=== PATIENT | female | born 1960 | race Caucasian/White ===

== ENCOUNTER → 2020-06-07 | Outpatient (CLI) | payer MEDICAID, OTHER ==
[~2020-06-07] MED LIST: CYCL-707 PO; HYDR-3716 FT
--- NOTE | 2020-06-16 10:55 | REP ---
RIGHT BREAST AND AXILLARY ULTRASOUND COMPARISON: Mammogram and ultrasound performed 05/12/2020 [facility]. Prior mammogram at [facility] 05/12/2020, showed a suspicious density with microcalcifications in the lateral right breast. FINDINGS: Todays ultrasound is performed in the right 10 o'clock region approximately 7 cm from the nipple. At that location, there is a hypoechoic nodule with an echogenic hilum having the appearance of a lymph node measuring 8 x 4 x 5 mm, not significantly enlarged. Right axillary ultrasound is also performed showing multiple lymph nodes. The largest two are measured. Both demonstrate an echogenic fatty hilum and appear relatively unremarkable morphologically. These two larger lymph nodes measure 3.6 x 0.8 x 1.0 cm and 1.3 x 0.5 x 1.7 cm, demonstrating normal short axis dimension. IMPRESSION: ACR 2 benign ultrasound as discussed above at the 10 o'clock position of the right breast 7 cm from the nipple and in the right axillary region. Relatively unremarkable appearing lymph nodes identified as discussed above with echogenic fatty nilton and normal short axis dimensions. Decision to biopsy should be based on clinical grounds. MTDD
== END ==
LOC: M WHC 09:45
PROVIDERS: ATTEND Surgery
DX: R92.2 Inconclusive mammogram (principal)

== ENCOUNTER → 2020-06-16 | Outpatient (CLI) | payer OTHER ==
--- NOTE | 2020-06-16 14:00 | ROOPDOC ---
[facility] Report Of Operation Report of Operation DATE OF PROCEDURE: June 16 2020 DIAGNOSIS: Right breast palpable mass with suspicious mammographic and sonographic findings PROCEDURE: Ultrasound-guided biopsy of right breast palpable mass with clip placement, radiography of the specimen and post biopsy right breast mammogram SURGEON: Beryl Crespo BLOOD LOSS: minimal COMPLICATIONS: none Lidocaine 1% LOT [id number] Expiration 04/2023 Sodium Bicarbonate 8.4% LOT [id number] Expiration 05/2021 Hydromark clip LOT [id number] Expiration 01/2023 SHAPED 3 Bx device: BARD [id number] x10 cm LOT [id number] Expiration 01/2023 Informed consent was obtained. The most common risk and possible complications including bleeding, hematoma, bruising, infection, injury to surrounding structures were explained to the patient and the patient expressed understanding. Patient was placed on the bed in the supine position. Appropriate time out was done stating patients name, date of , and the procedure to be performed. The right breast was prepped and draped in the usual fashion. The ultrasound was used to confirm the location of the lesion in the right breast at 8:00. Plain Lidocaine 1% and 8.4% sodium bicarbonate 10:1 mix was used to anesthetize the skin, the biopsy site and tissues along the anticipated biopsy tract. Small skin incision was made with blade number 11. BARD Marquee 14G cannula with introducer ([id number]) was inserted through the incision and advanced under the ultrasound guidance to position immediately adjacent to the lesion. Next, the introducer was removed and BARD Marquee 14G biopsy device was places in the cannula. Pre-biopsy imaging, and post-biopsy imaging were captured. Five good core biopsies were taken at various levels of the lesion. Core samples were placed in the tray and radiography of the samples was taken showing calcifications present in the samples. Specimen was then placed in formaldehyde, labeled with appropriate biopsy site and patients name, and sent to pathology for evaluation. Next, the biopsy device was withdrawn and a clip introducer was inserted into the biopsy site via the cannula. The SHAPE 3 Hydromark clip was deployed under sonographic guidance. Post-clip placement image was captured. Manual pressure over the biopsy cavity and tract was held after the clip introducer was withdrawn. No bleeding was noted upon removal of the pressure. Post-biopsy mammogram of the right breast was obtained and showed clip in expected position. Postprocedural dressing was placed. Patient tolerated procedure well. Discharge instructions were discussed with the patient and the patient expressed understanding. BERYL CRESPO DO Jun 16, 2020 14:00
[2020-06-16 14:34] VITALS: BP 118/62
--- NOTE | 2020-06-23 15:19 | REP ---
SPECIMEN RADIOGRAPHY RIGHT BREAST HISTORY: Right breast lesion. Ultrasound-guided needle biopsy. Question microcalcifications. FINDINGS: Specimen radiography demonstrates multiple microcalcifications within the removed specimen. MTDD
--- NOTE | 2020-06-23 15:19 | REP ---
POST BIOPSY MAMMOGRAM RIGHT BREAST HISTORY: Ultrasound-guided biopsy right breast. FINDINGS: Following ultrasound-guided biopsy of an area laterally in the right breast, MLO, ML, and CC views of the right breast are performed. There is a metallic clip laterally and posteriorly in the right breast. Heterogeneous fibroglandular tissue was noted throughout the right breast. MTDD
== END ==
LOC: M WHCPRO 10:03
PROVIDERS: ATTEND Surgery
DX: D05.11 Intraductal carcinoma in situ of right breast (principal)

== ENCOUNTER → 2020-06-23 | Outpatient (REF) | payer OTHER ==
[2020-06-23 17:56] LABS: BLOOD UREA NITROGEN 17 MG/DL (7-18); CALCIUM LEVEL 8.9 MG/DL (8.5-10.1); CARBON DIOXIDE LEVEL 26 MEQ/L (21-32); CHLORIDE LEVEL 106 MEQ/L (98-107); CREATININE FOR GFR 0.92 MG/DL (0.55-1.30); GLOMERULAR FILTRATION RATE > 60.0 (>51); GLUCOSE, FASTING 92 MG/DL (70-100); SODIUM LEVEL 138 MEQ/L (136-145)
== END ==
LOC: M PLALAB 14:58
PROVIDERS: ATTEND Surgery
DX: C50.911 Malignant neoplasm of unspecified site of right female breast (principal)

== ENCOUNTER → 2020-07-09 | Outpatient (CLI) | payer OTHER ==
[~2020-07-09] MED LIST changes: +PROHANCE 279.3MG/ML 5ML VIAL As Ordered ONE
--- NOTE | 2020-07-09 16:33 | REP ---
INDICATION: DUCTAL CA RT BREAST. COMPARISON: Mammogram and ultrasound loose skin in [facility] 05/12/2028, right axillary ultrasound 06/07/2020, post biopsy mammogram 06/16/2020. TECHNIQUE: Three Deena MRI imaging was performed with a dedicated breast coil. Axial, coronal, and sagittal T1 and T2 weighted scans were obtained with and without fat saturation in the usual fashion. The study includes dynamically acquired post gadolinium-enhanced imaging with image subtraction. Maximum intensity projection and multi planar reformation imaging is included as well. This study is interpreted with the aid of KelkooD, an FDA approved computer aided detection (CAD) software program, on a dedicated breast MRI workstation. The gadolinium enhancement dose is 10 mL of intravenous ProHance. FINDINGS: There is moderate fibroglandular tissue symmetrically bilaterally. With mild background parenchymal enhancement bilaterally. I do not see significant cystic change in either breast. Nonspecific lymph nodes in both axillary regions are noted, not significantly enlarged using size criteria. Biopsy clip is noted quite posterolaterally in the right breast. There is a very small amount of surrounding fluid. There is mild nodular enhancement at that location. Otherwise no suspicious enhancing mass or morphologic abnormality is seen bilaterally. Incidental note is made of mild bilateral hilar adenopathy. IMPRESSION: BI-RADS category 6 known right breast cancer. Signal dropout is seen at the site of a biopsy clip far posterolaterally in the right breast, at the site of the recent biopsy. There is mild focal nodular enhancement at that location. Otherwise no suspicious enhancing mass or morphologic abnormality is seen elsewhere bilaterally. Axillary lymph nodes are seen bilaterally which are not significantly enlarged. However, there is mild bilateral hilar adenopathy in the chest. Consider CT of the chest with IV contrast to further evaluate. <Electronically signed by Jose C Bai > 07/09/20 [id number]
== END ==
LOC: M RAD 14:06
PROVIDERS: ATTEND Surgery
DX: C50.911 Malignant neoplasm of unspecified site of right female breast (principal)
CPT/HCPCS: A9576; C8908

== ENCOUNTER → 2020-07-19 | Outpatient (CLI) | payer OTHER ==
[~2020-07-19] MED LIST changes: -PROHANCE 279.3MG/ML 5ML VIAL As Ordered ONE
[2020-07-19 08:35] VITALS: BP 112/64
--- NOTE | 2020-07-20 21:05 | ROOPDOC ---
[facility] Report Of Operation Report of Operation DATE OF PROCEDURE: 07/19/20 DIAGNOSIS: Right enlarged axillary lymph node PROCEDURE: Ultrasound guided right axillary lymph node biopsy SURGEON: Beryl Crespo BLOOD LOSS: minimal COMPLICATIONS: none Lidocaine 1% LOT [id number] Expiration 02/2023 Sodium Bicarbonate 8.4% LOT [id number] Expiration02/2021 Hydromark clip LOT [id number] Expiration 01/2023 SHAPE 4 Bx device: TEMNO 20 G [id number] Expiration 02/2024 Informed consent was obtained. The most common risk and possible complications including bleeding, hematoma, bruising, infection, injury to surrounding structures were explained to the patient and the patient expressed understanding. Patient was placed on the bed in the supine position. Appropriate time out was done stating patients name, date of , and the procedure to be performed. The right axilla was prepped and draped in the usual fashion. The ultrasound was used to confirm the location of enlarged lymph node with cortex measuring 5 mm. Plain Lidocaine 1% and 8.4% sodium bicarbonate 10:1 mix was used to anesthetize the skin, the biopsy site and tissues along the anticipated biopsy tract. Small skin incision was made with blade number 11. Temno 20 G cannula with introducer was inserted through the incision and advanced under the ultrasound guidance to position immediately adjacent to the enlarged lymph node with 5 mm cortex. Next, the introducer was removed and Temno 20 G biopsy device was places in the cannula. Pre-biopsy imaging, and post-biopsy imaging were captured. Five good core biopsies were taken at various levels of the lesion. Specimen was placed in formaldehyde, labeled with appropriate biopsy site and patients name, and sent to pathology for evaluation. Next, the biopsy device and cannula were withdrawn and a clip introducer was inserted into the position immediately adjacent to the biopsied lymph node. The shape 4 Hydromark clip was deployed under sonographic guidance. Post-clip placement image was captured. Manual pressure over the biopsy cavity and tract was held after the clip introducer was withdrawn. No bleeding was noted upon removal of the pressure. Postprocedural dressing was placed. Patient tolerated procedure well. Discharge instructions were discussed with the patient and the patient expressed understanding. BERYL CRESPO DO Jul 20, 2020 21:05
--- NOTE | 2020-07-21 12:46 | REP ---
INDICATION: R59.9 RT PALPABLE LYMPH NODE,U/S GUIDED BIOPSY. COMPARISON: 06/07/2020. TECHNIQUE: Real-time sonographic guidance was provided for Dr. Coleman. FINDINGS: Under ultrasound guidance Dr. Coleman performed biopsy of a right axillary nodule. IMPRESSION: Ultrasound guidance provided for Dr. Coleman for right axillary nodule biopsy. RECOMMENDATION: Clinical follow-up. <Electronically signed by Jose C Bai > 07/21/20 0377
== END ==
LOC: M WHCPRO 06:27
PROVIDERS: ATTEND Surgery
DX: R59.9 Enlarged lymph nodes, unspecified (principal)

== ENCOUNTER → 2020-07-28 | Outpatient (CLI) | payer OTHER ==
[~2020-07-28] MED LIST changes: +ISOVUE-370 76% 100ML VIAL As Ordered ONE
--- NOTE | 2020-07-29 07:25 | REP ---
INDICATION: MAL ARIE OF RT BREAST, HILAR ADENOPATHY COMPARISON: None TECHNIQUE: Axial contrast enhanced images from the thoracic inlet to the upper abdomen with coronal and sagittal reformations using 75 ml Isovue 370 intravenous contrast material. [address] CT examination was performed using the following dose reduction techniques: Automated exposure control, adjustment of mA and/or kv according to the patient's size, and use of iterative reconstruction technique. FINDINGS: 7 mm right lower lobe pulmonary nodule (image 53), 9 mm left lower lobe pulmonary nodule (image 58) as well as few smaller 2 mm densities and bilateral hilar adenopathy is concerning for metastatic disease given the patient's history of breast cancer. Underlying chronic age-related interstitial changes along with mild emphysematous changes including few scattered subpleural bullae and mild bronchiectasis identified. No pleural effusion. No pneumothorax. Further evaluation of the mediastinum demonstrates normal thoracic aorta, pulmonary vasculature, and heart/pericardium. Incidental calcified right hilar lymph nodes are also noted. The osseous structures appear intact and without obvious focal osseous abnormality. Limited upper abdomen demonstrates normal bilateral adrenal glands. IMPRESSION: 1. Bilateral pulmonary nodules along with bilateral hilar adenopathy suspicious for metastatic disease. PET-CT follow-up as well as tissue sampling may be warranted. 2. Nonacute findings as above. <Electronically signed by Gabe Dee > 07/29/20 0778
== END ==
LOC: M RAD 16:34
PROVIDERS: ATTEND Surgery
DX: R91.8 Other nonspecific abnormal finding of lung field (principal); R59.0 Localized enlarged lymph nodes; C50.911 Malignant neoplasm of unspecified site of right female breast
CPT/HCPCS: 71260; Q9967

== ENCOUNTER → 2020-09-30 | Outpatient (CLI) | payer OTHER ==
[~2020-09-30] MED LIST changes: +ANAS1TAB2 PO; -ISOVUE-370 76% 100ML VIAL As Ordered ONE; +SERT25TA21 PO; +SUMA25TA3 PO; +XANA0.25 PO
== END ==
LOC: M LABSMTC 10:42
PROVIDERS: ATTEND Anesthesiology
DX: Z01.812 Encounter for preprocedural laboratory examination (principal); Z20.822 Contact with and (suspected) exposure to COVID-19

== ENCOUNTER 2020-10-05 06:35 | Day surgery (SDC) | payer OTHER ==
[~2020-10-05] VITALS: Ht 152.4 cm; Wt 56.2 kg
[~2020-10-05 06:35] MED LIST changes: +HEPARIN SOD (PORCINE) 5000UNITS/ML 1ML VIAL/SYRINGE SQ ONE; +LR 1,000 ML IV ONE; +NS 1,000 ML IV SCH; +ceFAZolin SOD 2 GM in IV 1 EA IV ONE
--- OUTSIDE RECORDS SUMMARY | 2020-10-05 06:40 | CCD ---
Author Author [facility] Organization [facility] Address Unknown Phone Unavailable Care Team Providers Care Truck Driver'S Offsider Name Role Phone Tricia Coleman Unavailable PROBLEMS Type Condition ICD9-CM Code [id number] Code Onset Dates Condition S tatus SNOMED Code Notes Problem Smoker F17.200 Active 70344104 Problem Malignant neoplasm of unspecified site of right female breast C50.911 Active 101791803 Problem Malignant neoplasm of right female breast, unspecified estrogen receptor status, unspecified site of breast C50.911 Active 3 75049342 ALLERGIES Allergen (clinical drug ingredient) Drug/Non Drug Allergy do cumented on EMR Reaction Allergy Type Onset Date Status Sulfacet-R Hives Drug Allergy Active ENCOUNTERS from 1962 to 2020-08-31 Encounter Location Date Provider Diagnosis [facility] Breast Care [address] [place] [address] Aug, Tricia Coleman IMMUNIZATIONS No Information SOCIAL HISTORY Sex Assigned At : Social History Observation Description Sex Assigned At Unknown REASON FOR REFERRAL No Information VITAL SIGNS No information MEDICATIONS Medication SIG (Take, Route, Frequency, Duration) Notes Start Da te End Date Status Zoloft 25 MG 1 tablet Orally Once a day Active PROCEDURES No Information RESULTS No Results REASON FOR VISIT Pet Scan Service Goals Section No Information Health Concerns No Information MEDICAL EQUIPMENT No Information MENTAL STATUS No Information FUNCTIONAL STATUS No Information ASSESSMENTS No Information PLAN OF TREATMENT No Information Insurance Providers Payer Name Payer Address Payer Phone Insured Name Patient Relati onship to Insured Coverage Start Date Coverage End Date REPLACED BY [facility] [address] [place] [phone] BRIDGER CHAPARRO self
--- OUTSIDE RECORDS SUMMARY | 2020-10-05 06:40 | CCD ---
Author Author [facility] Organization [facility] Address Unknown Phone Unavailable Care Team Providers Care Brake Operator Sheet Metal Name Role Phone Tricia Coleman Unavailable PROBLEMS Type Condition ICD9-CM Code [id number] Code Onset Dates Condition S tatus SNOMED Code Notes Problem Smoker F17.200 Active 29486337 Problem Malignant neoplasm of unspecified site of right female breast C50.911 Active 026286989 Problem Malignant neoplasm of right female breast, unspecified estrogen receptor status, unspecified site of breast C50.911 Active 3 97510794 ALLERGIES Allergen (clinical drug ingredient) Drug/Non Drug Allergy do cumented on EMR Reaction Allergy Type Onset Date Status Sulfacet-R Hives Drug Allergy Active ENCOUNTERS from 1960 to 2020-09-19 Encounter Location Date Provider Diagnosis [facility] Breast [facility] [address] [place] [address] Aug, Tricia Coleman Malignant neoplasm of unspecified site o f right female breast C50.911 and Estrogen receptor positive status [ER+] Z17.0 IMMUNIZATIONS No Information SOCIAL HISTORY Sex Assigned At : Social History Observation Description Sex Assigned At Unknown REASON FOR REFERRAL No Information VITAL SIGNS No information MEDICATIONS Medication SIG (Take, Route, Frequency, Duration) Notes Start Da te End Date Status Zoloft 25 MG 1 tablet Orally Once a day Active PROCEDURES No Information RESULTS No Results REASON FOR VISIT PET scan reordered Goals Section No Information Health Concerns No Information MEDICAL EQUIPMENT No Information MENTAL STATUS No Information FUNCTIONAL STATUS No Information ASSESSMENTS Encounter Date Diagnosis Assessment Notes Treatment Notes Treatm ent Clinical Notes Aug, Malignant neoplasm of unspec ified site of right female breast (ICD- 10 - C50.911) Aug, Estrogen receptor positive status [ER+] (ICD-10 - Z17.0) PLAN OF TREATMENT Treatment Notes Test Name Order Date [facility] PET CT SCAN: SKULL TO MID-THIGH 2020-09-19 Insurance Providers Payer Name Payer Address Payer Phone Insured Name Patient Relati onship to Insured Coverage Start Date Coverage End Date [facility] [employer] [address] [facility] [phone] BRIDGER CHAPARRO self
--- OUTSIDE RECORDS SUMMARY | 2020-10-05 06:40 | CCD ---
Author Author [facility] Organization [facility] Address Unknown Phone Unavailable Care Team Providers Care Supervisor Stave Cutting Name Role Phone Tricia Coleman Unavailable PROBLEMS Type Condition ICD9-CM Code CUA81-II Code Onset Dates Condition S tatus SNOMED Code Notes Problem Smoker F17.200 Active 61527458 Problem Malignant neoplasm of unspecified site of right female breast C50.911 Active 804094293 Problem Malignant neoplasm of right female breast, unspecified estrogen receptor status, unspecified site of breast C50.911 Active 3 29471721 ALLERGIES Allergen (clinical drug ingredient) Drug/Non Drug Allergy do cumented on EMR Reaction Allergy Type Onset Date Status Sulfacet-R Hives Drug Allergy Active ENCOUNTERS from 1962 to 2020-08-27 Encounter Location Date Provider Diagnosis [facility] Breast Care [address] [place] [address] 11 Jul, 2020 Tricia Coleman IMMUNIZATIONS No Information SOCIAL HISTORY Sex Assigned At : Social History Observation Description Sex Assigned At Unknown REASON FOR REFERRAL No Information VITAL SIGNS No information MEDICATIONS Medication SIG (Take, Route, Frequency, Duration) Notes Start Da te End Date Status Zoloft 25 MG 1 tablet Orally Once a day Active PROCEDURES No Information RESULTS No Results REASON FOR VISIT [facility] Goals Section No Information Health Concerns No Information MEDICAL EQUIPMENT No Information MENTAL STATUS No Information FUNCTIONAL STATUS No Information ASSESSMENTS No Information PLAN OF TREATMENT No Information Insurance Providers Payer Name Payer Address Payer Phone Insured Name Patient Relati onship to Insured Coverage Start Date Coverage End Date [facility] [employer] [facility] [address] [place] [phone] CHAPO CHAPARROIA self
--- OUTSIDE RECORDS SUMMARY | 2020-10-05 06:40 | CCD ---
Author Author [facility] Organization [facility] Address Unknown Phone Unavailable Care Team Providers Care Site Inspector Name Role Phone Tricia Coleman Unavailable PROBLEMS Type Condition ICD9-CM Code [id number] Code Onset Dates Condition S tatus SNOMED Code Notes Problem Smoker F17.200 Active 27527900 Problem Malignant neoplasm of unspecified site of right female breast C50.911 Active 897484093 Problem Malignant neoplasm of right female breast, unspecified estrogen receptor status, unspecified site of breast C50.911 Active 3 [id number] ALLERGIES Allergen (clinical drug ingredient) Drug/Non Drug Allergy do cumented on EMR Reaction Allergy Type Onset Date Status Sulfacet-R Hives Drug Allergy Active ENCOUNTERS from 1962 to 2020-08-10 Encounter Location Date Provider Diagnosis [facility] [address] [place] [address] Jun, Tricia Coleman Malignant neoplasm of right female breas t, unspecified estrogen receptor status, unspecified site of breast C50.911 ; Genetic testing Z13.79 and Smoker F17.200 IMMUNIZATIONS No Information SOCIAL HISTORY Sex Assigned At : Social History Observation Description Sex Assigned At Unknown REASON FOR REFERRAL No Information VITAL SIGNS Weight 112.8 lbs Jun, Weight-kg 51.17 kg Jun, Height 60 in Jun, BMI 22.03 kg/m2 Jun, Heart Rate 64 /min Jun, Respiratory Rate 18 /min Jun, Temperature 97.1 degrees Fahrenheit Jun, Oximetry 97 Jun, Blood pressure systolic 132 mm Hg Jun, Blood pressure diastolic 68 mm Hg Jun, MEDICATIONS Medication SIG (Take, Route, Frequency, Duration) Notes Start Da te End Date Status Zoloft 25 MG 1 tablet Orally Once a day Active PROCEDURES No Information RESULTS Component Value Reference Range Basic Metabolic Profile (BMP) Reviewed date:07/09/2020 18:52:32 Interpretation: Performing Lab:[facility], [facility] [address] [facility] [address] , ,[place] [id number] GLUCOSE, FASTING 92 70-100 BLOOD UREA NITROGEN 17 7-18 CREATININE FOR GFR 0.92 0.55-1.30 GLOMERULAR FILTRATION RATE > 60.0 >51 SODIUM LEVEL 138 136-145 POTASSIUM SERUM 4.0 3.5-5.1 CHLORIDE LEVEL 106 98-107 CARBON DIOXIDE LEVEL 26 21-32 CALCIUM LEVEL 8.9 8.5-10.1 REASON FOR VISIT 1 WEEK FOLLOW UP BIOPSY Goals Section No Information Health Concerns No Information MEDICAL EQUIPMENT No Information MENTAL STATUS No Information FUNCTIONAL STATUS No Information ASSESSMENTS Encounter Date Diagnosis Assessment Notes Treatment Notes Treatm ent Clinical Notes Jun, Malignant neoplasm of right female breast, unspecified estrogen receptor status, unspecified site of breast (ICD-10 - C50.911) RIGHT BREAST CANCER (9:00) IDC ER? SC ? HER2 ? GRADE 2 cT 1b-c (6 mm on US, 1.5cm on mammo) cN0-1 (palpable, US negative) cM0 STAGE 1-2 PLAN: 1: awaiting results of ER/SC/HER2, sent to [facility] 2. MRI of breast to delineate extent of disease, BMP t check sCr prior to contrast 3. Will defer surgical decision until post MRI 4. Pt had palpable R axill LN (she is very thin), however US is negative, Will wait for MRI to make decision if the palpable LN needs bx or not 5. Genetic testing, will provide pt with the kit at f/u as the lab is closed today 6. Oncotype DX postop if cancer meets criteria 7. Referral to Medical Oncology post surgery 8. Referral to Radiation Oncology post surgery 9. May need Plastic referral for oncoplasty vs recon I reviewed the pathology results with Ms. Chaparro and I informed her that the preliminary report is positive for breast cancer: invasive ductal carcinoma GRADE2. I informed patient that we are still waiting for the results of ER/SC/HER2 receptors. Those were sent to [facility] and will be back in couple of d ays. I will update patient on those results. We have reviewed the overall breast cancer evaluation and staging. Based on the current information Ms. Chaparro cancer on sonography measures 6mm. I believe that this likely corresponds with the invasive component. On Mammogram, there are calcifications spanning 1.5 cm which may represent in-situ component and will also need to be removed. She is likely at T1 category. We will get MRI of the breast to further delineate the extent of the disease and assure that no additional foci of cancer are present. BMP will be ordered as well to check kidney function prior to contrast Ms. Chaparro was found to have a small palpable node in the right axilla on exam, however she is very thin. The US of the right axilla did not show abnormality. It is possible that this is just small lymph node felt due to body habitus. I will reassess this node after MRI. I have discussed various component of multidisciplinary approach to breast cancer which includes local treatments with surgery and radiation therapy and systemic treatments with antihormonal pill and possible chemotherapy. Regarding surgical component of the treatment, I explained that, surgery carries risks and potential complications, most common of which are risk of bleeding, infection and injury to surrounding structures. I informed patient that her current smoking stattus increases her risks of complictions regardless of which surgical approach is chosen. We have discussed that with breast conserving surgery there is a higher risk of locoregional recurrence of tumor because there is more [place] breast tissue left behind. The percentage of locoregional recurrence is lower with mastectomy than with breast conserving surgery but it is not zero as it is impossible to remove 100% of all breast tissue cells during mastectomy. There is also 10-20% chance of positive margins with breast conserving surgery which will warrant additional surgery to clear those margins. I also explained that with breast conserving surgery she may need to have radiation therapy in order to assure equal survival between the breast conservative treatment and mastectomy. Radiation therapy after mastectomy will be warranted only if the final mastectomy margins are positive or if lymph nodes are positive. We have also discussed that if she chooses mastectomy, she is entitled to reconstruction if she wishes to have it. Reconstruction options will be discussed in details with plastic surgeon. I have explained to the patient that reconstruction is considered part of breast cancer treatment and is covered by insurance. I explained that in cases of invasive cancer, we pursue sentinel lymph node biopsy in fit patients in addition to removal of the tumor from the breast. I explained that this is done to test the very first lymph nodes draining the breast for presence of cancer. This will be done with radionucleotide injection and possibly with blue dye tracer. If the lymph nodes contain cancer, depending on what surgery was performed and how many lymph nodes are positive, additional surgery and/ or radiation therapy to axilla may be warranted as well. I will send a prescription for the EMLA cream to be applied to the affected nipple in order to decrease discomfort of injections prior to scheduling patient for surgery. Regarding evaluation of contralateral breast, she had a screening mammogram done and no abnormality was identified. We are getting MRI of the breast which will also evaluate contralateral breast. Since patient was diagnosed with breast cancer, she qualifies for genetic testing. We will provide her with the genetic testing kit at the follow-up as the lab is closed already today. I explained that it can take a few weeks for the results to come back assuming that her insurance company pays for the test. I discussed with the patient that Oncotype Dx is used to predict the probability of cancer coming back. It is used in hormone positive Her2 negative tumors which were not treated previously with neoadjuvant chemotherapy. I explained that if the test comes back with a high score, chemotherapy may be considered. We will plan on getting Oncotype Dx after surgery if patient has cancer which meets criteria for this test. I will place referral for Medical Oncology. This appointment can be scheduled after surgery. I explained to the patient that she may need to follow up with radiation oncology if she wants to pursue breast conserving surgery or if lymph nodes or mastectomy margins are positive. I will place this referral. She can schedule appointment with [facility] after surgery. Finally, I asked patient to schedule appointment with her primary care doctor as we will need a surgical clearance, latest labs and imaging (CBC, BMP, CXR,EKG). Patient was advised to quit smoking as well. All questions were answered. Patient agrees with the plan. Time spent directly counseling patient: 60 min. Jun, Genetic testing (ICD-10 - Z13.79) Patient is eligible for genetic testing base on her diagnosis of breast cancer. Possible outcomes of genetic testing were discussed with patient with emphasis on the fact that the majority of cancers are not related to germline mutations but are rather due to somatic mutations. I have explained that the genetic testing can come back as positive for specific pathological gene mutation, as negative, or as variant of unknown significance (VUS) which means that there is duration in the gene however we do not have enough information to determine the significance importance of this ulceration. I explained to the patient that we do not asked on VUS and treat them as negative until they are reclassified as pathologically significant mutation or benign alteration. We have discussed that regardless of test outcome patient cannot have her health insurance denied in the future. Patient is interested in proceeding with genetic testing. The lab is closed today already. We will provide her with the blood kit on followup. We will update her about the results of genetic testing when the test is completed. ADDENDUM: I GAVE PATIENT THE GENETIC TESTING KIT ON 06/23/20. Jun, Smoker (ICD-10 - F17.200) Smoking cessation was advised PLAN OF TREATMENT Treatment Notes Assessment Notes Clinical Notes Malignant neoplasm of right female breas t, unspecified estrogen receptor status, unspecified site of breast RIGHT BREAST CANCER (9:00)IDC ER? SC ? H ER2 ? GRADE 2cT 1b-c (6 mm on US, 1.5cm on mammo) cN0-1 (palpable, US negative) cM0 STAGE 1- 2PLAN:1: awaiting results of ER/SC/HER2, sent to [facility]. MRI of breast to delineate extent of disease, BMP t check sCr prior to contrast3. Will defer surgical decision until post MRI4. Pt had palpable R axill LN (she is very thin), however US is negative, Will wait for MRI to make decision if the palpable LN needs bx or not5. Genetic testing, will provide pt with the kit at f/u as the lab is closed today6. Oncotype DX postop if cancer meets criteria7. Referral to Medical Oncology post surgery8. Referral to Radiation Oncology post surgery9. May need Plastic referral for oncoplasty vs reconI reviewed the pathology results with Ms. Chaparro and I informed her that the preliminary report is positive for breast cancer: invasive ductal carcinoma GRADE2. I informed patient that we are still waiting for the results of ER/SC/HER2 receptors. Those were sent to [facility] and will be back in couple of days. I will update patient on those results.We have reviewed the overall breast cancer evaluation and staging. Based on the current information Ms. Chaparro cancer on sonography measures 6mm. I believe that this likely corresponds with the invasive component. On Mammogram, there are calcifications spanning 1.5 cm which may represent in-situ component and will also need to be removed. She is likely at T1 category. We will get MRI of the breast to further delineate the extent of the disease and assure that no additional foci of cancer are present. BMP will be ordered as well to check kidney function prior to contrastMs. Van was found to have a small palpable node in the right axilla on exam, however she is very thin. The US of the right axilla did not show abnormality. It is possible that this is just small lymph node felt due to body habitus. I will reassess this node after MRI.I have discussed various component of multidisciplinary approach to breast cancer which includes local treatments with surgery and radiation therapy and systemic treatments with antihormonal pill and possible chemotherapy.Regarding surgical component of the treatment, I explained that, surgery carries risks and potential complications, most common of which are risk of bleeding, infection and injury to surrounding structures. I informed patient that her current smoking stattus increases her risks of complictions regardless of which surgical approach is chosen.We have discussed that with breast conserving surgery there is a higher risk of locoregional recurrence of tumor because there is more [place] breast tissue left behind. The percentage of locoregional recurrence is lower with mastectomy than with breast conserving surgery but it is not zero as it is impossible to remove 100% of all breast t issue cells during mastectomy. There is also 10-20% chance of positive margins with breast conserving surgery which will warrant additional surgery to clear those margins. I also explained that with breast conserving surgery she may need to have radiation therapy in order to assure equal survival between the breast conservative treatment and mastectomy. Radiation therapy after mastectomy will be warranted only if the final mastectomy margins are positive or if lymph nodes are positive.We have also discussed that if she chooses mastectomy, she is entitled to reconstruction if she wishes to have it. Reconstruction options will be discussed in details with plastic surgeon. I have explained to the patient that reconstruction is considered part of breast cancer treatment and is covered by insurance.I explained that in cases of invasive cancer, we pursue sentinel lymph node biopsy in fit patients in addition to removal of the tumor from the breast. I explained that this is done to test the very first lymph nodes draining the breast for presence of cancer. This will be done with radionucleotide injection and possibly with blue dye tracer. If the lymph nodes contain cancer, depending on what surgery was performed and how many lymph nodes are positive, additional surgery and/ or radiation therapy to axilla may be warranted as well. I will send a prescription for the EMLA cream to be applied to the affected nipple in order to decrease discomfort of injections prior to scheduling patient for surgery.Regarding evaluation of contralateral breast, she had a screening mammogram done and no abnormality was identified. We are getting MRI of the breast which will also evaluate contralateral breast.Since patient was diagnosed with breast cancer, she qualifies for genetic testing. We will provide her with the genetic testing kit at the follow-up as the lab is closed already today. I explained that it can take a few weeks for the results to come back assuming that her insurance company pays for the test.I discussed with the patient that Oncotype Dx is used to predict the probability of cancer coming back. It is used in hormone positive Her2 negative tumors which were not treated previously with neoadjuvant chemotherapy. I explained that if the test comes back with a high score, chemotherapy may be considered. We will plan on getting Oncotype Dx after surgery if patient has cancer which meets criteria for this test.I will place referral for Medical Oncology. This appointment can be scheduled after surgery.I explained to the patient that she may need to follow up with radiation oncology if she wants to pursue breast conserving surgery or if lymph nodes or mastectomy margins are positive. I will place this referral. She can schedule appointment with [facility] after surgery.Finally, I asked patient to schedule appointment with her primary care doctor as we will need a surgical clearance, latest labs and imaging (CBC, BMP, CXR,EKG). Patient was advised to quit smoking as well.All questions were answered. Patient agrees with the plan.Time spent directly counseling patient: 60 min. Genetic testing Patient is eligible for gene tic testing base on her diagnosis of breast cancer.Possible outcomes of genetic testing were discussed with patient with emphasis on the fact that the majority of cancers are not related to germline mutations but are rather due to somatic mutations.I have explained that the genetic testing can come back as positive for specific pathological gene mutation, as negative, or as variant of unknown significance (VUS) which means that there is duration in the gene however we do not have enough information to determine the significance importance of this ulceration. I explained to the patient that we do not asked on VUS and treat them as negative until they are reclassified as pathologically significant mutation or benign alteration.We have discussed that regardless of test outcome patient cannot have her health insurance denied in the future.Patient is interested in proceeding with genetic testing. The lab is closed today already. We will provide her with the blood kit on followup. We will update her about the results of genetic testing when the test is completed.ADDENDUM: I GAVE PATIENT THE GENETIC TESTING KIT ON 06/23/20. Smoker Smoking cessation was advised Treatment Notes Test Name Order Date MRI Breast Bilat with and w/o Contrast 2020-08-10 Insurance Providers Payer Name Payer Address Payer Phone Insured Name Patient Relati onship to Insured Coverage Start Date Coverage End Date [facility] [employer] [facility] [address] [facility] [id number] BRIDGER CHAPARRO self
--- OUTSIDE RECORDS SUMMARY | 2020-10-05 06:40 | CCD ---
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 Name Role Phone Tricia Coleman Unavailable PROBLEMS Type Condition ICD9-CM Code [id number] Code Onset Dates Condition S tatus SNOMED Code Notes Problem Smoker F17.200 Active 52925225 Problem Malignant neoplasm of unspecified site of right female breast C50.911 Active 018330435 Problem Malignant neoplasm of right female breast, unspecified estrogen receptor status, unspecified site of breast C50.911 Active 3 [id number] ALLERGIES Allergen (clinical drug ingredient) Drug/Non Drug Allergy do cumented on EMR Reaction Allergy Type Onset Date Status Sulfacet-R Hives Drug Allergy Active ENCOUNTERS from 1960 to 2020-09-13 Encounter Location Date Provider Diagnosis [facility] Breast [facility] [address] [place] [address] Aug, Tricia Coleman IMMUNIZATIONS No Information SOCIAL [...] No Results REASON FOR VISIT Pet Scan Goals Section No Information Health Concerns No Information MEDICAL EQUIPMENT No Information MENTAL STATUS No Information FUNCTIONAL STATUS No Information ASSESSMENTS No Information PLAN OF TREATMENT No Information Insurance Providers Payer Name Payer Address Payer Phone Insured Name Patient Relati onship to Insured Coverage Start Date Coverage End Date [facility] [employer] [address] [phone] BRIDGER CHAPARRO self
--- OUTSIDE RECORDS SUMMARY | 2020-10-05 06:40 | CCD | Summary of Care ---
Author Author [facility] Organization [facility] Address Unknown Phone Unavailable Care Team Providers Care Compositor Apprentice Name Role Phone Lynn Syed MD PCP Reason for Referral * Imaging (Emergency) Referred By Contact Referred To Contact Status Reason Specialty Diagnoses / Procedures Sheyla Hernandez MD [address] [place] [address] Fax Pet Scan [address] [place] [address] Authorized Radiology Diagnoses Lung nodule seen on imaging study P rocedures PET/CT skull base to mid thigh Reason for Visit * Imaging (Emergency) Referred By Contact Referred To Contact Status Reason Specialty Diagnoses / Procedures Sheyla Hernandez MD [address] [place] [address] Fax Pet Scan [address] [place] [address] Authorized Radiology Diagnoses Lung nodule seen on imaging study P rocedures PET/CT skull base to mid thigh Encounter Details Care Team Description Date Type Department Sheyla Hernandez MD [address] [place] [address] Lung nodule seen on imaging study 09/15/2020 [facility] RADIOLOGY PET SCAN Encounter FAXTON [address] [place] [address] Allergies Comments Active Allergy Reactions Severity Noted Date Sulfaguanidine 08/11/2020 documented as of this encounter (statuses as of 09/16/2020) Medications End Date Status Medication Sig Dispensed Refills Start Date Active ALPRAZolam (XANAX) 0.25 Take 0.25 mg 0 mg tablet by mouth at night if needed for anxiety. Active acetaminophen-codeine 0 (TYLENOL #2) 300-15 mg 0 per tablet Active sertraline (ZOLOFT) 25 mg Take 25 mg by 0 07/18 tablet mouth 1 (one) 0 time each day. Active SUMAtriptan (IMITREX) 25 TAKE 1 TABLET 0 07/29 mg tablet BY MOUTH AT 0 THE ONSET OF THE HEADACHE IF NO RELIEF MAY REPEAT ONE TAB IN 2 HOURS. MAX DAILY DOSE IS 4 TABS 03/07/2021 Active anastrozole (ARIMIDEX) 1 Swallow whole 30 tablet 5 mg chemo tablet with a drink 0 of water.1 TAB PO DAILY documented as of this encounter (statuses as of 09/16/2020) Active Problems Problem Noted Date Anxiety 08/16/2020 Head injury without skull fracture 08/16/2020 Breast cancer, right 08/11/2020 Osteoarthritis 04/14/2014 Overview: left hip, hand documented as of this encounter (statuses as of 09/16/2020) Immunizations Name Administration Dates Next Due Influenza, 08/18/2020 injectable,quadrivalent, preservative free documented as of this encounter Social History Date Tobacco Use Types Packs/Day Years Used Current Every Day Smoker Cigarettes 1.5 40 Drinks/Week oz/Week Comments Alcohol Use Not Currently Sex Assigned at Date Recorded Not on file Date Recorded COVID-19 Exposure Response 09/15/2020 1:32 PM EST In the last month, have you been in contact with No / Unsure someone who was confirmed or suspected to have Coronavirus / COVID-19? documented as of this encounter Last Filed Vital Signs Not on filedocumented in this encounter Plan of Treatment Health Maintenance Due Date Last Done Comments Mammogram (every 2 years) 1960 MMR Vaccines (1 of - 11/27/1963 Standard series) Varicella Vaccines (1 of 11/27/1963 2 - 2-dose childhood series) DTaP,Tdap,and Td Vaccines 1969 (1 - Tdap) Cervical Cancer Screening 1992 Colorectal Cancer 2013 Screening Lung Cancer Screening 2017 Pneumococcal Vaccine: 65+ 11/27/2027 Years (1 of 1 - PPSV23) Influenza Vaccine Completed 08/18/2020 HIB Vaccines Aged Out No longer eligible based on patient's age to complete this topic Hepatitis A Vaccines Aged Out No longer eligibl e based on patient's age to complete this topic Hepatitis B Vaccines Aged Out No longer eligibl e based on patient's age to complete this topic IPV Vaccines Aged Out No longer eligible based on patient's age to complete this topic documented as of this encounter Procedures Comments Procedure Name Priority Date/Time Associated Diag nosis PET/CT SKULL BASE TO MID STAT 09/15/2020 Lung nodule seen on THIGH 3:11 PM EST imaging study documented in this encounter Results * PET/CT skull base to mid thigh (09/15/2020 3:11 PM EST) Specimen Impressions Performed At NODULES IN THE POSTERIOR LOWER LOBES DO NOT HAVE SIGN IFICANT [facility] INCOMING PS360 METABOLIC UPTAKE. RESULTING AGENCY FOLLOW-UP LOW DOSE CHEST CT IN ONE YEA R WOULD BE REASONABLE. Electronically Signed by Dr Olivier Ibrahim MD 09/15/2020 3:17 PM Narrative Performed At Patient: NATALY ARAUJO [facility] INCOMING PS360 RESULTING AGENCY : 1960 [facility] Procedure: PET/CT SKULL BASE TO MID THI Provider: SHEYLA HERNANDEZ PET/CT HISTORY: Initial treatment strategy. Right lateral breast cancer diagnosed June.1: Solitary pulmonary n odule TECHNIQUE: Axial 3.75 mm images were ob tained from the base of the skull to the bottom of the thighs with low-dose prot ocol CT. Following intravenous administration 11.9 mCi of F-18 FDG PET scan was performed from base of skull to upper thighs. Co-registration was perfo rmed 3-D reconstructed imaging performed. COMPARISON: Chest CT 07/28/2020 FINDINGS: HEAD AND NECK: No hypermetabolism is se en in the neck. 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 This does not have abnormal metabolic uptake. There is additional nodule in the post erior medial left lower lobe measuring approximately 7 mm. This also does not have significant me tabolic uptake. FINDINGS are stable from prior recent chest CT. No suspicious nodules have developed. No hilar or mediastinal adenopathy is seen. No pleural effusion seen. The heart is not enlarged. No hyp ermetabolic activity is seen. ABDOMEN AND PELVIS: The liver is unremarkable. Gallbladder is unremarkable. Spleen is unremarkable. Pancreas is unremarkable. Kidneys are unremarkable. No bowel abnormality seen. No retroperitoneal or pelvic adenopat hy is seen. No abnormal metabolic activity is seen. OSSEOUS STRUCTURES:Bony structures show no hypermetabolic focus to suggest metastatic disease. No body wall lesion is identified. Procedure Note Interface, Radiology Results In - 09/15/2020 3:18 PM EST Patient: NATALY ARAUJO : 1960 PACS System: [facility] [place] Procedure: PET/CT SKULL BASE TO MID THIGH Provider: SHEYLA HERNANDEZ PET/CT HISTORY: Initial treatment strategy. Right lateral breast cancer diagnosed June.1: Solitary pulmonary nodule TECHNIQUE: Axial 3.75 mm images were obtained from the base of the skull to the bottom of the thighs with low-dose protocol CT. Following intravenous administration 11.9 mCi of F-18 FDG PET scan was performed from base of skull to upper thighs. Co-registration was performed 3-D reconstructed imaging performed. COMPARISON: Chest CT 07/28/2020 FINDINGS: HEAD AND NECK: No hypermetabolism is seen in the neck. THORAX: There is a nodule in the posterolateral right lower lobe, measuring 7 mm which is stable from previous exam. This does not have abnormal metabolic uptake. There is additional nodule in the posterior medial left lower lobe measuring approximately 7 mm. This also does not have significant metabolic uptake. FINDINGS are stable from prior recent chest CT. No suspicious nodules have developed. No hilar or mediastinal adenopathy is seen. No pleural effusion seen. The heart is not enlarged. No hypermetabolic activity is seen. ABDOMEN AND PELVIS: The liver is unremarkable. Gallbladder is unremarkable. Spleen is unremarkable. Pancreas is unremarkable. Kidneys are unremarkable. No bowel abnormality seen. No retroperitoneal or pelvic adenopathy is seen. No abnormal metabolic activity is seen. OSSEOUS STRUCTURES:Bony structures show no hypermetabolic focus to suggest metastatic disease. No body wall lesion is identified. IMPRESSION: NODULES IN THE POSTERIOR LOWER LOBES DO NOT HAVE SIGNIFICANT METABOLIC UPTAKE. FOLLOW-UP LOW DOSE CHEST CT IN ONE YEAR WOULD BE REASONABLE. Electronically Signed by Dr Olivier Ibrahim MD 09/15/2020 3:17 PM Performing Organization Address City/State/Zipcode Ph one Number [facility] INCOMING PS360 RESULTING AGENCY documented in this encounter Visit Diagnoses Diagnosis Lung nodule seen on imaging study documented in this encounter Administered Medications Action Date Dose Rate Site Medication Order MAR Action 09/15/2020 1:30 PM EST 11.91 millicuries Left A ntecubital FLUDEOXYGLUCOSE F 18 (FDG 18) INJECTION Given SOLUTION (FDG 18) 200 mCi/mL injection 11.91 millicurie 11.91 millicurie, intravenous, Once in imaging, Starting Sun09/15/20 at 1330, 1 dose documented in this encounter Insurance Type Payer Benefit Subscriber ID Effective Phone Address Plan / Dates Group [facility]ILD [id number] 2019-P [place] [phone] documented as of this encounter
--- OUTSIDE RECORDS SUMMARY | 2020-10-05 06:40 | CCD ---
Author Author [facility] Organization [facility] Address Unknown Phone Unavailable Care Team Providers Care Flow Coordinator Name Role Phone Tricia Coleman Unavailable PROBLEMS Type Condition ICD9-CM Code UTV02-RE Code Onset Dates Condition S tatus SNOMED Code Notes Problem Smoker F17.200 Active 63176774 Problem Malignant neoplasm of unspecified site of right female breast C50.911 Active 890111210 Problem Malignant neoplasm of right female breast, unspecified estrogen receptor status, unspecified site of breast C50.911 Active 3 46146883 ALLERGIES Allergen (clinical drug ingredient) Drug/Non Drug Allergy do cumented on EMR Reaction Allergy Type Onset Date Status Sulfacet-R Hives Drug Allergy Active ENCOUNTERS from 1960 to 2020-08-19 Encounter Location Date Provider Diagnosis [facility] [address] [place] [address] May, Tricia Coleman Palpable mass of breast N63.0 ; Abnormal mammogram with microcalcification R92.0 ; Breast mass, right N63.10 ; Palpable lymph node R59.9 ; At high risk for breast cancer Z91.89 ; Family history of breast cancer Z80.3 ; Smoker F17.200 and Weight loss R63.4 IMMUNIZATIONS No Information SOCIAL HISTORY Sex Assigned At : Social History Observation Description Sex Assigned At Unknown REASON FOR REFERRAL No Information VITAL SIGNS No information MEDICATIONS Medication SIG (Take, Route, Frequency, Duration) Notes Start Da te End Date Status Zoloft 25 MG 1 tablet Orally Once a day Active PROCEDURES No Information RESULTS No Results REASON FOR VISIT BIRADS 5 Goals Section No Information Health Concerns No Information MEDICAL EQUIPMENT No Information MENTAL STATUS No Information FUNCTIONAL STATUS No Information ASSESSMENTS Encounter Date Diagnosis Assessment Notes Treatment Notes Treatm ent Clinical Notes May, Palpable mass of breast (ICD-10 - N63.0) RIGHT BREAST PALPABLE MASS 8:00-8:30 I reviewed the images with Ms. Chaparro and explained that there was right breast focal asymmetry noted with ossifications on her diagnostic mammogram. BI-RADS 5 category was assigned to this study which is highly suspicious for malignancy. I also explained to the patient that on her diagnostic focused ultrasound of the right breast there is hypoechoic lesion seen at the area of the palpable mass at 8:30 4.5 cm from the nipple. BI-RADS 4 category was assigned to this study. I spoke with the radiologist from [facility] who thinks that mammographic and sonographic findings represent the same lesion. Ultrasound- guided biopsy with clip placement and post biopsy specimen radiography was advised to assure calcifications are present in the specimen. I informed patient that if they are not and if they sonographic lesion does not correspond with mammographic lesion she will need additional biopsy with stereotactic guidance. At this time, we will start with ultrasound-guided biopsy. I briefly described the procedure to the patient. I explained that after biopsy a marking clip will be placed at the site of biopsy to allow easier localization of the lesion in case biopsy comes back concerning. After the biopsy she will have a gentle mammogram to confirm the position of the clip. I briefly describe risk and possible complications of the procedure including bleeding, infection, and injury to surrounding structures (nipple, skin, muscle, lung). I asked patient not to take any blood thinning medication including aspirin, ibuprofen and or Excedrin 5 days before her biopsy. We'll schedule her for right breast ultrasound-guided biopsy of the lesion located at 8:30 4.5 cm from the nipple, with clip placement and postbiopsy mammogram. Depending on the results of ultrasound of the 9:00 lesion and axilla additional biopsies may be done of those lesions at the same setting. All questions were answered. Patient agrees with the plan. May, Abnormal mammogram with microcalcification (ICD- 10 - R92.0) Right breast mammogram with calcifications. BIRADS 5 - ana suspuicious for breast cancer. see above May, Breast mass, right (ICD-10 - N63.10) RIGHT BREAST MASS 9:00-9:30 I informed patient that on clinical exam there was a second smaller hypoechoic lesion noted on ultrasound of the right breast at 9:00-9:30 7 cm from the nipple. This is posteriorly right at the muscle border. I ordered focused ultrasound of the 9:00-9:30 7 cm from the nipple area to further evaluate this lesion. This will be done prior to scheduled biopsy of 8:00-8:30 lesion. I will call patient with the results. May, Palpable lymph node (ICD-10 - R59.9) I informed the patient that on clinical exam there was right axillary palpable lymph node with possibly thickened cortex. I ordered focused ultrasound of the right axilla to further evaluate this lymph node. This will be done prior to scheduled biopsy of 8:00 breast lesion. I will call patient with the results. May, At high risk for breast cancer (ICD-10 - Z91.89) HIGH RISK SCREENING FOR BREAST CANCER Patient participated in our cancer screening program, cancerIQ, and she was identified as a person at increased risk for development of breast cancer base on her family history. I have discussed with patient that annual mammogram and annual MRI are recommended for screening patients at increased risk of breast cancer. This screening is recommended to be started at the age of 30. The imaging studies are usually by 6 months from each other. I also explained to the patient that clinical breast exam should be done at least twice a year. One exam can be done with me and the other exam can be done with any other clinician as long as two good exams are done per year. Alternatively, I can do both exams if patient wishes for that. Patient had recently diagnostic mammogram and is currently being evaluated for right breast palpable mass. Follow-up mammogram will be ordered for and April 2021. Her screening MRI of the breast will be ordered alter depending on the current evaluation of her BIRADS5 mammogram. Patient will also follow up with me in 6 months for clinical breast exam and review of images. All questions were answered and patient agrees with the plan. May, Family history of breast cancer (ICD-10 - Z80.3) Patient does have family history of breast cancer diagnosed in her mother in her 60s/70 however she is not eligible for genetic testing at this time cancerIQ algorithm. May, Smoker (ICD-10 - F17.200) CURRENT SMOKER Smoking cessation was advised May, Weight loss (ICD-10 - R63.4) Pt reports 20 Lb weight loss in last 2 months. She is following with her primary team. Wt loss was thought to be due to stress and Rx of Zolof was suggested. 17 May, 2020 Other Time spent face to face with the patient with over 50 % of time spent counseling the patient : 45 min PLAN OF TREATMENT Treatment Notes Assessment Notes Clinical Notes Palpable mass of breast RIGHT BREAST PALPABLE MASS 8 :00-8:30I reviewed the images with Ms. Chaparro and explained that there was right breast focal asymmetry noted with ossifications on her diagnostic mammogram. BI-RADS 5 pedro rizzo was assigned to this study which is highly suspicious for malignancy. I also explained to the patient that on her diagnostic focused ultrasound of the right breast there is hypoechoic lesion seen at the area of the palpable mass at 8:30 4.5 cm from the nipple. BI-RADS 4 category was assigned to this study. I spoke with the radiologist from [facility] who thinks that mammographic and sonographic findings represent the same lesion. Ultrasound- guided biopsy with clip placement and post biopsy specimen radiography was advised to assure calcifications are present in the specimen. I informed patient that if they are not and if they sonographic lesion does not correspond with mammographic lesion she will need additional biopsy with stereotactic guidance. At this time, we will start with ultrasound-guided biopsy.I briefly described the procedure to the patient. I explained that after biopsy a marking clip will be placed at the site of biopsy to allow easier localization of the lesion in case biopsy comes back concerning. After the biopsy she will have a gentle mammogram to confirm the position of the clip.I briefly describe risk and possible complications of the procedure including bleeding, infection, and injury to surrounding structures (nipple, skin, muscle, lung).I asked patient not to take any blood thinning medication including aspirin, ibuprofen and or Excedrin 5 days before her biopsy.We'll schedule her for right breast ultrasound-guided biopsy of the lesion located at 8:30 4.5 cm from the nipple, with clip placement and postbiopsy mammogram. Depending on the results of ultrasound of the 9:00 lesion and axilla additional biopsies may be done of those lesions at the same setting.All questions were answered. Patient agrees with the plan. Abnormal mammogram with microcalcification Right breas t mammogram with calcifications. BIRADS 5 - ana suspuicious for breast cancer. see above Breast mass, right RIGHT BREAST MASS 9:00-9:30I informed patient that on clinical exam there was a second smaller hypoechoic lesion noted on ultrasound of the right breast at 9:00-9:30 7 cm from the nipple. This is posteriorly right at the muscle border. I ordered focused ultrasound of the 9:00-9:30 7 cm from the nipple area to further evaluate this lesion. This will be done prior to scheduled biopsy of 8:00-8:30 lesion. I will call patient with the results. Palpable lymph node I informed the patient that on clinical exam there was rightaxillary palpable lymph node with possibly thickened cortex. I ordered focusedultrasound of the right axilla to further evaluate this lymph node. This willbe done prior to scheduled biopsy of 8:00 breast lesion. I will call patientwith the results. At high risk for breast cancer HIGH RISK SCREENING FOR BREAST CANCERPatient participated in our cancer screening program, cancerIQ, and she was identified as a person at increased risk for development of breast cancer base on her fam mikey history.I have discussed with patient that annual mammogram and annual MRI are recommended for screening patients at increased risk of breast cancer. This screening is recommended to be started at the age of 30. The imaging studies are usually by 6 months from each other.I also explained to the patient that clinical breast exam should be done at least twice a year. One exam can be done with me and the other exam can be done with any other clinician as long as two good exams are done per year. Alternatively, I can do both exams if patient wishes for that.Patient had recently diagnostic mammogram and is currently being evaluated for right breast palpable mass. Follow-up mammogram will be ordered for and of April 2021. Her screening MRI of the breast will be ordered alter depending on the current evaluation of her BIRADS5 mammogram.Patient will also follow up with me in 6 months for clinical breast exam and review of images.All questions were answered and patient agrees with the plan. Family history of breast cancer Patient does have fami ly history of breast cancer diagnosedin her mother in her 60s/70 however she is not eligible for genetic testing atthis time cancerIQ algorithm. Smoker CURRENT SMOKERSmoking cessation was advi sed Weight loss Pt reports 20 Lb weight loss in last 2 months. She is following with herprimary team. Wt loss was thought to be due to stress and Rx of Zolof wassuggested. Insurance Providers Payer Name Payer Address Payer Phone Insured Name Patient Relati onship to Insured Coverage Start Date Coverage End Date [facility] COMMUNITY PLAN [facility] [address] [facility] [id number] BRIDGER CHAPARRO self
--- OUTSIDE RECORDS SUMMARY | 2020-10-05 06:40 | CCD ---
Author Author [facility] Organization [facility] Address Unknown Phone Unavailable Care Team Providers Care High School Sports Coach Name Role Phone Tricia Coleman Unavailable PROBLEMS Type Condition ICD9-CM Code EUG95-OC Code Onset Dates Condition S tatus SNOMED Code Notes Problem Smoker F17.200 Active 05210738 Problem Malignant neoplasm of unspecified site of right female breast C50.911 Active 989045420 Problem Malignant neoplasm of right female breast, unspecified estrogen receptor status, unspecified site of breast C50.911 Active 3 14935105 ALLERGIES Allergen (clinical drug ingredient) Drug/Non Drug Allergy do cumented on EMR Reaction Allergy Type Onset Date Status Sulfacet-R Hives Drug Allergy Active ENCOUNTERS from 1960 to 2020-07-30 Encounter Location Date Provider Diagnosis [facility] [address] [place] [address] Jul, Tricia Coleman Malignant neoplasm of unspecified site o f right female breast C50.911 ; Estrogen receptor positive status [ER+] Z17.0 ; Hilar adenopathy R59.0 and Lung nodule, multiple R91.8 IMMUNIZATIONS No Information SOCIAL HISTORY Sex Assigned At : Social History Observation Description Sex Assigned At Unknown REASON FOR REFERRAL No Information VITAL SIGNS No information MEDICATIONS Medication SIG (Take, Route, Frequency, Duration) Start Date En d Date Status Zoloft 25 MG 1 tablet Orally Once a day A ctive PROCEDURES No Information RESULTS No Results REASON FOR VISIT CT chest results Goals Section No Information Health Concerns No Information MEDICAL EQUIPMENT No Information MENTAL STATUS No Information FUNCTIONAL STATUS No Information ASSESSMENTS Encounter Date Diagnosis Notes Jul, Estrogen receptor positive status [ER+] (ICD-10 - Z17.0) Jul, Malignant neoplasm of unspec ified site of right female breast (ICD- 10 - C50.911) Jul, Lung nodule, multiple (ICD-10 - R91.8) Jul, Hilar adenopathy (ICD-10 - R59.0) PLAN OF TREATMENT Treatment Notes Test Name Order Date [facility] PET CT SCAN: SKULL TO MID-THIGH 2020-07-30 Insurance Providers Payer Name Payer Address Payer Phone Insured Name Patient Relati onship to Insured Coverage Start Date Coverage End Date [facility] COMMUNITY PLAN [facility] [address] [facility] [id number] BRIDGER CHAPARRO self
--- OUTSIDE RECORDS SUMMARY | 2020-10-05 06:40 | CCD ---
Author Author [facility] Organization [facility] Address Unknown Phone Unavailable Care Team Providers Care Document Management Analyst Name Role Phone Tricia Coleman Unavailable PROBLEMS Type Condition ICD9-CM Code [id number] Code Onset Dates Condition S tatus SNOMED Code Notes Problem Smoker F17.200 Active 20879766 Problem Malignant neoplasm of unspecified site of right female breast C50.911 Active 191583738 Problem Malignant neoplasm of right female breast, unspecified estrogen receptor status, unspecified site of breast C50.911 Active 3 [id number] ALLERGIES Allergen (clinical drug ingredient) Drug/Non Drug Allergy do cumented on EMR Reaction Allergy Type Onset Date Status Sulfacet-R Hives Drug Allergy Active ENCOUNTERS from 1962 to 2020-08-27 Encounter Location Date Provider Diagnosis [facility] [address] [place] [address] 13 Jul, 2020 Tricia Coleman IMMUNIZATIONS No Information SOCIAL HISTORY Sex Assigned At : Social History Observation Description Sex Assigned At Unknown REASON FOR REFERRAL No Information VITAL SIGNS No information MEDICATIONS Medication SIG (Take, Route, Frequency, Duration) Notes Start Da te End Date Status Zoloft 25 MG 1 tablet Orally Once a day Active PROCEDURES No Information RESULTS No Results REASON FOR VISIT No Information Goals Section No Information Health Concerns No Information MEDICAL EQUIPMENT No Information MENTAL STATUS No Information FUNCTIONAL STATUS No Information ASSESSMENTS No Information PLAN OF TREATMENT No Information Insurance Providers Payer Name Payer Address Payer Phone Insured Name Patient Relati onship to Insured Coverage Start Date Coverage End Date [facility] COMMUNITY PLAN [address] [phone] BRIDGER CHAPARRO self
--- OUTSIDE RECORDS SUMMARY | 2020-10-05 06:40 | CCD ---
Author Author [facility] Organization [facility] Address Unknown Phone Unavailable Care Team Providers Care Cafe Worker Name Role Phone Tricia Coleman Unavailable PROBLEMS Type Condition ICD9-CM Code DTQ66-TD Code Onset Dates Condition S tatus SNOMED Code Notes Problem Smoker F17.200 Active 74410360 Problem Malignant neoplasm of unspecified site of right female breast C50.911 Active 971297544 Problem Malignant neoplasm of right female breast, unspecified estrogen receptor status, unspecified site of breast C50.911 Active 3 [id number] ALLERGIES Allergen (clinical drug ingredient) Drug/Non Drug Allergy do cumented on EMR Reaction Allergy Type Onset Date Status Sulfacet-R Hives Drug Allergy Active ENCOUNTERS from 1962 to 2020-08-27 Encounter Location Date Provider Diagnosis [facility] Breast Care [address] [place] [address] May, Tricia Coleman IMMUNIZATIONS No Information SOCIAL HISTORY Sex Assigned At : Social History Observation Description Sex Assigned At Unknown REASON FOR REFERRAL No Information VITAL SIGNS No information MEDICATIONS Medication SIG (Take, Route, Frequency, Duration) Notes Start Da te End Date Status Zoloft 25 MG 1 tablet Orally Once a day Active PROCEDURES No Information RESULTS No Results REASON FOR VISIT R breast US results Goals Section No Information Health Concerns No Information MEDICAL EQUIPMENT No Information MENTAL STATUS No Information FUNCTIONAL STATUS No Information ASSESSMENTS No Information PLAN OF TREATMENT No Information Insurance Providers Payer Name Payer Address Payer Phone Insured Name Patient Relati onship to Insured Coverage Start Date Coverage End Date [facility] COMMUNITY PLAN [address] [phone] CHAPO CHAPARROIA self
--- OUTSIDE RECORDS SUMMARY | 2020-10-05 06:40 | CCD ---
Author Author [facility] Organization [facility] Address Unknown Phone Unavailable Care Team Providers Care Dust Operator Name Role Phone Tricia Coleman Unavailable PROBLEMS Type Condition ICD9-CM Code MAN65-NP Code Onset Dates Condition S tatus SNOMED Code Notes Problem Smoker F17.200 Active 81757301 Problem Malignant neoplasm of unspecified site of right female breast C50.911 Active 303792102 Problem Malignant neoplasm of right female breast, unspecified estrogen receptor status, unspecified site of breast C50.911 Active 3 [id number] ALLERGIES Allergen (clinical drug ingredient) Drug/Non Drug Allergy do cumented on EMR Reaction Allergy Type Onset Date Status Sulfacet-R Hives Drug Allergy Active ENCOUNTERS from 1962 to 2020-08-27 Encounter Location Date Provider Diagnosis [facility] [address] [place] [address] 04 Aug, 2020 Tricia Coleman IMMUNIZATIONS No Information SOCIAL [...] No Results REASON FOR VISIT PET scan denial and genetic testing discussion Goals Section No Information Health Concerns No Information MEDICAL EQUIPMENT No Information MENTAL STATUS No Information FUNCTIONAL STATUS No Information ASSESSMENTS No Information PLAN OF TREATMENT No Information Insurance Providers Payer Name Payer Address Payer Phone Insured Name Patient Relati onship to Insured Coverage Start Date Coverage End Date [facility] COMM[facility] [id number] [facility] [phone] BRIDGER CHAPARRO self
--- OUTSIDE RECORDS SUMMARY | 2020-10-05 06:40 | CCD ---
Author Author [facility] Organization [facility] Address Unknown Phone Unavailable Care Team Providers Care Windows Admin Name Role Phone Tricia Coleman Unavailable PROBLEMS Type Condition ICD9-CM Code RUJ72-PO Code Onset Dates Condition S tatus SNOMED Code Notes Problem Smoker F17.200 Active 30461061 Problem Malignant neoplasm of unspecified site of right female breast C50.911 Active 302490495 Problem Malignant neoplasm of right female breast, unspecified estrogen receptor status, unspecified site of breast C50.911 Active 3 [id number] ALLERGIES Allergen (clinical drug ingredient) Drug/Non Drug Allergy do cumented on EMR Reaction Allergy Type Onset Date Status Sulfacet-R Hives Drug Allergy Active ENCOUNTERS from 1962 to 2020-09-27 Encounter Location Date Provider Diagnosis [facility] [address] [place] [id number] Sep, Tricia Coleman IMMUNIZATIONS No Information SOCIAL HISTORY Sex Assigned At : Social History Observation Description Sex Assigned At Unknown REASON FOR REFERRAL No Information VITAL SIGNS No information MEDICATIONS Medication SIG (Take, Route, Frequency, Duration) Notes Start Da te End Date Status Lidocaine-Prilocaine 2.5-2.5 % apply entire tube to ri ght nipple and surrounding tissue 2 hours prior to coming for surgery. cover with plastic Externally once for 1 day Sep, Active Zoloft 25 MG 1 tablet Orally Once a day Active PROCEDURES No Information RESULTS No Results REASON FOR VISIT AUTHORIZATION Goals Section No Information Health Concerns No Information MEDICAL EQUIPMENT No Information MENTAL STATUS No Information FUNCTIONAL STATUS No Information ASSESSMENTS No Information PLAN OF TREATMENT Medication Medication Name Sig Start Date Stop Date Lidocaine-Prilocaine 2.5-2.5 % apply entire tube to ri ght nipple and surrounding tissue 2 hours prior to coming for surgery. cover with plastic Externally once for 1 day Sep, Next Appt Details Provider Name:Triciamaria luisa Coleman, 07-10-18 11:00:00 AM, [address] [place] [address], [phone], Provider Name:Tricia Coleman, 07-10-24 01:30:00 PM, [address] [place] [address], [id number], Provider Name:Tricia Coleman, 07-11-14 01:30:00 PM, [address] [place] [address], [id number], Insurance Providers Payer Name Payer Address Payer Phone Insured Name Patient Relati onship to Insured Coverage Start Date Coverage End Date [facility]AN [facility] [address] [facility] [phone] BRIDGER CAHPARRO self
--- OUTSIDE RECORDS SUMMARY | 2020-10-05 06:40 | CCD ---
Author Author [facility] Organization [facility] Address Unknown Phone Unavailable Care Team Providers Care [place] Police Name Role Phone Tricia Coleman Unavailable PROBLEMS Type Condition ICD9-CM Code THX53-EC Code Onset Dates Condition S tatus SNOMED Code Notes Problem Smoker F17.200 Active 52780355 Problem Malignant neoplasm of unspecified site of right female breast C50.911 Active 971728924 Problem Malignant neoplasm of right female breast, unspecified estrogen receptor status, unspecified site of breast C50.911 Active 3 [id number] ALLERGIES Allergen (clinical drug ingredient) Drug/Non Drug Allergy do cumented on EMR Reaction Allergy Type Onset Date Status Sulfacet-R Hives Drug Allergy Active ENCOUNTERS from 1960 to 2020-08-26 Encounter Location Date Provider Diagnosis [facility] [address] [place] [address] 08 Aug, 2020 Tricia Coleman IMMUNIZATIONS No Information [...] Insured Coverage Start Date Coverage End Date [facility] COMMUN[facility] PLAN [address] [phone] BRIDGER CHAPARRO self
--- OUTSIDE RECORDS SUMMARY | 2020-10-05 06:40 | CCD | Continuity of Care Document ---
Author Author [facility] Address [address] [place] [address] Phone Support Name Relationship Address Phone Yee Cook PRS [address] [place] [address] Carolann Ernst PRS [address] [place] [address] Doctor Provided, Family No PRS Unknown Unava ilable Danielle Robbins PRS [address] [place] [address] Brant Jay PRS [address] [place] [address] Allergies, Adverse Reactions, Alerts Allergen Type Severity Reaction Last Updated Verified Status Sulfa (Sulfonamide Antibiotics) Allergy June 11, 2020 8:34am Yes Active Medications Medication Status Dose Units Route Directions Qty Days Start Date End Date Instructions Sertraline Discontinued 25 MG PO daily June 02, 2020 12:42pm June 04, 2020 10:29am Alprazolam Discontinued 0.25 MG PO Three times a day July 01, 2020 2:47pm August 26, 2020 2:25pm Sertraline Active 25 MG PO daily July 29, 2020 4:07pm Sumatriptan Succinate (Imitrex) 25 mg tablet Active 25 MG PO . COMPLEX July 29, 2020 4:08pm take 1 tab at onset of heada ruben; if no relief may repeat 1 tab in 2hr; max = 4 tabs/day (24hr) PO 25 mg Alprazolam Active 0.25 MG PO Three times a day August 26, 2020 2:25pm Cyclobenzaprine Discontinued 1 TAB PO Once Per Day January 05, 2018 5:30pm June 13, 2018 10:40am Hydrocodone-Acetaminophen Discontinued 1 TAB PO Four Times a Day January 05, 2018 5:3 0pm June 13, 2018 10:40am Pseudoephedrine Hcl (Sudafed) 30 MG tablet Discontinued 1 TAB PO E very 24 hours January 05, 2018 5:30pm June 13, 2018 10:40am Methylprednisolone (Medrol (Joel)) 4 mg tablets,dose pa ck Discontinued 0 PO .COMPLEX June 11, 2020 9:03am August 26, 2020 2:06pm orally per package directions Acetaminophen-Codeine Discontinued 1 TAB PO Three times a day June 11 0 9:03am August 26, 2020 2:07pm Tramadol Discontinued 1 TAB PO Every 6 hours 20 June 13, 2018 10:57am June 19, 2018 10:26am Ibuprofen Discontinued 8 00 MG PO Three times a day 60 July 09, 2018 4:28pm January 15, 2019 8:02am WITH FOOD Ibuprofen Discontinued 8 00 MG PO Three times a day 60 July 09, 2018 4:28pm June 02, 2020 12:10pm WITH FO OD Sertraline Discontinued 25 MG PO daily 30 June 04, 2020 10:29am July 29, 2020 4:10pm Problems Active Problems Medical Problem Onset Date Status Rib pain on left side Active Fatigue Active Breast cancer in female Active Anxiety Active Depression Active Calcific supraspinatus tendinitis Active Easy bruising Active Breast mass, right Act mitzi Procedures Procedure Date Performed Status US Breast - Limited Unilat May 122019 10:11am completed 3D DIG MAMMO DIAG ELVIS May 12 020 9:33am completed Relevant Diagnostic Tests and/or Laboratory Data Laboratory Results Test Date/Time Result Interpretation Reference Range Result Comment Performing Site White Blood Count June 11 8:55am 6.7 10e3/uL 4.45-10.71 [facility], [address] [place] [address] 13430 Red Blood Count June 11, 2020 8:55a m 4.19 10e6/uL 4.20-5.40 [facility], [address] [place] [address] 59698 Hemoglobin June 11, 2020 8:55am 12.5 g/dL 10.7-15.4 [facility], [address] [place] [address] 04082 Hematocrit June 11, 2020 8:55am 39.9 % 37-47 [facility], [address] [place] [address] 85541 Mean Corpuscular Volume June 112019 8:55am 95.2 fl 80-96 [facility], [address] [place] [address] 71623 Mean Corpuscular Hemoglobin Mayemb r 2019 8:55am 29.8 pg 27-31 [facility], [address] [place] [address] Mean Corpuscular Hemoglobin Concent June 11, 2020 8:55am 31.3 g/dl 33-37 [facility], [address] [place] [address] Red Cell Distribution Width r 2019 8:55am 13 % 11-15 [facility], [address] [place], [place] [id number] Platelet Count June 11, 2020 8:55am 230 10e3/ul 130-472 [facility], [address] [place], [place] [address] Mean Platelet Volume June 11, 2020 8:55am 10.0 fl 9.1-13.1 [facility], [address] [place] [address] 69230 Neutrophils (%) (Auto) May 8:55am 63.2 % 41-77 [facility], [address] [place] [address] 70274 Absolute Neutrophil June 11, 2020 8:55am 4.2 # 1.7-7.6 [facility], [address] [place] [address] 64318 Lymphocytes (%) (Auto) May 8:55am 23.8 % 14-46 [facility], [address] [place] [address] 48264 Lymphocytes # (Auto) June 11, 2020 8:55am 1.6 # 0.6-4.6 [facility], [address] [place] [address] 99875 Monocytes (%) (Auto) June 11, 2020 8:55am 8.9 % 4-12 [facility], [address] [place] [address] 10586 Monocytes # June 11, 2020 8:55am 0.6 # 0.2-1.2 [facility], [address] [place] [address] 16077 Eosinophils (%) (Auto) May 8:55am 2.9 % 0-7 [facility], [address] [place] [address] 87953 Absolute Eosinophils (CBC) June 11, 2020 8:55am 0.2 # 0.0-0.5 [facility], [address] [place] [address] 58505 Basophils (%) (Auto) June 11, 2020 8:55am 0.9 % 0.4-1.3 [facility], [address] [place] [address] Absolute Basophils (CBC) May 192019 8:55am 0.1 # 0.0-0.2 [facility], [address] [place] [address] 26353 Immature Granulocyte % (Auto) Sept2019 8:55am 0.3 % 0-2 [facility], [address] [place] [address] 32536 Absolute Immature Granulocyte (auto June 11, 2020 8:55am 0.0 # 0-0.1 [facility], [address] [place], [place] [address] Add Manual Differential June 112019 8:55am No [facility], [address] [place], [place] [address] Prothrombin Time June 11 0 8:55am 10.2 SECONDS 9.6-12.3 [facility], [address] [place], [place] [address] INR International Normalized Ratio S eptember 2019 8:55am 1.0 0.9-1.1 THE INR IS OPERATIONALLY DEFINED FOR SWETA SH PLASMA FROMPATIENTS STABILIZED ON ORAL ANTICOAGULANTS. ROUTINE ANTICOAGULANT THERAPY 2.0-3.0RECURRENT SYSTEMIC EMBOLISM/HEART VALVE REPLACEMENT 2.5-3.5 [facility], [address] [place] [address] 88032 Blood Urea Nitrogen June 11, 2020 8:55am 12 mg/dL 9-23 [facility], [address] [place] [address] 09389 Sodium Level June 11, 2020 8:55am 142 mmol/L 132-146 [facility], [address] [place] [address] 35994 Potassium Level June 11, 2020 8:55a m 4.4 mmol/L 3.5-5.5 [facility], [address] [place] [address] 92893 Chloride Level June 11, 2020 8:55am 111 mmol/l 99-109 [facility], [address] [place] [address] 69559 Carbon Dioxide Level June 11, 2020 8:55am 29 mmol/l 20-31 [facility], [address] [place] [address] 18498 Anion Gap June 11, 2020 8:55am 6 mmol/l 8-16 [facility], [address] [place] [address] 67357 Glucose Level June 11, 2020 8:55am 92 mg/dL 74-106 [facility], [address] [place] [address] 83492 Creatinine June 11, 2020 8:55am 0.6 mg/dL 0.5-1.1 [facility], [address] [place] [address] 03041 Glomerular Filtration Rate Calc Sept emb2019 8:55am Greater than 60 ml/min ABOVE 60 [facility], [address] [place] [address] 76491 Alanine Aminotransferase (ALT/SGPT) June 11, 2020 8:55am 33 U/L 10-49 [facility], [address] [place] [address] 53816 Aspartate Amino Transf (AST/SGOT) Se pt2019 8:55am 16 U/L 0-33 [facility], [address] [place] [address] 36211 Alkaline Phosphatase June 11, 2020 8:55am 93 U/L 45-129 [facility], [address] [place] [address] 60892 Calcium Level June 11, 2020 8:55am 8.8 mg/dL 8.5-10.1 [facility], [address] [place] [address] 79264 Total Bilirubin June 11, 2020 8:55a m 0.4 mg/dL 0.3-1.2 [facility], [address] [place] [address] 20771 Albumin June 11, 2020 8:55am 3.5 g/dL 3.2-4.8 [facility], [address] [place] [address] 99645 Serum Total Protein June 11, 2020 8:55am 7.2 g/dL 5.7-8.2 [facility], [address] [place] [address] 46460 Thyroid Stimulating Hormone (TSH) Se pt2019 8:55am 2.01 uIU/mL 0.35-5.50 [facility], [address] [place] [address] 01544 Diagnostic Imaging Reports Report Dictated Date/Time Dictated By Status Radiology Report May 12, 2020 5:28pm Nj Palacios MD completed [facility] [address] [place] [address] [phone] NAME SEX PT STATUS ACCOUNT NUMBER BRIDGER CHAPARRO REG REF [id number] ORDERING PHYSICIAN LOCATION MEDICAL RECORD NO. 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 Multiple images of the right breast at the 8:00 location were obtained, encompassing the area of clinical concern. FINDINGS: A cyst with low-level echoes measuring approximately 6 x 4 x 5 mm is seen. Otherwise, there is normal fibroglandular tissue. IMPRESSION: Complex cyst in the 8:00 position in the region of palpable abnormality. OVERALL FINAL ASSESSMENT OF FINDINGS BI-RADS 4 - Suspicious Abnormality Reported By Nj Palacios MD on 05/12/201727 Signed By Nj Palacios MD on 05/12/201730 Date Time CC: Carolann Ernst; Nj Palacios MD Techn: BUSMI Trans Dt/Tm: Trans by: DT Prt Dt/Tm: : Total DLP = 0.00 mGy-cm : Total Radiation Dose = 0.0000 mSv Lifetime Dose: 0 mSv Radiology Report May 12, 2020 5:32pm Nj Palacios MD completed [facility] [address] [place] [address] [phone] NAME SEX PT STATUS ACCOUNT NUMBER BRIDGER CHAP[employer]O REG REF [id number] ORDERING PHYSICIAN LOCATION MEDICAL RECORD NO. Yee Cook MAMMO [id number] ATTENDING PHYSICIAN DATE OF DATE OF EXAM/TIME Carolann Ernst ANTHONY 1960 05[birth year] / 1033 TYPE / EXAM 3D DIG MAMMO DIAG ELVIS REASON FOR EXAM right breast mass LAST CLINICAL BREAST EXAM: 05-10-2020 FIVE YEAR RISK: 2.6% LIFETIME RISK: 15.5% FAMILY HISTORY OF BREAST CARCINOMA: Mother COMPARISON: None 2D bilateral digital mammogram in the CC and MLO projections was performed with supplemental 3D tomosynthesis of both breasts. FINDINGS: Craniocaudad and oblique lateral views of the breasts were obtained. The breasts are heterogeneously dense, which may obscure small masses. In the 8 to 9:00 position of the posterior depth of the right breast, focal asymmetry is seen. It appears associated with a cluster of suspicious microcalcification. Biopsy advised. No other asymmetry, architectural distortion, or suspicious microcalcification is seen. IMPRESSION: Focal asymmetry seen in the outer aspect of the right breast associated with suspicious microcalcification. Biopsy advised. OVERALL FINAL ASSESSMENT OF FINDINGS BI-RADS 5 - Highly Suggestive of Malignancy OVERALL FINAL ASSESSMENT OF THE BREAST COMPOSITION This mammogram was read with the assistance of M-Vu, an FDA-approved computer- aided detection system for mammography. Reported By Nj Palacios MD on 05/12/201731 Signed By Nj Palacios MD on 05/12/201734 Date Time CC: Carolann Ernst; Nj Palacios MD Techn: CUMME Trans Dt/Tm: Trans by: DT Prt Dt/Tm: : Total DLP = 0.00 mGy-cm : Total Radiation Dose = 0.0000 mSv Lifetime Dose: 0 mSv Health Concerns Health Concerns may be documented in an alternate section. Advance Directives Advance Directive Response Recorded Date/Time Advanced Directive No Se ptember 2019 8:31am Does Patient have a DNR? No June 11, 2020 8:31am Healthcare Proxy No May 8:31am Living Will No December 5:18pm Chief Complaint and Reason for Visit Chief Complaint Lump/mass RT BREAST LUMP N63.10 Encounter to Establish Care Annual Physical Anxiety Telemed Visit Reason for Visit Breast mass, right Depression Fatigue Breast cancer in female Depression Anxiety Depression Encounters Encounter Location(s) Ar rival/Admit Date Discharge/Depart Date Provider(s) [facility], [facility] 1:10pm May 07, 2020 1:48pm Yee arthur Registered Referred [facility] May 12, 2020 9:09am Yee Cook Departed Physician/Provider Office Visit [facility] June 02, 2020 11:59am June 02, 2020 12:51pm Danielle Robbins Departed Emergency [facility]Emergency Room ER June 11, 2020 8:25am June 11, 2020 9:15am null Departed Physician/Provider Office Visit [facility] July 01, 2020 1:23pm July 01, 2020 3:04pm Danielle Robbins Departed Physician/Provider Office Visit [facility] July 29, 2020 3:18pm July 29, 2020 4:21pm Danielle Robbins Departed Physician/Provider Office Visit [facility] August 26, 2020 12:31pm August 26, 2020 3:03pm Danielle Robbins Recent Diagnosis Onset Date Breast mass, right Depression Fatigue Breast cancer in female Depression Anxiety Depression Assessments Diagnosis Onset Date Res olution Status Breast mass, right acute Depression acute Fatigue acute Breast cancer in female acute Depression acute Anxiety acute Depression acute Family History Relationship Condition A ge at Onset Recorded Date/Time Not Specified Hyperlipidemia Unknown Not Specified Alzheimer's disease Unknown Functional Status No Functional Status information available Goals Goals may be documented in an alternate section. Immunizations No Immunization Information Available Mental Status No Mental Status Information Available Medical Equipment No Medical Equipment Information available Insurance Providers Guarantor BRIDGER CHAPARRO Address [address] [place] [address] Contact Info. Home Phone: Payer Policy Id Coverage Id Subscriber's Name Subscriber Id Effective Date Expiration Date [facility] [id number] BRIDGER CHAPARRO [id number] Self Pay Self N/A [facility] MEDICAID [id number] BRIDGER CHAPARRO [id number] Plan of Treatment RTC 1 MONTH LABS: CBC, CMP, LIPIDS, TSH, COAG. RTC 1 MONTH START SERTRALINE 25 MG ONCE A DAY patient advised, I will order a diagnostic mammogram. She has been given an appo intment to establish with Danielle Robbins in May. We will call results to her. I will facilitate follow up as needed after we get results. Future Tests Future scheduled test information is unavailable Pending Tests Pending diagnostic test information is unavailable Future Visits Future appointment information is unavailable Referrals to Other Providers Reason for Referral Referral Start Date Provider Provider Tre ct Information Provider Address C50.261 - Malignant neoplasm of unspecified site of un specified female breast July 01, 2020 jeannette abdalla Future Procedures Future procedure information is unavailable Future Medications Future medication information is unavailable Patient Instructions Patient instructions are unavailable Social History Smoking Status Status Date of Observation Current every day smoker May 192019 9:38am Observation Status Observation Response Usman e of Response Smoking Status Current every day smoker June 11, 2020 8:38am Alcohol Use No June 11, 2020 8:38am Substance Use No 2019 8:38am Assigned Sex Female Vital Signs Vital Reading Result Ref erence Range Collection Date/Time Height 60.25 [in_i] May 07, 2020 2:10pm Weight 110.37 [lb_av] May 07, 2020 2:10pm Body Temperature 97.9 [degF] 97.6-99.5 May 07, 2020 2:10pm Heart Rate 59 /min 60-100 May 07, 2020 2:10pm Respiratory rate 18 /min -May 07, 2020 2:10pm Oxygen saturation by Pulse oximetry 97 % 95- 100 May 07, 2020 2:10pm BP Systolic 118 mm[Hg] May 07, 2020 2:10pm BP Diastolic 72 mm[Hg] May 07, 2020 2:10pm BMI (Body Mass Index) 21.4 kg/m2 May 07, 2020 2:10pm Height 60.25 [in_i] June 02, 2020 1:06pm Weight 110.05 [lb_av] June 02, 2020 1:06pm Heart Rate 88 /min 60-100 June 02, 2020 1:06pm Respiratory rate 18 /min -June 02, 2020 1:06pm Oxygen saturation by Pulse oximetry 98 % 95- 100 June 02, 2020 1:06pm BP Systolic 100 mm[Hg] June 02, 2020 1:06pm BP Diastolic 60 mm[Hg] June 02, 2020 1:06pm BMI (Body Mass Index) 21.3 kg/m2 June 02, 2020 1:06pm Height 60 [in_i] June 11, 2020 9:31am Weight 110.00 [lb_av] June 11, 2020 9:31am Body Temperature 97.3 [degF] 97.6-99.5 June 11, 2020 9:27am Heart Rate 54 /min 60-100 June 11, 2020 9:27am Respiratory rate 18 /min 12-June 11, 2020 9:27am Oxygen saturation by Pulse oximetry 98 % 95- 100 June 11, 2020 9:27am BP Systolic 116 mm[Hg] June 11, 2020 9:27am BP Diastolic 66 mm[Hg] June 11, 2020 9:27am Height 60 [in_i] July 01, 2020 2:34pm Weight 110.00 [lb_av] July 01, 2020 2:34pm Heart Rate 82 /min 60-100 July 01, 2020 2:34pm Respiratory rate 18 /min -July 01, 2020 2:34pm Oxygen saturation by Pulse oximetry 98 % 95- 100 July 01, 2020 2:34pm BP Systolic 132 mm[Hg] July 01, 2020 2:34pm BP Diastolic 80 mm[Hg] July 01, 2020 2:34pm BMI (Body Mass Index) 21.4 kg/m2 July 01, 2020 2:34pm Height 60 [in_i] July 29, 2020 3:29pm Weight 115.50 [lb_av] July 29, 2020 3:29pm Heart Rate 59 /min 60-100 July 29, 2020 3:29pm Respiratory rate 18 /min -July 29, 2020 3:29pm Oxygen saturation by Pulse oximetry 98 % 95- 100 July 29, 2020 3:29pm BP Systolic 108 mm[Hg] July 29, 2020 3:29pm BP Diastolic 54 mm[Hg] July 29, 2020 3:29pm BMI (Body Mass Index) 22.5 kg/m2 July 29, 2020 3:29pm
--- OUTSIDE RECORDS SUMMARY | 2020-10-05 06:40 | CCD | Continuity of Care Document ---
Author Author [facility] Organization [facility] Address [address] [place] [address] Phone Support Name Relationship Address Phone Yee Cook PRS [address] [place] [address] Carolann Ernst PRS [address] [place] [address] Doctor Provided, Family No PRS Unknown Unava ilable Danielle Robbins PRS [address] [place] [address] Brant Jay PRS [address] [place] [address] Olivier Santamaria PRS [address] [place] [address] Allergies, Adverse Reactions, Alerts Allergen Type Severity Reaction Last Updated Verified Status Sulfa (Sulfonamide Antibiotics) Allergy September 29, 2020 9:58am Yes Active Medications Medication Status Dose Units [...] Discontinued 1 TAB PO Every 6 hours 03 02June 13, 2018 10:57am June 19, 2018 10:26am Ibuprofen Discontinued 8 00 MG PO Three times a day 60 July 09, 2018 4:28pm January 15, 2019 8:02am WITH FOOD Ibuprofen Discontinued 8 00 MG PO Three times a day 60 July 09, 2018 4:28pm June 02, 2020 12:10pm WITH FO OD Sertraline Discontinued 25 MG PO daily June 04, 2020 10:29am July 29, 2020 4:10pm Problems Active Problems Medical Problem Onset Date Status Rib pain on left side Active Fatigue Active Breast cancer in female Active Anxiety Active Depression Active Calcific supraspinatus tendinitis Active Easy bruising Active Preop testing Active Breast mass, right Act mitzi Procedures Procedure Date Performed Status Xray Chest 2 view PA/LAT September 10:16am completed US Breast - Limited Unilat May 122019 10:11am completed 3D DIG MAMMO DIAG ELVIS May 12 9:33am completed Relevant Diagnostic Tests and/or Laboratory Data Laboratory Results Test Date/Time Result Interpretation Reference Range Result Comment Performing Site White Blood Count September 28, 2020 10:05am 6.8 10e3/uL 4.45-10.71 [facility], [address] [place] [address] 86979 White Blood Count June 11 8:55am 6.7 10e3/uL 4.45-10.71 [facility], [address] [place] [address] 82211 Red Blood Count September 28, 2020 10:05am 3.89 10e6/uL 4.20-5.40 [facility], [address] [place] [address] 24971 Red Blood Count June 11, 2020 8:55a m 4.19 10e6/uL 4.20-5.40 [facility], [address] [place] [address] 42033 Hemoglobin September 28, 2020 10:05am 11.8 g/dL 10.7-15.4 [facility], [address] [place] [address] 12555 Hemoglobin June 11, 2020 8:55am 12.5 g/dL 10.7-15.4 [facility], [address] [place] [address] 23043 Hematocrit September 28, 2020 10:05am 36.5 % 37-47 [facility], [address] [place] [address] 84043 Hematocrit June 11, 2020 8:55am 39.9 % 37-47 [facility], [address] [place] [address] 43235 Mean Corpuscular Volume September 10:05am 93.8 fl 80-96 [facility], [address] [place] [address] 44511 Mean Corpuscular Volume June 112019 8:55am 95.2 fl 80-96 [facility], [address] [place] [address] 25052 Mean Corpuscular Hemoglobin September 28, 2020 10:05am 30.3 pg 27-31 [facility], [address] [place] [address] 80139 Mean Corpuscular Hemoglobin Septembe r 2019 8:55am 29.8 pg 27-31 [facility], [address] [place] [address] 07115 Mean Corpuscular Hemoglobin Concent September 28, 2020 10:05am 32.3 g/dl 33-37 [facility], [address] [place] [address] 23956 Mean Corpuscular Hemoglobin Concent June 11, 2020 8:55am 31.3 g/dl 33-37 [facility], [address] [place] [address] 51499 Red Cell Distribution Width September 28, 2020 10:05am 12 % 11-15 [facility], [address] [place] [address] Red Cell Distribution Width Septembe r 2019 8:55am 13 % 11-15 [facility], [address] [place] [address] 06268 Platelet Count September 28, 2020 10:05am 228 10e3/ul 130-472 [facility], [address] [place] [address] 49728 Platelet Count June 11, 2020 8:55am 230 10e3/ul 130-472 [facility], [address] [place] [address] 93279 Mean Platelet Volume September 28 10:05am 10.4 fl 9.1-13.1 [facility], [address] [place] [address] 16016 Mean Platelet Volume June 11, 2020 8:55am 10.0 fl 9.1-13.1 [facility], [address] [place] [address] 35107 Neutrophils (%) (Auto) September 28, 2020 10:05am 54.6 % [address] [facility], [address] [place] [address] 35841 Neutrophils (%) (Auto) May 8:55am 63.2 % [address] [facility], [address] [place] [address] 66110 Absolute Neutrophil September 28 10:05am 3.7 # 1.7-7.6 [facility], [address] [place] [address] 51507 Absolute Neutrophil June 11, 2020 8:55am 4.2 # 1.7-7.6 [facility], [address] [place] [address] 56783 Lymphocytes (%) (Auto) September 28, 2020 10:05am 29.9 % 14-46 [facility], [address] [place] [address] 17771 Lymphocytes (%) (Auto) May 8:55am 23.8 % 14-46 [facility], [address] [place] [address] 65888 Lymphocytes # (Auto) September 28 10:05am 2.0 # 0.6-4.6 [facility], [address] [place] [address] 56474 Lymphocytes # (Auto) June 11, 2020 8:55am 1.6 # 0.6-4.6 [facility], [address] [place] [address] 44486 Monocytes (%) (Auto) September 28 10:05am 9.9 % 4-12 [facility], [address] [place] [address] 36668 Monocytes (%) (Auto) June 11, 2020 8:55am 8.9 % 4-12 [facility], [address] [place] [address] 24274 Monocytes # September 28, 2020 10:05am 0.7 # 0.2-1.2 [facility], [address] [place] [address] 54376 Monocytes # June 11, 2020 8:55am 0.6 # 0.2-1.2 [facility], [address] [place] [address] 79450 Eosinophils (%) (Auto) September 28, 2020 10:05am 4.6 % 0-7 [facility], [address] [place] [address] 41461 Eosinophils (%) (Auto) May 8:55am 2.9 % 0-7 [facility], [address] [place] [address] 28676 Absolute Eosinophils (CBC) September 172020 10:05am 0.3 # 0.0-0.5 [facility], [address] [place] [address] 30294 Absolute Eosinophils (CBC) June 11, 2020 8:55am 0.2 # 0.0-0.5 [facility], [address] [place] [address] 11585 Basophils (%) (Auto) September 28 10:05am 0.9 % 0.4-1.3 [facility], [address] [place] [address] 22563 Basophils (%) (Auto) June 11, 2020 8:55am 0.9 % 0.4-1.3 [facility], [address] [place] [address] 92556 Absolute Basophils (CBC) September 10:05am 0.1 # 0.0-0.2 [facility], [address] [place] [address] 05031 Absolute Basophils (CBC) May 192019 8:55am 0.1 # 0.0-0.2 [facility], [address] [place] [address] 60670 Immature Granulocyte % (Auto) Januar 2020 10:05am 0.1 % 0-2 [facility], [address] [place] [address] 72157 Immature Granulocyte % (Auto) Septem 2019 8:55am 0.3 % 0-2 [facility], [address] [place] [address] 96527 Absolute Immature Granulocyte (auto September 28, 2020 10:05am 0.0 # 0-0.1 [facility], [address] [place] [address] Absolute Immature Granulocyte (auto June 11, 2020 8:55am 0.0 # 0-0.1 [facility], [address] [place] [address] Add Manual Differential September 10:05am No [facility], [address] [place] [address] Add Manual Differential June 112019 8:55am No [facility], [address] [place] [address] Prothrombin Time June 11 8:55am 10.2 SECONDS 9.6-12.3 [facility], [address] [place] [address] 99824 INR International Normalized Ratio S eptember 2019 8:55am 1.0 0.9-1.1 THE INR IS OPERATIONALLY DEFINED FOR SWETA SH PLASMA FROMPATIENTS STABILIZED ON ORAL ANTICOAGULANTS. ROUTINE ANTICOAGULANT THERAPY 2.0-3.0RECURRENT SYSTEMIC EMBOLISM/HEART VALVE REPLACEMENT 2.5-3.5 [facility], [address] [place] [address] Blood Urea Nitrogen September 28 10:05am 17 mg/dL 06-09 [facility], [address] [place] [address] Blood Urea Nitrogen June 11, 2020 8:55am 12 mg/dL 06-09 [facility], [address] [place] [address] Sodium Level September 28, 2020 10:05am 142 mmol/L 132-146 [facility], [address] [place] [address] Sodium Level June 11, 2020 8:55am 142 mmol/L 132-146 [facility], [address] [place] [address] Potassium Level September 28, 2020 10:05am 4.5 mmol/L 3.5-5.5 [facility], [address] [place] [address] Potassium Level June 11, 2020 8:55a m 4.4 mmol/L 3.5-5.5 [facility], [address] [place] [address] Chloride Level September 28, 2020 10:05am 109 mmol/l 99-109 [facility], [address] [place] [address] Chloride Level June 11, 2020 8:55am 111 mmol/l 99-109 [facility], [address] [place] [address] 18503 Carbon Dioxide Level September 28 10:05am 29 mmol/l -31 [facility], [address] [place] [address] 39439 Carbon Dioxide Level June 11, 2020 8:55am 29 mmol/l -31 [facility], [address] [place] [address] 25223 Anion Gap September 28, 2020 10:05am 9 mmol/l 8-16 [facility], [address] [place] [address] 03773 Anion Gap June 11, 2020 8:55am 6 mmol/l 8-16 [facility], [address] [place] [address] 76987 Glucose Level September 28, 2020 10:05am 95 mg/dL 74-106 [facility], [address] [place] [address] 13960 Glucose Level June 11, 2020 8:55am 92 mg/dL 74-106 [facility], [address] [place] [address] 31137 Creatinine September 28, 2020 10:05am 0.8 mg/dL 0.5-1.1 [facility], [address] [place] [address] 96449 Creatinine June 11, 2020 8:55am 0.6 mg/dL 0.5-1.1 [facility], [address] [place] [address] 17238 Glomerular Filtration Rate Calc Woody kamila 2020 10:05am Greater than 60 ml/min ABOVE 60 [facility], [address] [place] [address] 80499 Glomerular Filtration Rate Calc Sept ember 2019 8:55am Greater than 60 ml/min ABOVE 60 [facility], [address] [place] [address] 20858 Alanine Aminotransferase (ALT/SGPT) September 28, 2020 10:05am 21 U/L 49 [facility], [address] [place] [address] Alanine Aminotransferase (ALT/SGPT) June 11, 2020 8:55am 33 U/L 10-49 [facility], [address] [place] [address] 95165 Aspartate Amino Transf (AST/SGOT) Ja nuary 2020 10:05am 13 U/L 0-33 [facility], [address] [place] [address] Aspartate Amino Transf (AST/SGOT) Se ptember 2019 8:55am 16 U/L 0-33 [facility], [address] [place], [place] [address] Alkaline Phosphatase September 28 10:05am 74 U/L 45-129 [facility], [address] [place], [place] [address] Alkaline Phosphatase June 11, 2020 8:55am 93 U/L 45-129 [facility], [address] [place], [place] [address] Calcium Level September 28, 2020 10:05am 9.2 mg/dL 8.5-10.1 [facility], [address] [place], [place] [address] Calcium Level June 11, 2020 8:55am 8.8 mg/dL 8.5-10.1 [facility], [address] [place], [place] [address] Total Bilirubin September 28, 2020 10:05am 0.2 mg/dL 0.3-1.2 [facility], [address] [place], [place] [address] Total Bilirubin June 11, 2020 8:55a m 0.4 mg/dL 0.3-1.2 [facility], [address] [place], [place] [address] Albumin September 28, 2020 10:05am 3.6 g/dL 3.2-4.8 [facility], [address] [place], [place] [address] Albumin June 11, 2020 8:55am 3.5 g/dL 3.2-4.8 [facility], [address] [place], [place] [address] Serum Total Protein September 28 10:05am 7.0 g/dL 5.7-8.2 [facility], [address] [place], [place] [address] Serum Total Protein June 11, 2020 8:55am 7.2 g/dL 5.7-8.2 [facility], [address] [place], [place] [address] Thyroid Stimulating Hormone (TSH) Se pt2019 8:55am 2.01 uIU/mL 0.35-5.50 [facility], [address] [place], [place] [address] Diagnostic Imaging Reports Report Dictated Date/Time Dictated By Status Radiology Report May 12, 2020 5:28pm Nj Palacios MD completed [place] [address] [place] [address] [phone] NAME SEX PT STATUS ACCOUNT NUMBER BRIDGER [place] REG REF [id number] ORDERING PHYSICIAN LOCATION MEDICAL RECORD NO. Yee Cook MAMMO [id number] ATTENDING PHYSICIAN DATE OF DATE OF EXAM/TIME Carolann Ernst [employer] 1960 05[birth year]201110 TYPE / EXAM US Breast - Limited [...] 12, 2020 5:32pm Nj Palacios MD completed [facility] [address] [facility] [address] [place] [id number] [phone] NAME SEX PT STATUS ACCOUNT NUMBER BRIDGER CHAP[facility]O REG REF [id number] ORDERING PHYSICIAN LOCATION MEDICAL RECORD NO. Yee Cook MAMMO [id number] ATTENDING PHYSICIAN DATE OF DATE OF EXAM/TIME Carolann Ernst SPRING [employer]GER 1960 05[birth year]12/203 TYPE / EXAM 3D DIG MAMMO DIAG [...] mammogram was read with the assistance of [employer], an FDA-approved computer- aided detection system for [...] Directive Response Recorded Date/Time Advanced Directive No De cember 2019 8:32am Does Patient have a DNR? No August 30, 2020 8:32am Healthcare Proxy No Kelvin mbfawad 2019 8:32am Living Will No August 30, 2020 8:32am Chief Complaint and Reason for Visit Chief Complaint Lump/mass RT BREAST LUMP N63.10 Encounter to Establish Care Annual Physical Anxiety Telemed Visit preop,C50.909,Z01.818 Pre-operative H&P Reason for Visit Breast mass, right Depression Fatigue Breast cancer in female Depression Anxiety Depression Encounters Encounter Location(s) Ar rival/Admit Date Discharge/Depart Date Provider(s) Departed Physician/Provider Office Visit -[facility] May 07, 2020 1:10pm May 07, 2020 1:48pm Yee Cook Registered Referred -Mammography May 12, 2020 9:09am Yee Cook Departed Physician/Provider Office Visit -[facility] June 02, 2020 11:59am June 02, 2020 12:51pm Danielle Robbins Departed Emergency -Emergency Room ER June 11, 2020 8:25am June 11, 2020 9:15am null Departed Physician/Provider Office Visit -[facility] July 01, 2020 1:23pm July 01, 2020 3:04pm Danielle Robbins Departed Physician/Provider Office Visit -[facility] July 29, 2020 3:18pm July 29, 2020 4:21pm Danielle Robbins Departed Physician/Provider Office Visit -[facility] August 26, 2020 12:31pm August 26, 2020 3:03pm Danielle Robbins Registered Referred -EKG September 28, 2020 9:38am Olivier Santamaria DO Departed Physician/Provider Office Visit -[facility] September 29, 2020 9:19am September 29, 2020 10:29am Olivier Santamaria DO Recent Diagnosis Onset Date Breast mass, right [...] available Insurance Providers Guarantor BRIDGER CHAPARRO Address [address] [place] [address] Contact Info. Home Phone: Payer Policy Id Coverage Id Subscriber's Name Subscriber Id Effective Date Expiration Date [facility] [id number] BRIDGER CHAPARRO [id number] Self Pay Self N/A [employer] MEDICAID [id number] BRIDGER CHAPARRO [id number] Plan of Treatment RTC 1 MONTH LABS: [...] for Referral Referral Start Date Provider Provider Conta ct Information Provider Address C50.814 - Malignant neoplasm of unspecified site of un specified female breast July 01, 2020 detrariel lianne Future Procedures Future procedure information is unavailable Future Medications Future medication information is unavailable Patient Instructions Patient instructions are unavailable Social History Smoking Status Status Date of Observation Current every day smoker August 302019 8:32am Observation Status Observation Response Usman e of Response Smoking Status Current every day smoker August 30, 2020 8:32am Alcohol Use No August 30, 2020 8:32am [facility] Assigned Sex Female Vital Signs Vital Reading Result Ref erence Range Collection Date/Time Height 60.25 [in_i] May 07, 2020 2:10pm Weight 110.37 [lb_av] May 07, 2020 2:10pm Body Temperature 97.9 [degF] 97.6-99.5 May 07, 2020 2:10pm Heart Rate 59 /min 60-100 May 07, 2020 2:10pm Respiratory rate 18 /min 12-May 07, 2020 2:10pm Oxygen saturation by Pulse [...] 02, 2020 1:06pm Respiratory rate 18 /min 12-24 June 02, 2020 1:06pm Oxygen saturation by Pulse [...] 11, 2020 9:27am Respiratory rate 18 /min -June 11, 2020 9:27am Oxygen saturation by Pulse [...] 29, 2020 3:29pm Respiratory rate 18 /min 12-24 July 29, 2020 3:29pm Oxygen saturation by Pulse oximetry 98 % 95- 100 July 29, 2020 3:29pm BP Systolic 108 mm[Hg] July 29, 2020 3:29pm BP Diastolic 54 mm[Hg] July 29, 2020 3:29pm BMI (Body Mass Index) 22.5 kg/m2 July 29, 2020 3:29pm Height 60 [in_i] September 29, 2020 9:33am Weight 122.25 [lb_av] September 29, 2020 9:33am Body Temperature 97.6 [degF] 97.6-99.5 September 29, 2020 9:33am Heart Rate 52 /min 60-100 September 29, 2020 9:33am Respiratory rate 16 /min 12-24 September 29, 2020 9:33am Oxygen saturation by Pulse oximetry 97 % 95- 100 September 29, 2020 9:33am BP Systolic 100 mm[Hg] September 29, 2020 9:33am BP Diastolic 64 mm[Hg] September 29, 2020 9:33am BMI (Body Mass Index) 23.8 kg/m2 September 29, 2020 9:33am
--- OUTSIDE RECORDS SUMMARY | 2020-10-05 06:40 | CCD ---
Author Author [facility] Organization [facility] Address Unknown Phone Unavailable Care Team Providers Care Choral Director Name Role Phone Tricia Coleman Unavailable PROBLEMS Type Condition ICD9-CM Code XST07-XH Code Onset Dates Condition S tatus SNOMED Code Notes Problem Smoker F17.200 Active 87432398 Problem Malignant neoplasm of unspecified site of right female breast C50.911 Active 097656712 Problem Malignant neoplasm of right female breast, unspecified estrogen receptor status, unspecified site of breast C50.911 Active 3 [id number] ALLERGIES Allergen (clinical drug ingredient) Drug/Non Drug Allergy do cumented on EMR Reaction Allergy Type Onset Date Status Sulfacet-R Hives Drug Allergy Active ENCOUNTERS from 1960 to 2020-07-30 Encounter Location Date Provider Diagnosis [facility] [address] [place] [address] 04 Jul, 2020 Tricia Berhanerui IMMUNIZATIONS No Information SOCIAL HISTORY Sex Assigned At : Social History Observation Description Sex Assigned At Unknown REASON FOR REFERRAL No Information VITAL SIGNS No information MEDICATIONS Medication SIG (Take, Route, Frequency, Duration) Start Date En d Date Status Zoloft 25 MG 1 tablet Orally Once a day A ctive PROCEDURES No Information RESULTS No Results REASON FOR VISIT Right axillary Ln bx Goals Section No Information Health Concerns No Information MEDICAL EQUIPMENT No Information MENTAL STATUS No Information FUNCTIONAL STATUS No Information ASSESSMENTS No Information PLAN OF TREATMENT No Information Insurance Providers Payer Name Payer Address Payer Phone Insured Name Patient Relati onship to Insured Coverage Start Date Coverage End Date [facility] [address] [facility] [id number] [phone] CHAPARROBRIDGER self
--- OUTSIDE RECORDS SUMMARY | 2020-10-05 06:40 | CCD ---
Author Author [facility] Organization [facility] Address Unknown Phone Unavailable Care Team Providers Care Art Preparator Name Role Phone Tricia Coleman Unavailable PROBLEMS Type Condition ICD9-CM Code BHF45-WS Code Onset Dates Condition S tatus SNOMED Code Notes Problem Smoker F17.200 Active 47762766 Problem Malignant neoplasm of unspecified site of right female breast C50.911 Active 280328183 Problem Malignant neoplasm of right female breast, unspecified estrogen receptor status, unspecified site of breast C50.911 Active 3 [id number] ALLERGIES Allergen (clinical drug ingredient) Drug/Non Drug Allergy do cumented on EMR Reaction Allergy Type Onset Date Status Sulfacet-R Hives Drug Allergy Active ENCOUNTERS from 1960 to 2020-07-30 Encounter Location Date Provider Diagnosis [facility] [address] [place] [address] Jul, Tricia Berhanerui IMMUNIZATIONS No Information SOCIAL HISTORY Sex Assigned At : Social History Observation Description Sex Assigned At Unknown REASON FOR REFERRAL No Information VITAL SIGNS No information MEDICATIONS Medication SIG (Take, Route, Frequency, Duration) Start Date En d Date Status Zoloft 25 MG 1 tablet Orally Once a day A ctive PROCEDURES No Information RESULTS No Results REASON FOR VISIT S/P BX FU CALL Goals Section No Information Health Concerns No Information MEDICAL EQUIPMENT No Information MENTAL STATUS No Information FUNCTIONAL STATUS No Information ASSESSMENTS No Information PLAN OF TREATMENT No Information Insurance Providers Payer Name Payer Address Payer Phone Insured Name Patient Relati onship to Insured Coverage Start Date Coverage End Date [facility] [address] [facility] [phone] ARLET CHAAPRRORICIA self
--- OUTSIDE RECORDS SUMMARY | 2020-10-05 06:41 | CCD ---
Author Author [facility] Organization [facility] Address Unknown Phone Unavailable Care Team Providers Care Electrical Line Splicer Name Role Phone Tricia Coleman Unavailable PROBLEMS Type Condition ICD9-CM Code ANL70-XM Code Onset Dates Condition S tatus SNOMED Code Notes Problem Smoker F17.200 Active 38274577 Problem Malignant neoplasm of unspecified site of right female breast C50.911 Active 853467221 Problem Malignant neoplasm of right female breast, unspecified estrogen receptor status, unspecified site of breast C50.911 Active 3 70061107 ALLERGIES Allergen (clinical drug ingredient) Drug/Non Drug Allergy do cumented on EMR Reaction Allergy Type Onset Date Status Sulfacet-R Hives Drug Allergy Active ENCOUNTERS from 1960 to 2020-07-26 Encounter Location Date Provider Diagnosis [facility] [address] [place] [address] Jul, Tricia Berhanerui IMMUNIZATIONS No Information SOCIAL HISTORY Sex Assigned At : Social History Observation Description Sex Assigned At Unknown REASON FOR REFERRAL No Information VITAL SIGNS No information MEDICATIONS Medication SIG (Take, Route, Frequency, Duration) Start Date En d Date Status Zoloft 25 MG 1 tablet Orally Once a day A ctive PROCEDURES No Information RESULTS No Results REASON FOR VISIT Other Goals Section No Information Health Concerns No Information MEDICAL EQUIPMENT No Information MENTAL STATUS No Information FUNCTIONAL STATUS No Information ASSESSMENTS No Information PLAN OF TREATMENT No Information Insurance Providers Payer Name Payer Address Payer Phone Insured Name Patient Relati onship to Insured Coverage Start Date Coverage End Date [facility] [address] [phone] [place]APO [place] self
--- OUTSIDE RECORDS SUMMARY | 2020-10-05 06:41 | CCD ---
Author Author [facility] Organization [facility] Address Unknown Phone Unavailable Care Team Providers Care Lawn Care Technician Name Role Phone Virginia Tricia Unavailable PROBLEMS Type Condition ICD9-CM Code BVM57-XU Code Onset Dates Condition S tatus SNOMED Code Notes Problem Smoker F17.200 Active 92543693 Problem Malignant neoplasm of unspecified site of right female breast C50.911 Active 243315849 Problem Malignant neoplasm of right female breast, unspecified estrogen receptor status, unspecified site of breast C50.911 Active 3 [id number] ALLERGIES Allergen (clinical drug ingredient) Drug/Non Drug Allergy do cumented on EMR Reaction Allergy Type Onset Date Status Sulfacet-R Hives Drug Allergy Active ENCOUNTERS from 1960 to 2020-07-16 Encounter Location Date Provider Diagnosis [facility] [address] [place] [id number] Jun, Tricia Coleman IMMUNIZATIONS No Information SOCIAL HISTORY Sex Assigned At : Social History Observation Description Sex Assigned At Unknown REASON FOR REFERRAL No Information VITAL SIGNS No information MEDICATIONS Medication SIG (Take, Route, Frequency, Duration) Start Date En d Date Status Zoloft 25 MG 1 tablet Orally Once a day A ctive PROCEDURES No Information RESULTS No Results REASON FOR VISIT MRI schedule Goals Section No Information Health Concerns No Information MEDICAL EQUIPMENT No Information MENTAL STATUS No Information FUNCTIONAL STATUS No Information ASSESSMENTS No Information PLAN OF TREATMENT Next Appt Details Provider Name:Tricia Coleman, [birth year] 07:00:00 AM, [address] [place] [address], [id number], Insurance Providers Payer Name Payer Address Payer Phone Insured Name Patient Relati onship to Insured Coverage Start Date Coverage End Date FORMERLY [facility], 1928–1983 [employer] [facility] [address] [facility] [id number] [phone] BRIDGER CHAPARRO self
--- OUTSIDE RECORDS SUMMARY | 2020-10-05 06:41 | CCD | Continuity of Care Document ---
Author Author [facility] Address [address] [place] [address] Phone Support Name Relationship Address Phone Yee Cook [employer] [address] [place] [address] Carolann Ernst [employer]S [address] [place] [address] Doctor Provided, Family No PRS Unknown Unava ilable Danielle Robbins [employer] [address] [place] [address] Brant Jay [employer] [address] [place] [address] Allergies, Adverse Reactions, Alerts Allergen Type Severity Reaction Last Updated Verified Status Sulfa (Sulfonamide Antibiotics) Allergy June 11, 2020 8:34am Yes Active Medications Medication Status Dose Units Route Directions Qty Days Start Date End Date Instructions Sertraline Discontinued 25 MG PO daily June 02, 2020 12:42pm June 04, 2020 10:29am Alprazolam Active 0.25 MG PO Three times a day July 01, 2020 2:47pm Sertraline Active 25 MG PO daily July 29, 2020 4:07pm Sumatriptan Succinate (Imitrex) 25 mg tablet Active 25 MG PO . COMPLEX July 29, 2020 4:08pm take 1 tab at onset of heada ruben; if no relief may repeat 1 tab in 2hr; max = 4 tabs/day (24hr) PO 25 mg Cyclobenzaprine Discontinued 1 TAB PO Once Per [...] (Medrol (Joel)) 4 mg tablets,dose pa ck Active 0 PO .COMPLEX June 11, 2020 9:03am orally p er package directions Acetaminophen-Codeine Active 1 TAB PO Three times a day 10 June 11 0 9:03am Tramadol Discontinued 1 TAB PO Every 6 hours 20 5 June 13, 2018 10:57am June 19, 2018 [...] Fatigue Active Breast cancer in female Active Depression Active Calcific supraspinatus tendinitis Active [...] Count June 11 8:55am 6.7 10e3/uL 4.45-10.71 [facility], [address] [place] [address] Red Blood Count June 11, 2020 8:55a m 4.19 10e6/uL 4.20-5.40 [facility], [address] [place] [address] Hemoglobin June 11, 2020 8:55am 12.5 g/dL 10.7-15.4 [facility], [address] [place] [address] Hematocrit June 11, 2020 8:55am 39.9 % 37-47 [facility], [address] [place] [address] Mean Corpuscular Volume June 112019 8:55am 95.2 fl 80-96 [facility], [address] [place] [address] Mean Corpuscular Hemoglobin Septembe r 2019 8:55am 29.8 pg 27-31 [facility], [address] [place] [address] 75[address] Mean Corpuscular Hemoglobin Concent June 11, 2020 8:55am 31.3 g/dl 33-37 [facility], [address] [place] [address] Red Cell Distribution Width Septembe r 2019 8:55am 13 % 11-15 [facility], [address] [place] [address] Platelet Count June 11, 2020 8:55am 230 10e3/ul 130-472 [facility], [address] [place] [address] Mean Platelet Volume June 11, 2020 8:55am 10.0 fl 9.1-13.1 [facility], [address] [place] [address] Neutrophils (%) (Auto) May 8:55am 63.2 % 41-77 [facility], [address] [place] [address] Absolute Neutrophil June 11, 2020 8:55am 4.2 # 1.7-7.6 [facility], [address] [place] [address] Lymphocytes (%) (Auto) May 8:55am 23.8 % 14-46 [facility], [address] [place] [address] Lymphocytes # (Auto) June 11, 2020 8:55am 1.6 # 0.6-4.6 [facility], [address] [place] [address] Monocytes (%) (Auto) June 11, 2020 8:55am 8.9 % 4-12 [facility], [address] [place] [address] Monocytes # June 11, 2020 8:55am 0.6 # 0.2-1.2 [facility], [address] [place] [address] 615[address] Eosinophils (%) (Auto) May 8:55am 2.9 % 0-7 [facility], [address] [place] [address] 269[address] Absolute Eosinophils (CBC) June 11, 2020 8:55am 0.2 # 0.0-0.5 [facility], [address] [place] [address] Basophils (%) (Auto) June 11, 2020 8:55am 0.9 % 0.4-1.3 [facility], [address] [place] [address] Absolute Basophils (CBC) May 192019 8:55am 0.1 # 0.0-0.2 [facility], [address] [place] [address] Immature Granulocyte % (Auto) Sept2019 8:55am 0.3 % 0-2 [facility], [address] [place] [address] 26130 Absolute Immature Granulocyte (auto June 11, 2020 8:55am 0.0 # 0-0.1 [facility], [address] [place] [address] Add Manual Differential June 112019 8:55am No [facility], [address] [place], [place] [id number] Prothrombin Time June 11 0 8:55am 10.2 SECONDS 9.6-12.3 [facility], [address] [place], [place] [id number] INR International Normalized Ratio S eptember 2019 8:55am 1.0 0.9-1.1 THE INR IS OPERATIONALLY DEFINED FOR SWETA SH PLASMA FROMPATIENTS STABILIZED ON ORAL ANTICOAGULANTS. ROUTINE ANTICOAGULANT THERAPY 2.0-3.0RECURRENT SYSTEMIC EMBOLISM/HEART VALVE REPLACEMENT 2.5-3.5 [facility], [address] [place] [address] 12415 Blood Urea Nitrogen June 11, 2020 8:55am 12 mg/dL 9-23 [facility], [address] [place] [address] Sodium Level June 11, 2020 8:55am 142 mmol/L 132-146 [facility], [address] [place] [address] Potassium Level June 11, 2020 8:55a m 4.4 mmol/L 3.5-5.5 [facility], [address] [place] [address] 14130 Chloride Level June 11, 2020 8:55am 111 mmol/l 99-109 [facility], [address] [place] [address] 70438 Carbon Dioxide Level June 11, 2020 8:55am 29 mmol/l 20-31 [facility], [address] [place] [address] 15133 Anion Gap June 11, 2020 8:55am 6 mmol/l 8-16 [facility], [address] [place] [address]87[address] Glucose Level June 11, 2020 8:55am 92 mg/dL 74-106 [facility], [address] [place] [address] Creatinine June 11, 2020 8:55am 0.6 mg/dL 0.5-1.1 [facility], [address] [place] [address]250 Glomerular Filtration Rate Calc Sept emb2019 8:55am Greater than 60 ml/min ABOVE 60 [facility], [address] [place], [place] [address] Alanine Aminotransferase (ALT/SGPT) June 11, 2020 8:55am 33 U/L 10-49 [facility], [address] [place] [address] 55270 Aspartate Amino Transf (AST/SGOT) Se pt2019 8:55am 16 U/L 0-33 [facility], [address] [place] [address] 30825 Alkaline Phosphatase June 11, 2020 8:55am 93 U/L 45-129 [facility], [address] [place] [address] 83146 Calcium Level June 11, 2020 8:55am 8.8 mg/dL 8.5-10.1 [facility], [address] [place] [address]26[address] Total Bilirubin June 11, 2020 8:55a m 0.4 mg/dL 0.3-1.2 [facility], [address] [place] [address] 62272 Albumin June 11, 2020 8:55am 3.5 g/dL 3.2-4.8 [facility], [address] [place] [address] 21304 Serum Total Protein June 11, 2020 8:55am 7.2 g/dL 5.7-8.2 [facility], [address] [place] [address] 20813 Thyroid Stimulating Hormone (TSH) Se pt2019 8:55am 2.01 uIU/mL 0.35-5.50 [facility], [address] [place] [address] Diagnostic Imaging Reports Report Dictated Date/Time Dictated By Status Radiology Report May 12, 2020 5:28pm Nj Palacios MD completed [place] [address] [place] [address] [phone] NAME SEX PT STATUS ACCOUNT NUMBER BRIDGER CHAPARRO REG REF [id number] ORDERING PHYSICIAN LOCATION MEDICAL RECORD NO. Yee [employer] MOUNTERBritni Cook MAMMO [id number] ATTENDING PHYSICIAN DATE OF DATE OF EXAM/TIME Carolann Ernst NP 1960 05[birth year]12[birth year]20 / 1110 TYPE / EXAM [...] 12, 2020 5:32pm Nj Palacios MD completed [place] [address] [place] [id number] [phone] NAME SEX PT STATUS ACCOUNT NUMBER BRIDGER CHAPARRO REG REF [id number] ORDERING PHYSICIAN LOCATION MEDICAL RECORD NO. Yee [facility] MAMMO [id number] ATTENDING PHYSICIAN DATE OF DATE OF EXAM/TIME Carolann Ernst NP 1960 05[birth year]12[birth year]20 / 3 TYPE / EXAM 3D DIG MAMMO DIAG [...] mammogram was read with the assistance of M-Orange[employer], an FDA-approved computer- aided detection system for [...] Response Recorded Date/Time Advanced Directive No Se pt2019 8:31am Does Patient have a DNR? No June 11, 2020 8:31am Healthcare Proxy No May 8:31am Living Will No December 5:18pm Chief Complaint and Reason for Visit Chief Complaint Lump/mass RT BREAST LUMP N63.10 Encounter to Establish Care Annual Physical Anxiety Reason for Visit Breast mass, right Depression Fatigue Breast cancer in female Depression Encounters Encounter Location(s) Ar rival/Admit Date Discharge/Depart Date Provider(s) Departed Physician/Provider Office Visit [facility] May 07, 2020 1:10pm May 07, 2020 1:48pm [facility]ee [facility]pe [facility], [facility] Yee Cook Departed Physician/Provider Office Visit [facility] June 02, 2020 11:59am June 02, 2020 12:51pm Danielle Robbins Departed Emergency [facility] ER June 11, 2020 8:25am June 11, 2020 9:15am null Departed Physician/Provider Office Visit [facility] July 01, 2020 1:23pm July 01, 2020 3:04pm Danielle Robbins Departed Physician/Provider Office Visit [facility] July 29, 2020 3:18pm July 29, 2020 4:21pm Danielle Robbins Recent Diagnosis Onset Date Breast mass, right Depression Fatigue Breast cancer in female Depression Assessments Diagnosis Onset Date Res olution Status Breast mass, right acute Depression acute Fatigue acute Breast cancer in female acute Depression acute Family History Relationship Condition A ge at Onset Recorded Date/Time Not Specified Hyperlipidemia Unknown Not Specified Alzheimer's disease Unknown Functional Status No Functional Status information available Goals Goals may be documented in an alternate section. Immunizations No Immunization Information Available Mental Status No Mental Status Information Available Medical Equipment No Medical Equipment Information available Insurance Providers Guarantor BRIDGER CHAPARRO Address [address] [place] [address] Contact Info. Home Phone: Payer Policy Id Coverage Id Subscriber's Name Subscriber Id Effective Date Expiration Date [facility] [place] [id number] BRIDGER CHAPARRO [id number] Self Pay Self N/A [facility] MEDICAID [id number] BRIDGER CHAPARRO [id number] Plan of Treatment LABS: CBC, CMP, LIPIDS, TSH, COAG. RTC [...] Provider Provider Conta ct Information Provider Address C50.919 - Malignant neoplasm of unspecified site of [...] 01, 2020 2:34pm Respiratory rate 18 /min 12-24 July 01, 2020 2:34pm Oxygen saturation by Pulse [...]
--- OUTSIDE RECORDS SUMMARY | 2020-10-05 06:41 | CCD ---
Author Author [facility] Organization [facility] Address Unknown Phone Unavailable Care Team Providers Care Talent Acquisition Relationship Manager Name Role Phone Mandappa, Cass CASAC Unavailable Unavailable Mandappa, Cass CASAC Unavailable Unavailable Mandappa, Cass CASAC Unavailable Unavailable Mandappa, Cass CASAC Unavailable Unavailable JOSEMANUEL NGUYEN MD Unavailable Unavailable Tima BAIG Unavailable Unavailable Tima BAIG Unavailable Unavailable HANIFIN, M TITO PA Unavailable Unavailable HANIFIN, M TITO PA Unavailable Unavailable HANIFIN, M TITO PA Unavailable Unavailable HANIFIN, M TITO PA Unavailable Unavailable HANIFIN, M TITO PA Unavailable Unavailable HANIFIN, M TITO PA Unavailable Unavailable HANIFIN, M TITO PA Unavailable Unavailable HANIFIN, M TITO PA Unavailable Unavailable HANIFIN, M TITO PA Unavailable Unavailable HANIFIN, M TITO PA Unavailable Unavailable HANIFIN, M TITO PA Unavailable Unavailable HANIFIN, M TITO PA Unavailable Unavailable HANIFIN, M TITO PA Unavailable Unavailable HANIFIN, M TITO PA Unavailable Unavailable HANIFIN, M TITO PA Unavailable Unavailable HANIFIN, M TITO PA Unavailable Unavailable HANIFIN, M TITO PA Unavailable Unavailable HANIFIN, M TITO PA Unavailable Unavailable HANIFIN, M TITO PA Unavailable Unavailable HANIFIN, M TITO PA Unavailable Unavailable HANIFIN, M TITO PA Unavailable Unavailable HANIFIN, M TITO PA Unavailable Unavailable HANIFIN, M TITO PA Unavailable Unavailable HANIFIN, M TITO PA Unavailable Unavailable HANIFIN, M TITO PA Unavailable Unavailable HANIFIN, M TITO PA Unavailable Unavailable HANIFIN, M TITO PA Unavailable Unavailable HANIFIN, M TITO PA Unavailable Unavailable HANIFIN, M TITO PA Unavailable Unavailable HANIFIN, M TITO PA Unavailable Unavailable HANIFIN, M TITO PA Unavailable Unavailable HANIFIN, M TITO PA Unavailable Unavailable HANIFIN, M TITO PA Unavailable Unavailable HANIFIN, M TITO PA Unavailable Unavailable HANIFIN, M TITO PA Unavailable Unavailable HANIFIN, M TITO PA Unavailable Unavailable HANIFIN, M TITO PA Unavailable Unavailable HANIFIN, M TITO PA Unavailable Unavailable HANIFIN, M TITO PA Unavailable Unavailable HANIFIN, M TITO PA Unavailable Unavailable HANIFIN, M TITO PA Unavailable Unavailable HANIFIN, M TITO PA Unavailable Unavailable HANIFIN, M TITO PA Unavailable Unavailable HANIFIN, M TITO PA Unavailable Unavailable HANIFIN, M TITO PA Unavailable Unavailable HANIFIN, M TITO PA Unavailable Unavailable HANIFIN, M TITO PA Unavailable Unavailable HANIFIN, M TITO PA Unavailable Unavailable HANIFIN, M TITO PA Unavailable Unavailable Cook, L Yee HYDROCRANE OPERATOR Unavailable Unavailable Cook, L Yee HYDROCRANE OPERATOR Unavailable Unavailable Cook, L Yee HYDROCRANE OPERATOR Unavailable Unavailable Cook, L Yee HYDROCRANE OPERATOR Unavailable Unavailable Cook, L Yee HYDROCRANE OPERATOR Unavailable Unavailable Cook, L Yee HYDROCRANE OPERATOR Unavailable Unavailable Cook, L Yee HYDROCRANE OPERATOR Unavailable Unavailable Cook, L Yee HYDROCRANE OPERATOR Unavailable Unavailable Cook, L Yee HYDROCRANE OPERATOR Unavailable Unavailable Cook, L Yee HYDROCRANE OPERATOR Unavailable Unavailable Cook, L Yee HYDROCRANE OPERATOR Unavailable Unavailable Cook, L Yee HYDROCRANE OPERATOR Unavailable Unavailable Cook, L Yee HYDROCRANE OPERATOR Unavailable Unavailable Cook, L Yee HYDROCRANE OPERATOR Unavailable Unavailable Cook, L Yee HYDROCRANE OPERATOR Unavailable Unavailable Cook, L Yee HYDROCRANE OPERATOR Unavailable Unavailable Cook, L Yee HYDROCRANE OPERATOR Unavailable Unavailable Cook, L Yee HYDROCRANE OPERATOR Unavailable Unavailable Cook, L Yee HYDROCRANE OPERATOR Unavailable Unavailable Cook, L Yee HYDROCRANE OPERATOR Unavailable Unavailable Cook, L Yee HYDROCRANE OPERATOR Unavailable Unavailable Cook, L Yee HYDROCRANE OPERATOR Unavailable Unavailable Cook, L Yee HYDROCRANE OPERATOR Unavailable Unavailable Cook, L Yee HYDROCRANE OPERATOR Unavailable Unavailable Cook, L Yee HYDROCRANE OPERATOR Unavailable Unavailable Cook, L Yee HYDROCRANE OPERATOR Unavailable Unavailable Cook, L Yee HYDROCRANE OPERATOR Unavailable Unavailable Cook, L Yee HYDROCRANE OPERATOR Unavailable Unavailable Cook, L Yee HYDROCRANE OPERATOR Unavailable Unavailable Cook, L Yee HYDROCRANE OPERATOR Unavailable Unavailable Cook, L Yee HYDROCRANE OPERATOR Unavailable Unavailable Cook, L Yee HYDROCRANE OPERATOR Unavailable Unavailable Cook, L Yee HYDROCRANE OPERATOR Unavailable Unavailable Cook, L Yee HYDROCRANE OPERATOR Unavailable Unavailable Cook, L Yee HYDROCRANE OPERATOR Unavailable Unavailable Cook, L Yee HYDROCRANE OPERATOR Unavailable Unavailable Cook, L Yee HYDROCRANE OPERATOR Unavailable Unavailable Cook, L Yee HYDROCRANE OPERATOR Unavailable Unavailable Cook, L Yee HYDROCRANE OPERATOR Unavailable Unavailable Cook, L Yee HYDROCRANE OPERATOR Unavailable Unavailable Cook, L Yee HYDROCRANE OPERATOR Unavailable Unavailable Cook, L Yee HYDROCRANE OPERATOR Unavailable Unavailable Cook, L Yee HYDROCRANE OPERATOR Unavailable Unavailable PARSNURY, Pallavi BARROW MD Unavailable Unavailable PARSPallavi ARRINGTON MD Unavailable Unavailable PARSPallavi ARRINGTON MD Unavailable Unavailable PARSHALPallavi Walker MD Unavailable Unavailable PARSPallavi ARRINGTON MD Unavailable Unavailable PARSPallavi ARRINGTON MD Unavailable Unavailable Pallavi OLIVA MD Unavailable Unavailable Pallavi OLIVA MD Unavailable Unavailable Pallavi OLIVA MD Unavailable Unavailable Pallavi OLIVA MD Unavailable Unavailable PARSPallavi ARRINGTON MD Unavailable Unavailable PARSPallavi ARRINGTON MD Unavailable Unavailable PARSPallavi ARRINGTON MD Unavailable Unavailable Pallavi OLIVA MD Unavailable Unavailable PARSHALL, Pallavi BARROW MD Unavailable Unavailable PARSHALL, Pallavi BARROW MD Unavailable Unavailable PARSHALL, Pallavi BARROW MD Unavailable Unavailable PARSHALL, Pallavi BARROW MD Unavailable Unavailable PARSHALL, Pallavi BARROW MD Unavailable Unavailable PARSHALL, A DANIAL MABRY Unavailable Unavailable PARSHALL, Pallavi BARROW MD Unavailable Unavailable PARSHALL, Pallavi BARROW MD Unavailable Unavailable PARSHALL, A DANIAL MABRY Unavailable Unavailable PARSHALL, A DANIAL MABRY Unavailable Unavailable PARSHALL, Pallavi BARROW MD Unavailable Unavailable PARSHALL, A DANIAL MABRY Unavailable Unavailable PARSHALL, A DANIAL MABRY Unavailable Unavailable PARSHALL, Pallavi BARROW MD Unavailable Unavailable ALISON, Angélica CAVANAUGH MD Unavailable Unavailable ALISON, Angélica CAVANAUGH MD Unavailable Unavailable ALISON, Angélica CAVANAUGH MD Unavailable Unavailable ALISON, Angélica CAVANAUGH MD Unavailable Unavailable ALISON, Angélica CAVANAUGH MD Unavailable Unavailable ALISON, Angélica CAVANAUGH MD Unavailable Unavailable ALISON, Angélica CAVANAUGH MD Unavailable Unavailable ALISON, Angélica CAVANAUGH MD Unavailable Unavailable ALISON, Angélica CAVAANUGH MD Unavailable Unavailable ALISON, Angélica CAVANAUGH MD Unavailable Unavailable ALISON, Angélica CAVANAUGH MD Unavailable Unavailable ALISON, Angélica CAVANAUGH MD Unavailable Unavailable ALISON, Angélica CAVANAUGH MD Unavailable Unavailable ALISON, Angélica CAVANAUGH MD Unavailable Unavailable ALISON, Angélica CAVANAUGH MD Unavailable Unavailable ALISON, Angélica CAVANAUGH MD Unavailable Unavailable ALISON, Angélica CAVANAUGH MD Unavailable Unavailable ALISON, Angélica CAVANAUGH MD Unavailable Unavailable ALISON, Angélica CAVANAUGH MD Unavailable Unavailable ALISON, Angélica CAVANAUGH MD Unavailable Unavailable ALISON, Angélica CAVANAUGH MD Unavailable Unavailable ALISON, Angélica CAVANAUGH MD Unavailable Unavailable ALISON, Angélica CAVANAUGH MD Unavailable Unavailable ALISON, Angélica CAVANAUGH MD Unavailable Unavailable ALISON, Angélica CAVANAUGH MD Unavailable Unavailable ALISON, Angélica CAVANAUGH MD Unavailable Unavailable ALISON, Angélica CAVANAUGH MD Unavailable Unavailable ALISON, Angélica CAVANAUGH MD Unavailable Unavailable ALISON, Angélica CAVANAUGH MD Unavailable Unavailable ALISON, Angélica CAVANAUGH MD Unavailable Unavailable ALISON, Angélica CAVANAUGH MD Unavailable Unavailable ALISON, Angélica CAVANAUGH MD Unavailable Unavailable ALISON, Angélica CAVANAUGH MD Unavailable Unavailable ALISON, Angélica CAVANAUGH MD Unavailable Unavailable ALISON, Angélica CAVANAUGH MD Unavailable Unavailable ALISON, Angélica CAVANAUGH MD Unavailable Unavailable ALISON, Angélica CAVANAUGH MD Unavailable Unavailable ALISON, Angélica CAVANAUGH MD Unavailable Unavailable ALISON, Angélica CAVANAUGH MD Unavailable Unavailable ALISON, Angélica CAVANAUGH MD Unavailable Unavailable ALISON, Angélica CAVANAUGH MD Unavailable Unavailable ALISON, Angélica CAVANAUGH MD Unavailable Unavailable ALISON, Angélica CAVANAUGH MD Unavailable Unavailable ALISON, Angélica CAVANAUGH MD Unavailable Unavailable ALISON, Angélica CAVANAUGH MD Unavailable Unavailable ALISON, Angélica CAVANAUGH MD Unavailable Unavailable ALISON, Angélica CAVANAUGH MD Unavailable Unavailable ALISON, Angélica CAVANAUGH MD Unavailable Unavailable ALISON, Angélica CAVANAUGH MD Unavailable Unavailable ALISON, Angélica CAVANAUGH MD Unavailable Unavailable ALISON, Angélica CAVANAUGH MD Unavailable Unavailable ALISON, Angélica CAVANAUGH MD Unavailable Unavailable ALISON, Angélica CAVANAUGH MD Unavailable Unavailable ALISON, Angélica CAVANAUGH MD Unavailable Unavailable ALISON, Angélica CAVANAUGH MD Unavailable Unavailable ALISON, Angélica CAVANAUGH MD Unavailable Unavailable ALISON, Angélica CAVANAUGH MD Unavailable Unavailable ALISON, Angélica CAVANAUGH MD Unavailable Unavailable ALISON, Angélica CAVANAUGH MD Unavailable Unavailable ALISON, Angélica CAVANAUGH MD Unavailable Unavailable ALISON, Angélica CAVANAUGH MD Unavailable Unavailable ALISON, Angélica CAVANAUGH MD Unavailable Unavailable ALISON, Angélica CAVANAUGH MD Unavailable Unavailable ALISON, Angélica CAVANAUGH MD Unavailable Unavailable ALISON, Angélica CAVANAUGH MD Unavailable Unavailable ALISON, Angélica CAVANAUGH MD Unavailable Unavailable ALISON, Angélica CAVANAUGH MD Unavailable Unavailable ALISON, Angélica CAVANAUGH MD Unavailable Unavailable ALISON, Angélica CAVANAUGH MD Unavailable Unavailable ALISON, Angélica CAVANAUGH MD Unavailable Unavailable ALISON, Angélica CAVANAUGH MD Unavailable Unavailable ALISON, Angélica CAVANAUGH MD Unavailable Unavailable ALISON, Angélica CAVANAUGH MD Unavailable Unavailable ALISON, Angélica CAVANAUGH MD Unavailable Unavailable ALISON, Angélica CAVANAUGH MD Unavailable Unavailable ALISON, Angélica CAVANAUGH MD Unavailable Unavailable ALISON, Angélica CAVANAUGH MD Unavailable Unavailable ALISON, Angélica CAVANAUGH MD Unavailable Unavailable ALISON, Angélica CAVANAUGH MD Unavailable Unavailable ALISON, Angélica CAVANAUGH MD Unavailable Unavailable ALISON, Angélica CAVANAUGH MD Unavailable Unavailable ALISON, Angélica CAVANAUGH MD Unavailable Unavailable ALISON, Angélica CAVANAUGH MD Unavailable Unavailable ALISON, Angélica CAVANAUGH MD Unavailable Unavailable ALISON, Angélica CAVANAUGH MD Unavailable Unavailable ALISON, Angélica CAVANAUGH MD Unavailable Unavailable ALISON, Angélica CAVANAUGH MD Unavailable Unavailable ALISON, Angélica CAVANAUGH MD Unavailable Unavailable Angélica ROSAS MD Unavailable Unavailable Angélica ROSAS MD Unavailable Unavailable Brant Jay MD Unavailable Unavailable Rosendo, H Danielle HYDROCRANE OPERATOR Unavailable Unavailable Rosendo, H Danielle HYDROCRANE OPERATOR Unavailable Unavailable Rosendo, H Danielle HYDROCRANE OPERATOR Unavailable Unavailable Rosendo, H Danielle HYDROCRANE OPERATOR Unavailable Unavailable Rosendo, H Danielle HYDROCRANE OPERATOR Unavailable Unavailable Rosendo, H Danielle HYDROCRANE OPERATOR Unavailable Unavailable Rosendo, H Danielle HYDROCRANE OPERATOR Unavailable Unavailable Rosendo, H Danielle HYDROCRANE OPERATOR Unavailable Unavailable Rosendo, H Danielle HYDROCRANE OPERATOR Unavailable Unavailable Rosendo, H Danielle HYDROCRANE OPERATOR Unavailable Unavailable Rosendo, H Danielle HYDROCRANE OPERATOR Unavailable Unavailable Rosendo, H Danielle HYDROCRANE OPERATOR Unavailable Unavailable Rosnedo, H Danielle HYDROCRANE OPERATOR Unavailable Unavailable Rosendo, H Danielle HYDROCRANE OPERATOR Unavailable Unavailable Rosendo, H Danielle HYDROCRANE OPERATOR Unavailable Unavailable Rosendo, H Danielle HYDROCRANE OPERATOR Unavailable Unavailable Rosendo, H Danielle HYDROCRANE OPERATOR Unavailable Unavailable Rosendo, H Danielle HYDROCRANE OPERATOR Unavailable Unavailable Rosendo, H Danielle HYDROCRANE OPERATOR Unavailable Unavailable Rosendo, H Danielle HYDROCRANE OPERATOR Unavailable Unavailable Rosendo, H Danielle HYDROCRANE OPERATOR Unavailable Unavailable Rosendo, H Danielle HYDROCRANE OPERATOR Unavailable Unavailable Rosendo, H Danielle HYDROCRANE OPERATOR Unavailable Unavailable Rosendo, H Danielle HYDROCRANE OPERATOR Unavailable Unavailable Rosendo, H Danielle HYDROCRANE OPERATOR Unavailable Unavailable Rosendo, H Danielle HYDROCRANE OPERATOR Unavailable Unavailable Rosendo, H Danielle HYDROCRANE OPERATOR Unavailable Unavailable Rosendo, H Danielle HYDROCRANE OPERATOR Unavailable Unavailable Rosendo, H Danielle HYDROCRANE OPERATOR Unavailable Unavailable Rosendo, H Danielle HYDROCRANE OPERATOR Unavailable Unavailable Rosendo, H Danielle HYDROCRANE OPERATOR Unavailable Unavailable Rosendo, H Danielle HYDROCRANE OPERATOR Unavailable Unavailable Rosendo, H Danielle HYDROCRANE OPERATOR Unavailable Unavailable Rosendo, H Danielle HYDROCRANE OPERATOR Unavailable Unavailable Rosendo, H Danielle HYDROCRANE OPERATOR Unavailable Unavailable Rosendo, H Danielle HYDROCRANE OPERATOR Unavailable Unavailable Rosendo, H Danielle HYDROCRANE OPERATOR Unavailable Unavailable Rosendo, H Danielle HYDROCRANE OPERATOR Unavailable Unavailable Rosendo, H Danielle HYDROCRANE OPERATOR Unavailable Unavailable Rosendo, H Danielle HYDROCRANE OPERATOR Unavailable Unavailable Rosendo, H Danielle HYDROCRANE OPERATOR Unavailable Unavailable Rosendo, H Danielle HYDROCRANE OPERATOR Unavailable Unavailable Rosendo, H Danielle HYDROCRANE OPERATOR Unavailable Unavailable Rosendo, H Danielle HYDROCRANE OPERATOR Unavailable Unavailable Rosendo, H Danielle HYDROCRANE OPERATOR Unavailable Unavailable Rosendo, H Danielle HYDROCRANE OPERATOR Unavailable Unavailable Rosendo, H Danielle HYDROCRANE OPERATOR Unavailable Unavailable Rosendo, H Danielle HYDROCRANE OPERATOR Unavailable Unavailable Rosendo, H Danielle HYDROCRANE OPERATOR Unavailable Unavailable Rosendo, H Danielle HYDROCRANE OPERATOR Unavailable Unavailable Rosendo, H Danielle HYDROCRANE OPERATOR Unavailable Unavailable Rosendo, H Danielle HYDROCRANE OPERATOR Unavailable Unavailable Rosendo, H Danielle HYDROCRANE OPERATOR Unavailable Unavailable Rosendo, H Danielle HYDROCRANE OPERATOR Unavailable Unavailable Rosendo, H Danielle HYDROCRANE OPERATOR Unavailable Unavailable Rosendo, H Danielle HYDROCRANE OPERATOR Unavailable Unavailable Rosendo, H Danielle HYDROCRANE OPERATOR Unavailable Unavailable Miranda II, C Adair RPA-C Unavailable Unavailable Miranda II, C Adair RPA-C Unavailable Unavailable Miranda II, C Adair RPA-C Unavailable Unavailable Miranda II, C Adair RPA-C Unavailable Unavailable Miranda II, C Adair RPA-C Unavailable Unavailable Miranda II, C Adair RPA-C Unavailable Unavailable Miranda II, C Adair RPA-C Unavailable Unavailable Miranda II, C Adair RPA-C Unavailable Unavailable Miranda II, C Adair RPA-C Unavailable Unavailable Miranda II, C Adair RPA-C Unavailable Unavailable Miranda II, C Adair RPA-C Unavailable Unavailable Miranda II, C Adair RPA-C Unavailable Unavailable Miranda II, C Adair RPA-C Unavailable Unavailable Miranda II, C Adair RPA-C Unavailable Unavailable Miranda II, C Adair RPA-C Unavailable Unavailable Miranda II, C Adair RPA-C Unavailable Unavailable Miranda II, C Adair RPA-C Unavailable Unavailable Miranda II, C Adair RPA-C Unavailable Unavailable Miranda II, C Adair RPA-C Unavailable Unavailable Miranda II, C Adair RPA-C Unavailable Unavailable Miranda II, C Adair RPA-C Unavailable Unavailable Miranda II, C Adair RPA-C Unavailable Unavailable Miranda II, C Adair RPA-C Unavailable Unavailable Miranda II, C Adair RPA-C Unavailable Unavailable Miranda II, C Adair RPA-C Unavailable Unavailable Miranda II, C Adair RPA-C Unavailable Unavailable Miranda II, C Adair RPA-C Unavailable Unavailable Miranda II, C Adair RPA-C Unavailable Unavailable Miranda II, C Adair RPA-C Unavailable Unavailable Miranda II, C Adair RPA-C Unavailable Unavailable Miranda II, C Adair RPA-C Unavailable Unavailable Miranda II, C Adair RPA-C Unavailable Unavailable Miranda II, C Adair RPA-C Unavailable Unavailable Miranda II, C Adair RPA-C Unavailable Unavailable Miranda II, C Adair RPA-C Unavailable Unavailable Miranda II, C Adair RPA-C Unavailable Unavailable Miranda II, C Adair RPA-C Unavailable Unavailable Chevy, G Candice Unavailable Unavailable Danial Lake MD Unavailable Unavailable Danial Lake MD Unavailable Unavailable Parmeter, Carolina HYDROCRANE OPERATOR Unavailable Unavailable Parmeter, Carolina HYDROCRANE OPERATOR Unavailable Unavailable Parmeter, [place] HYDROCRANE OPERATOR Unavailable Unavailable Parmeter, [place] HYDROCRANE OPERATOR Unavailable Unavailable Parmeter, Carolina HYDROCRANE OPERATOR Unavailable Unavailable Parmeter, [place] HYDROCRANE OPERATOR Unavailable Unavailable Parmeter, Carolina HYDROCRANE OPERATOR Unavailable Unavailable Parmeter, Carolina HYDROCRANE OPERATOR Unavailable Unavailable Parmeter, Carolina HYDROCRANE OPERATOR Unavailable Unavailable Parmeter, Carolina HYDROCRANE OPERATOR Unavailable Unavailable Parmeter, Carolina HYDROCRANE OPERATOR Unavailable Unavailable Parmeter, Carolina HYDROCRANE OPERATOR Unavailable Unavailable Parmeter, [place] HYDROCRANE OPERATOR Unavailable Unavailable Parmeter, Carolina HYDROCRANE OPERATOR Unavailable Unavailable Parmeter, Carolina HYDROCRANE OPERATOR Unavailable Unavailable Parmeter, [place] HYDROCRANE OPERATOR Unavailable Unavailable Parmeter, [place] HYDROCRANE OPERATOR Unavailable Unavailable Parmeter, [place] HYDROCRANE OPERATOR Unavailable Unavailable Parmeter, [place] HYDROCRANE OPERATOR Unavailable Unavailable Parmeter, [place] HYDROCRANE OPERATOR Unavailable Unavailable Parmeter, [place] HYDROCRANE OPERATOR Unavailable Unavailable Parmeter, [place] HYDROCRANE OPERATOR Unavailable Unavailable Parmeter, [place] HYDROCRANE OPERATOR Unavailable Unavailable Parmeter, [place] HYDROCRANE OPERATOR Unavailable Unavailable Parmeter, [place] HYDROCRANE OPERATOR Unavailable Unavailable Parmeter, [place] HYDROCRANE OPERATOR Unavailable Unavailable Parmeter, [place] HYDROCRANE OPERATOR Unavailable Unavailable Parmeter, [place] HYDROCRANE OPERATOR Unavailable Unavailable Parmeter, Carolina HYDROCRANE OPERATOR Unavailable Unavailable Parmeter, Carolina HYDROCRANE OPERATOR Unavailable Unavailable Parmeter, Carolina HYDROCRANE OPERATOR Unavailable Unavailable Parmeter, [place] HYDROCRANE OPERATOR Unavailable Unavailable Parmeter, Carolina HYDROCRANE OPERATOR Unavailable Unavailable Parmeter, [place] HYDROCRANE OPERATOR Unavailable Unavailable Parmeter, [place] HYDROCRANE OPERATOR Unavailable Unavailable Parmeter, [place] HYDROCRANE OPERATOR Unavailable Unavailable Parmeter, [place] HYDROCRANE OPERATOR Unavailable Unavailable Parmeter, [place] HYDROCRANE OPERATOR Unavailable Unavailable Parmeter, [place] HYDROCRANE OPERATOR Unavailable Unavailable Parmeter, [place] HYDROCRANE OPERATOR Unavailable Unavailable Parmeter, [place] HYDROCRANE OPERATOR Unavailable Unavailable Parmeter, [place] HYDROCRANE OPERATOR Unavailable Unavailable Parmeter, [place] HYDROCRANE OPERATOR Unavailable Unavailable Parmeter, [place] HYDROCRANE OPERATOR Unavailable Unavailable Parmeter, [place] HYDROCRANE OPERATOR Unavailable Unavailable Parmeter, [place] HYDROCRANE OPERATOR Unavailable Unavailable Parmeter, [place] HYDROCRANE OPERATOR Unavailable Unavailable Doctor Provided, Family PHYS No Family Unavailable U navailable RL SANTAMARIA MD Unavailable Unavailable RL SANTAMARIA MD Unavailable Unavailable RL SANTAMARIA MD Unavailable Unavailable RL SANTAMARIA MD Unavailable Unavailable RL SANTAMARIA MD Unavailable Unavailable RL SANTAMARIA MD Unavailable Unavailable RL SANTAMARIA MD Unavailable Unavailable RL SANTAMARIA MD Unavailable Unavailable RL SANTAMARIA MD Unavailable Unavailable RL SANTAMARIA MD Unavailable Unavailable RL SANTAMARIA MD Unavailable Unavailable RL SANTAMARIA MD Unavailable Unavailable RL SANTAMARIA MD Unavailable Unavailable RL SANTAMARIA MD Unavailable Unavailable RL SANTAMARIA MD Unavailable Unavailable RL SANTAMARIA MD Unavailable Unavailable RL SANTAMARIA MD Unavailable Unavailable RL SANTAMARIA MD Unavailable Unavailable RL SANTAMARIA MD Unavailable Unavailable RL SANTAMARIA MD Unavailable Unavailable RL SANTAMARIA MD Unavailable Unavailable RL SANTAMARIA MD Unavailable Unavailable RL SANTAMARIA MD Unavailable Unavailable LAMBERTO, RL MD Unavailable Unavailable LAMBERTO, RL MD Unavailable Unavailable LAMBERTO, RL MD Unavailable Unavailable LAMBERTO, RL MD Unavailable Unavailable LAMBERTO, RL MD Unavailable Unavailable LAMBERTO, RL MD Unavailable Unavailable LAMBERTO, RL MD Unavailable Unavailable LAMBERTO, RL MD Unavailable Unavailable LAMBERTO, RL MD Unavailable Unavailable LAMBERTO, RL MD Unavailable Unavailable LAMBERTO, RL MD Unavailable Unavailable LAMBERTO, RL MD Unavailable Unavailable LAMBERTO, RL MD Unavailable Unavailable LAMBERTO, RL MD Unavailable Unavailable LAMBERTO, RL MD Unavailable Unavailable LAMBERTO, RL MD Unavailable Unavailable LAMBERTO, RL MD Unavailable Unavailable LAMBERTO, RL MD Unavailable Unavailable LAMBERTO, RL MD Unavailable Unavailable LAMBERTO, RL MD Unavailable Unavailable LAMBERTO, RL MD Unavailable Unavailable LAMBERTO, RL MD Unavailable Unavailable LAMBERTO, RL MD Unavailable Unavailable LAMBERTO, RL MD Unavailable Unavailable LAMBERTO, RL MD Unavailable Unavailable LAMBERTO, RL MD Unavailable Unavailable LAMBERTO, RL MD Unavailable Unavailable LAMBERTO, RL MD Unavailable Unavailable LAMBERTO, RL MD Unavailable Unavailable Re-disclosure Warning The records that you are about to access may contain information from federally-assisted alcohol or drug abuse programs. If such information is present, then the following federally mandated warning applies: This information has been disclosed to you from records protected by federal confidentiality rules (42 CFR part 2). The federal rules prohibit you from making any further disclosure of this information unless further disclosure is expressly permitted by the written consent of the person to whom it pertains or as otherwise permitted by 42 CFR part 2. A general authorization for the release of medical or other information is NOT sufficient for this purpose. The Federal rules restrict any use of the information to criminally investigate or prosecute any alcohol or drug abuse patient.The records that you are about to access may contain highly sensitive health information, the redisclosure of which is protected by Article 27-F of the [facility] Public Health law. If you continue you may have access to information: Regarding HIV / AIDS; Provided by facilities licensed or operated by the [facility] of Mental Health; or Provided by the [facility] Office for People With Developmental Disabilities. If such information is present, then the following [facility] mandated warning applies: This information has been disclosed to you from confidential records which are protected by state law. State law prohibits you from making any further disclosure of this information without the specific written consent of the person to whom it pertains, or as otherwise permitted by law. Any unauthorized further disclosure in violation of state law may result in a fine or mcc sentence or both. A general authorization for the release of medical or other information is NOT sufficient authorization for further disc losure. Allergies and Adverse Reactions Type Description Substance Reaction Status Data Source(s ) Drug allergy Sulfa (Sulfonamide Antibiotics) Sulfa (Sulfonamide Ant ibiotics) [facility] DRUG INGREDI SULFAGUANIDINE Sulfaguanidine [facility] SYSTEMIC NO ALLERGIES ON FILE NO ALLERGIES ON FILE [facility] Family History Family Member Name Family Member Gender Family Member Status Date o f Status Description Data Source(s) Unknown Condition [facility] Unknown Condition [facility] Unknown Condition [facility] Unknown Condition [facility] Unknown Condition [facility] Unknown Condition [facility] Unknown Condition [facility] Unknown Unknown Problem MEDENT ([facility]) Encounters Encounter Providers Location Date Indications Data Source(s ) OUTPATIENT 5F-ONINF 09/29/2020 10:19:33 AM [facility] OUTPATIENT 5F-ONINF 09/29/2020 09:33:17 AM [facility] Outpatient Attender: RL SANTAMARIA MDReferrer: Danielle Robbins NP 09/29/2020 09:19:00 AM EST - 09/29/2020 10:29:00 AM [facility] Outpatient Attender: RL SANTAMARIA MD 09/28/2020 09:38:00 AM EST preop,C50.909,Z01.818 [facility] preop,C50.909,Z01.818 [place] [address] [facility] [address] 09/27/2020 12:00:00 AM EST eCW1 ([facility]) OUTPATIENT 5F-OMAR 09/20/2020 10:07:24 AM [facility] Outpatient Attender: JOSEMANUEL NGUYEN MDReferrer: JOSEMANUEL LIANG MD 5F-FPS 09/15/2020 01:36:16 PM EST - 09/15/2020 11:59:00 PM [facility] Patient discharged. Unknown [address] [facility] [facility] [address] 09/13/2020 12:00:00 AM EST eCW1 ([facility]) Attender: JOSEMANUEL NGUYEN MD 5F-OMAR 09/08/2020 05:49: 47 PM [facility] Attender: JOSEMANUEL NGUYEN MD 5F-OMAR 09/06/2020 02:02: 09 PM [facility] Attender: JOSEMANUEL NGUYEN MD 5F-OMAR 09/06/2020 09:17: 09 AM [facility] Attender: JOSEMANUEL NGUYEN MD 5F-OMAR 09/06/2020 07:42: 47 AM [facility] Attender: JOSEMANUEL NGUYEN MD 5F-OMAR 09/01/2020 03:58: 13 PM [facility] Outpatient Attender: Danielle Padillaerrer: Danielle Robbins NP 08/26/2020 12:31:00 PM [facility] 08/26/2020 03:03:00 PM [facility] OUTPATIENT 5F-OMAR 08/26/2020 10:25:12 AM [facility] Attender: JOSEMANUEL NGUYEN MD 5F-OMAR 08/25/2020 09:04: 47 AM [facility] [place] [address] [facility] [address] 08/25/2020 12:00:00 AM EST eCW1 ([facility]) [place] [address] [facility] [facility] [address] 08/24/2020 12:00:00 AM EST eCW1 ([facility]) OUTPATIENT 5F-IV 08/20/2020 05:33:05 PM [facility] [place] [address] [facility] [address] 08/20/2020 12:00:00 AM EST eCW1 ([facility]) Unknown [address] [facility] [place] [address] 08/20/2020 12:00:00 AM EST eCW1 ([facility]) OUTPATIENT Attender: JOSEMANUEL NGUYEN MD 5F-OMAR 08/19/2020 02:42: 52 PM [facility] Attender: JOSEMANUEL NGUYEN MD 5F-OMAR 08/19/2020 02:28: 28 PM [facility] Attender: JOSEMANUEL NGUYEN MD [facility] 08/19/2020 11:56: 38 AM [facility] Outpatient Attender: JOSEMANUEL NGUYEN MDReferrer: JOSEMANUEL LIANG MD [facility] 08/18/2020 03:37:25 PM [facility] 08/18/2020 04:55:[address] 08/16/2020 02:48:23 PM [facility] Attender: JOSEMANUEL NGUYEN MD [facility] 08/09/2020 12:49: 26 PM [facility] [place] [address] [facility] [address] 07/30/2020 12:00:00 AM EST eCW1 ([facility]) Outpatient Attender: Danielle Camachoeferrer: Danielle Robbins NP 07/29/2020 03:18:00 PM [facility] [address] [facility] [address] 07/29/2020 12:00:00 AM EST eCW1 ([facility]) [place] [address] [facility] [address] 07/28/2020 12:00:00 AM EST eCW1 ([facility]) [place] [address] [facility] [address] 07/26/2020 12:00:00 AM EST eCW1 ([facility]) [place] [address] [facility] [address] 07/21/2020 12:00:00 AM EST eCW1 ([facility]) [place] [address] [facility] [address] 07/20/2020 12:00:00 AM EST eCW1 ([facility]) [place] [address] [facility] [address] 07/14/2020 12:00:00 AM EDT eCW1 ([facility]) Outpatient Attender: TITO CASTANEDAeferrer: Cass little CASAC 07/05/2020 01:52:41 PM EDT [facility] Recurring Patient Referrer: TITO BALLARD 07/02/2020 08 :48:15 AM EDT [facility] Outpatient Attender: Danielle Camachoeferrer: Danielle Robbins NP 07/01/2020 02:23:00 PM EDT - 07/01/2020 04:04:00 PM EDT [facility] Recurring Patient Referrer: TITO BALLARD 06/30/2020 01 :47:13 PM EDT [facility] Recurring Patient Referrer: Cass Gonsales CASAC 06/30/2020 01:43:02 PM EDT [facility] [place] [address] [facility] [address] 06/30/2020 12:00:00 AM EDT eCW1 ([facility]) [place] [address] [facility] [address] 06/28/2020 12:00:00 AM EDT eCW1 ([facility]) Outpatient Admitter: Candice Hernandezerrer: Candice Reece 06/22/2020 12:00:00 AM EDT Malignant neoplasm of unspecified site of unspecified female breast [facility] Malignant neoplasm of unspecified site o f unspecified female breast Outpatient [address] [facility] [address] 06/21/2020 12:00:00 AM EDT eCW1 ([facility]) [place] [address] [facility] [address] 06/16/2020 12:00:00 AM EDT eCW1 ([facility]) Emergency Attender: Brant Jay MD 05/19 09:25:00 AM EDT - 06/11/2020 10:15:00 AM EDT [facility]. Preadmit Attender: Danielle Robbins NP 06/11/2020 12:00:0 0 AM EDT Z09,F32.9,R53.83,R23.8 [facility] Z09,F32.9,R53.83,R23.8 [place] [address] [facility] [address] 06/03/2020 12:00:00 AM EDT eCW1 ([facility]) Outpatient Attender: Danielle Robbins NPReferrer: No Family Doctor Provided 06/02/2020 12:59:00 PM EDT - 06/02/2020 01:51:00 PM EDT [facility] Outpatient Attender: Yee Cook NP 05/12/2020 1 0:09:00 AM EDT RT BREAST LUMP N63.10 [facility] RT BREAST LUMP N63.10 Outpatient Attender: Yee Cook NPReferrer: No Family Doctor Provided 05/07/2020 02:10:00 PM [facility]T [facility]: Adair Jean IIReferrer: JAIME CLEMENTE MD 02/16/2020 11:30:18 AM EDT [facility] Outpatient Attender: Carolina Biggs NPReferrer: DANIAL ARRINGTON MD 01/05/2020 02:15:01 PM EDT [facility] Recurring Patient Attender: Carolina Biggs NPReferrer: Danial honeycutt MD 01/01/2020 11:10:42 AM EDT [facility] Recurring Patient Attender: Carolina Biggs NPReferrer: Danial honeycutt MD 10/13/2019 07:23:13 AM EST [facility] Immunizations Vaccine Date Status Description Data Source(s) New in 2011. IIV4 08/18/2020 12:00:00 AM EST completed In fluenza, injectable,quadrivalent, preservative free 08/18/2020 [facility] Medications Medication Brand Name Start Date Product Form Dose Route Admi nistrative Instructions Pharmacy Instructions Status Indications Reaction Description Data Source(s) Lidocaine 25 MG/ML / Prilocaine 25 MG/ML Topical Cream Lidocaine-Prilocaine 2.5- 2.5 % Lidocaine-Prilocaine 2.5-2.5 % 09/27/2020 12:00:00 AM EST active Lidocaine-Prilocaine 2.5-2.5 % e CW1 ([facility]) anastrozole 1 MG Oral Tablet anastrozole (ARIMIDEX) 1 mg chemo tablet anastrozole (ARIMIDEX) 1 mg chemo tablet 09/08/2020 12:00:00 AM EST 1 mg oral active Swallow whole with a drin k of water.1 TAB PO DAILY [facility] Alprazolam 0.25 MG Oral Tablet Alprazolam 08/26/2020 02:25:45 PM EST 0.25 MG active [facility] Alprazolam 0.25 MG Oral Tablet Alprazolam 08/26/2020 02:25:45 PM EST 0.25 MG active [facility] Sertraline 25 MG Oral Tablet sertraline (ZOLOFT) 25 mg tablet sertraline (ZOLOFT) 25 mg tablet 08/03/2020 12:00:00 AM EST 25 mg oral active Take 25 mg by mouth 1 (one) time each day. [facility] Sumatriptan 25 MG Oral Tablet Sumatriptan Succinate (I mitrex) 25 mg tablet Sumatriptan Succinate (Imitrex) 25 mg tablet 07/29/2020 04:08:22 PM EST 25 MG active [facility] Sumatriptan 25 MG Oral Tablet Sumatriptan Succinate (I mitrex) 25 mg tablet Sumatriptan Succinate (Imitrex) 25 mg tablet 07/29/2020 04:08:22 PM EST 25 MG active [facility] Sumatriptan 25 MG Oral Tablet Sumatriptan Succinate (I mitrex) 25 mg tablet Sumatriptan Succinate (Imitrex) 25 mg tablet 07/29/2020 04:08:22 PM EST 25 MG active [facility] Sertraline 25 MG Oral Tablet Sertraline 07/29/2020 04:07:13 PM EST 25 MG active [facility] Sertraline 25 MG Oral Tablet Sertraline 07/29/2020 04:07:13 PM EST 25 MG active [facility] Sertraline 25 MG Oral Tablet Sertraline 07/29/2020 04:07:13 PM EST 25 MG active [facility] Sumatriptan 25 MG Oral Tablet SUMAtriptan (IMITREX) 25 mg tablet SUMAtriptan (IMITREX) 25 mg tablet 07/29/2020 12:00:00 AM EST active TAKE 1 TABLET BY MOUTH AT THE ONSET OF THE HEADACHE IF NO RELIEF MAY REPEAT ONE TAB IN 2 HOURS. MAX DAILY DOSE IS 4 TABS [facility] Alprazolam 0.25 MG Oral Tablet Alprazolam 07/01/2020 03:47:24 PM EDT 0.25 MG completed [facility] Alprazolam 0.25 MG Oral Tablet Alprazolam 07/01/2020 03:47:24 PM EDT 0.25 MG active [facility] Alprazolam 0.25 MG Oral Tablet Alprazolam 07/01/2020 03:47:24 PM EDT 0.25 MG active [facility] Alprazolam 0.25 MG Oral Tablet Alprazolam 07/01/2020 03:47:24 PM EDT 0.25 MG completed [facility] Acetaminophen 300 MG / Codeine Phosphate 15 MG Oral Tablet Acetaminophen-Codeine Acetaminophen-Codeine 06/11/2020 10:03:49 AM EDT 1 TAB active [facility] Acetaminophen 300 MG / Codeine Phosphate 15 MG Oral Tablet Acetaminophen-Codeine Acetaminophen-Codeine 06/11/2020 10:03:49 AM EDT 1 TAB completed [facility] Acetaminophen 300 MG / Codeine Phosphate 15 MG Oral Tablet Acetaminophen-Codeine Acetaminophen-Codeine 06/11/2020 10:03:49 AM EDT 1 TAB active [facility] Acetaminophen 300 MG / Codeine Phosphate 15 MG Oral Tablet Acetaminophen-Codeine Acetaminophen-Codeine 06/11/2020 10:03:49 AM EDT 1 TAB completed [facility] Acetaminophen 300 MG / Codeine Phosphate 15 MG Oral Tablet Acetaminophen-Codeine Acetaminophen-Codeine 06/11/2020 10:03:49 AM EDT 1 TAB active [facility] Methylprednisolone Methylprednisolone (Medrol (Joel)) 4 mg tablets,dose pack Methylprednisolone (Medrol (Joel)) 4 mg tablets,dose pack 06/11/2020 10:03:10 AM EDT 0 active [facility] Methylprednisolone Methylprednisolone (Medrol (Joel)) 4 mg tablets,dose pack Methylprednisolone (Medrol (Joel)) 4 mg tablets,dose pack 06/11/2020 10:03:10 AM EDT 0 completed [facility] Methylprednisolone Methylprednisolone (Medrol (Joel)) 4 mg tablets,dose pack Methylprednisolone (Medrol (Joel)) 4 mg tablets,dose pack 06/11/2020 10:03:10 AM EDT 0 active [facility] Methylprednisolone Methylprednisolone (Medrol (Joel)) 4 mg tablets,dose pack Methylprednisolone (Medrol (Joel)) 4 mg tablets,dose pack 06/11/2020 10:03:10 AM EDT 0 active [facility] Methylprednisolone Methylprednisolone (Medrol (Joel)) 4 mg tablets,dose pack Methylprednisolone (Medrol (Joel)) 4 mg tablets,dose pack 06/11/2020 10:03:10 AM EDT 0 completed [facility] Acetaminophen 300 MG / Codeine Phosphate 15 MG Oral Tablet acetaminophen-codeine (TYLENOL #2) 300-15 mg per tablet acetaminophen-codeine (TYLENOL #2) 300-1 5 mg per tablet 06/11/2020 12:00:00 AM EDT active [facility] Sertraline 25 MG Oral Tablet Sertraline 06/04/2020 11:29:07 AM EDT 25 MG completed [facility] Sertraline 25 MG Oral Tablet Sertraline 06/04/2020 11:29:07 AM EDT 25 MG active [facility] Sertraline 25 MG Oral Tablet Sertraline 06/04/2020 11:29:07 AM EDT 25 MG active [facility] Sertraline 25 MG Oral Tablet Sertraline 06/04/2020 11:29:07 AM EDT 25 MG completed [facility] Sertraline 25 MG Oral Tablet Sertraline 06/04/2020 11:29:07 AM EDT 25 MG completed [facility] Sertraline 25 MG Oral Tablet Sertraline 06/02/2020 01:42:33 PM EDT 25 MG completed [facility] Sertraline 25 MG Oral Tablet Sertraline 06/02/2020 01:42:33 PM EDT 25 MG completed [facility] Sertraline 25 MG Oral Tablet Sertraline 06/02/2020 01:42:33 PM EDT 25 MG completed [facility] Sertraline 25 MG Oral Tablet Sertraline 06/02/2020 01:42:33 PM EDT 25 MG completed [facility] Sertraline 25 MG Oral Tablet Sertraline 06/02/2020 01:42:33 PM EDT 25 MG completed [facility] Sertraline 25 MG Oral Tablet Sertraline 06/02/2020 01:42:33 PM EDT 25 MG active [facility] Ibuprofen 800 MG Oral Tablet Ibuprofen 07/09/2018 05:28:00 PM EDT 800 MG completed [facility] Ibuprofen 800 MG Oral Tablet Ibuprofen 07/09/2018 05:28:00 PM EDT 800 MG completed [facility] Ibuprofen 800 MG Oral Tablet Ibuprofen 07/09/2018 05:28:00 PM EDT 800 MG completed [facility] Ibuprofen 800 MG Oral Tablet Ibuprofen 07/09/2018 05:28:00 PM EDT 800 MG completed [facility] Ibuprofen 800 MG Oral Tablet Ibuprofen 07/09/2018 05:28:00 PM EDT 800 MG completed [facility] Ibuprofen 800 MG Oral Tablet Ibuprofen 07/09/2018 05:28:00 PM EDT 800 MG completed [facility] Insurance Providers Payer name Policy type / Coverage type Policy ID Covered alliance party ID Covered alliance party's relationship to kellogg Policy [employer] Plan Information [employer] COMM[employer] MCDHMO [id number] SP [id number] [facility] MEDICAID [id number] Self [id number] [facility] MEDICAID [id number] [facility] O [id number] S [id number] [employer] COMM[employer]ITY PLAN MCDHMO [id number] SP [id number] [employer] COMM[employer]ITY PLAN MCDHMO [id number] SP [id number] [facility] I [id number] Self [id number] [facility] I [id number] Self [id number] [place] [id number] SP [id number] STATE INSURANCE FUND [id number] SP [id number] [employer] COMMUNITY PLAN MCDHMO [id number] SP [id number] [facility] Comm Plan Medicaid F [id number] SELF [id number] [facility] Communty Plan Medicaid [id number] Self 10 [id number] [facility] Communty Plan Medicaid [id number] Self 10 [id number] [facility] COMMUNTY PLAN MC [id number] 18 [id number] [employer] COMMUNITY PLAN XIX MC [id number] 18 [id number] [facility] Comm Plan Medicaid F [id number] SELF [id number] [facility] Communty Plan Medicaid [id number] Self 10 [id number] [facility] Comm Plan Medicaid F [id number] SELF [id number] [employer] AMERICHOICE XIX HMO [id number] 18 [id number] AMERICHOICE UNHC XIX HMO -RECURRING [id number] [facility] MEDICAID [id number] Yvonne [id number] MEDICAID [id number] SP [id number] [employer] [facility] [id number] SELF PAY 2 UNAVAILABLE 1 UNAVAILA BLE STATE INS FUND CLAIMS [id number] [employer] BLUE SHIELD-O/P [id number] STATE INS FUND CLAIMS [id number] STATE INS FUND [id number] [facility] INS FUND-RECURRING [id number] BLUE CROSS BLUE SHIELD-O/P [id number] Problems, Conditions, and Diagnoses Code Display Name Description Problem Type Effective Dates Data Source(s) C50.911 [id number] Malignant neoplasm of unspecifie d site of right female breast Problem 07/14/2020 12:00:00 AM EDT eCW1 ([facility]) C50.911 [id number] Malignant neoplasm o f right female breast, unspecified estrogen receptor status, unspecified site of breast Problem 1 12:00:00 AM EDT eCW1 ([facility]) F17.200 [id number] Smoker Problem 06/22/2020 12:00:00 AM ED T eCW1 ([facility]) R91.1 Solitary pulmonary nodule Solitary pulmonary nodule Di agnosis 09/15/2020 01:36:16 PM [facility] C50.919 Malignant neoplasm of unspecified site o f unspecified female breast Malignant neoplasm of unspecified site of unspecified female breast Diagnosis 08/18/2020 03:37:25 PM [facility] C50.919 Malignant neoplasm of unspecified site o f unspecified female breast Malignant neoplasm of unspecified site of unspecified female breast Diagnosis 06/22/2020 11:15:00 AM [facility] Surgeries/Procedures Procedure Description Date Indications Data Source(s) Plain chest X-ray (procedure) 09/28/2020 10:16:00 AM E [facility] PET IMAGING CT ATTENUATION SKULL BASE MID-THIGH PET/CT SKUL L BASE TO MID THIGH STAT 09/15/2020 3:11 PM EST Lung nodule seen on imaging study 09/15/2020 03:11:39 PM EST Lung nodule seen on imaging study [facility] Lung nodule seen on imaging study Ultrasonography of breast (procedure) 05/12/2020 11:11 :00 AM [facility] Ultrasonography of breast (procedure) 05/12/2020 11:11 :00 AM [facility] Ultrasonography of breast (procedure) 05/12/2020 11:11 :00 AM [facility] Ultrasonography of breast (procedure) 05/12/2020 11:11 :00 AM [facility] Ultrasonography of breast (procedure) 05/12/2020 11:11 :00 AM [facility] Ultrasonography of breast (procedure) 05/12/2020 11:11 :00 AM [facility] 3D DIG MAMMO DIAG ELVIS 05/12/2020 10:33:00 AM [facility] 3D DIG MAMMO DIAG ELVIS 05/12/2020 10:33:00 AM [facility] 3D DIG MAMMO DIAG ELVIS 05/12/2020 10:33:00 AM [facility] 3D DIG MAMMO DIAG ELVIS 05/12/2020 10:33:00 AM [facility] 3D DIG MAMMO DIAG ELVIS 05/12/2020 10:33:00 AM [facility] 3D DIG MAMMO DIAG ELVIS 05/12/2020 10:33:00 AM [facility] Results ID Date Data Source [id number] 09/30/2020 10:00:00 AM EST [facility] Name Value Range Interpretation Code Description Data Octavia rce(s) Supporting Document(s) SARS coronavirus 2 RNA Not Detected [facility] This lab was ordered by [facility] and reported by [facility]. ID Date Data Source [id number] 09/29/2020 11:14:54 AM EST [facility] Name Value Range Interpretation Code Description Data Octavia rce(s) Supporting Document(s) Telephone Encounter [facility] [id number]/[id number]jDJbAwZuWuEJEi lbm [file] [id number]= ID Date Data Source [id number] 09/29/2020 10:21:02 AM EST [facility] Name Value Range Interpretation Code Description Data Octavia rce(s) Supporting Document(s) Telephone Encounter [facility] [id number]/PDImtCFMpk4FjNXnmJIp6WMeoYIFiG6AfSLX4yQ9sTIP3NEgLYmXlJaJoHCMk lbm RzCjzITxLmKEGtGckMDpXnMDouIpehhCBbHP6LkCN9EZXeC48ePRWqXZCxC3DuHMv7HQ5+KKwhQCP1bx InyK1TOVVVRLTS5wDJcm+0/5IXT1HUebOWKfJnkdQxOXJw8ol4AAjMHwqapfEI9zvZzRCrUluGebUdDC nd+moetch2gEWf0tuPvB3IJbM/7yAIMYkp0T7d4Oqg uuBcSpFdkHIUHWf5KS421NBLApO6pRArqGLYu3DkSyRTOhW8rh0pFoxGQY/9fyUHdglhK9ZDNXBvKVV9 GGbWdVNWHAxmwoYpBbRB06WOWQ8NylbAagPhQRzMKM6PofwSD2s1ttNRWiXqEmYqG9W0MOIWEB3r8MKL 6uAOeR16Ks6PQ2eikwJ3dvNEjNM7rKA/NFleFuM5fi 6PxNmdykYfZHllu1jlikOG67SpOIExhCjgH5wGOGL9UxelE9hWxffSmkBkfqvhYUT5xWMjdRyUUciCvC vOMwrYt2ySp5q8N+/AroyRVFL4YjcaOsyGEzVInrb35NKQVh/IxKoCLFWJkYUf15OJSCDZoo2+RZxEGY kFzX9uJ6OqdI9pGgeGO5Ygp75wxPz3TP6f0clpbn6k QXvEhziFdztngHh9g95Y+Caroline+9AbNUqmgN2/eP7M0mjwTiwNR/mDdribRqknFsaKS2IsY3X3wHWC/Gr [file] AgICAgICAgICAgICAgICAgICAgICAgICAgICAgICAgICAgICAgICAgICAgICAgICAgICAgICAgICAgIC JvBKHrBD9LQUUyTXAcHCFuRKAwSQDzWUYtSBPfTLAx ICAgICAgICAgICAgICAgICAgICAgICAgICAgICAgICAgICAgICAgICAgICAgICAgICAgICAgICAgICAg WAVlPJKiXGIsSGPpGQZbOI0HGSSeSUHqEAFwQONdCUQzKGTiDEDaHILoGTMjYXLdZMLkCWMzDSJbSIJw ICAgICAgICAgICAgICAgICAgICAgICAgICAgICAgIC MtRECbJVCqGLAcXZLxGBEeBGAkXHTkGJRsDF5EJUOlCREzHWBdVWQsJHHySURuRUHsVIItEUDsXYGnOF AgICAgICAgICAgICAgICAgICAgICAgICAgICAgICAgICAgICAgICAgICAgICAgICAgICAgICAgICAgIC ViLJZrMUUiGL8QGSGnMSEdHCJxORGgISVoYGFzFQIp ICAgICAgICAgICAgICAgICAgICAgICAgICAgICAgICAgICAgICAgICAgICAgICAgICAgICAgICAgICAg FLNhHYHgBTNpPRMrBJOxKILbCN5VLQCrCAQcSHPpVQPaBRQpTLFjLMHbKYFdSHSdYBHoWMOlNXQjNTBc ICAgICAgICAgICAgICAgICAgICAgICAgICAgICAgIC TaHBPnYHUvUDGwNUObFYLmDQLyJJReZMBgMYMvHW1JCEIqDDXkMLIqDTJdSBKoAAOaXORdVIJhZGIqTO AgICAgICAgICAgICAgICAgICAgICAgICAgICAgICAgICAgICAgICAgICAgICAgICAgICAgICAgICAgIC MqPQMaNNBxSVEhDM7GWYHcLFWiCTLpJXGaUVNrIJIg ICAgICAgICAgICAgICAgICAgICAgICAgICAgICAgICAgICAgICAgICAgICAgICAgICAgICAgICAgICAg OTIgLIRbHWRgMMRzYYLaNQKnLFAzED9AHNLzSXAoHCIkOBBhVKBhVGQdYVEpYPRjUARzGTQsLFOsXIRx ICAgICAgICAgICAgICAgICAgICAgICAgICAgICAgIC JuKAYyBLPbUMKrKWShNDPhDOWnPCUmFMJsAGXhLUCuZC6LBVPtMVUdFIHuIFPgWUTkQDNjYMPdCNIsUX AgICAgICAgICAgICAgICAgICAgICAgICAgICAgICAgICAgICAgICAgICAgICAgICAgICAgICAgICAgIC TaUQQmLYRbYNByMXStHY4UUQ27zONpz9Z5VQFnVE7i dyc/Ld4KQEgjiuNqwLKuTH0NQhXsAW7kax6VEoClVJ8psj1PRJcGUvZzP6Z9cZXwTIYmWQVVImYbO98a DNlhLi05XVapZRNmFlQzTBh8Fb3NWhHgI3wzNSSuFeC2YXUoJhEeXSivDT2Gr7VmcLJaENl+Jn8BOR8q t2MfTMshCcCmSX0rjk3BEEhCVzEtJ4WmulX4WGLeZM JqMc7HKBWfUWNrqOCwAtSqDUBYPrRsR0RtqD82VWXEQn6+NLsvnjYbNjpMUpXnEKPvb3VvQMb8VG8EAP MdKHb6oENhEUCyFBJsw57xXXNrW995whBbymVseZCZNShtvpIWzNUaGD35PLmwBb1uRCJxXB5cEp3qKQ MaUTCrEvS7XGPKHI3GGYAoXMMkiNGwQOXjJHHDKX7T SEzqHMH0GeiwedDfbDYnVZgwWK6TWKWohfAaBqAhQMXCIFo+Hd0UOV1jo6LeJHgfCAEcLG2vxs9QUSwL MrSiW4N8nENzT6C2CMbeDe9WFWGgSAKlRiCbTNDNZLqwBY2QMG3yyvA6WR2GyADuPWPgIPSggSFvIHn6 N84gaWAsKOevDP2BMZT+Mehdi+Sq4XXNIaESBkVYHeRu QkTRZABbXxA3MlB5AHk6RfI8ZkSZ99xEzpkhKtDWcxMA5NCF3cZGBpTYVLBM3MlQNhoF7ibmPsDwOrUV FICdXtN89jvDQlBRWjIKEaMXQbMf0BVVFyO9AntwNjmDdavmXqYTHiJCLVAQ7CNSdysqGutKRwnUeyHI 93fHviSJ4QTk2RLnXfZR5dim4QiQVtLx7TDNCvJS9G ULAlXSJdUQPsZWX5HUZdJfTaGOswCUIfPNNfTCY9QTCgZSNhEJ4AWcNsTQOlPGj9BCPiOKHfOVHhho0E VXMtBYGxAVAoZHCaAQLjVWTeLNodENJvZFOkXTZ9MIIzVDFkRS1MLeMyNZOfRMOvSwRqVCPrIYBlna7Y BTEmZCUdMFGnPLDwFYEcWDTwQMiuZLFcEBKbGok4YV UrDSBlUT9RUsEyCMKbCRJ6VIepICQgBIGlsu6RYYBoQTBlThA2DESeAWBzXEBjFFkgUZVpEOZtXkQyUL IrWMWxDY1OIfEgWCMoBJJ2BbKnXVOmPCKoef5QTTZnNSLzLONvTiHgDNPqAAFbUBksDIQbSPB6GnLaVD OxMFIqVA0ADnIeLPHkYDW2GvnvQWIvWWInoy4ISIBo ODOkWqy4WwMuDQJbWJKfVKzgCGOeGCL0INU5JONpTYHfRF2KQmWnEYYzVMgfEbBxUACsBLJwzz0FROWw VCStSZNgAAPyLERzHEQdKQgzRLBvEOH7Jsa9CWAkHFCrVR4HRvDmZJExUQz9BqPdTNIqOMEicq7MRRAb OSJqUVp8HJTaYCFkFNJiTAgxTIIpPHHmOBJ9EDUaRM EbMZ9AHfEsPMZzYrV5UOhpWGSwGRKwia0PFWHwDCBzIYP9DNYlZPYtNOToEZa6vtMlnPPgGJe9CD9TP6 DwdjJwAxNIHz2Rj492TRT4BOOiQq5HU5ooHw2gGOTtVBHBSb7OFWu7O6AuJmC9SHTmSPXuPlW8QSe8Ri RjOEV5DZH1YuVyE8C+CMvlWDIhSEuuZRJ6UYB2PxT5 FPwkDcWoIdz3YhIyXcEsNl7lPVSGUw0+GNrcrRFvtJxeFTETXnRfYPu6MXivBZQUMr0I ID Date Data Source [id number] 09/29/2020 10:03:16 AM EST [facility] Name Value Range Interpretation Code Description Data Octavia rce(s) Supporting Document(s) Telephone Encounter [facility] IEPCSy5jMfHVDuTi75/AMWqhXIQgz8QoXEhyZPr1HHzcIYPlO5MkCQN3cX5qQQG9MNfVCbZbOaZkFLHa lbm [file] ICAgICAgICAgICAgICAgICAgICAgICAgICAgICAgIC AgICAgICAgICAgICAgICAgICAgICAgICAgICAgICAgICAgICAgICAgICANCiAgICAgICAgICAgICAgIC AgICAgICAgICAgICAgICAgICAgICAgICAgICAgICAgICAgICAgICAgICAgICAgICAgICAgICAgICAgIC AgICAgICAgICAgICAgICAgICAgICAgICANCiAgICAg ICAgICAgICAgICAgICAgICAgICAgICAgICAgICAgICAgICAgICAgICAgICAgICAgICAgICAgICAgICAg ICAgICAgICAgICAgICAgICAgICAgICAgICAgICAgICAgICANCiAgICAgICAgICAgICAgICAgICAgICAg ICAgICAgICAgICAgICAgICAgICAgICAgICAgICAgIC AgICAgICAgICAgICAgICAgICAgICAgICAgICAgICAgICAgICAgICAgICAgICANCiAgICAgICAgICAgIC AgICAgICAgICAgICAgICAgICAgICAgICAgICAgICAgICAgICAgICAgICAgICAgICAgICAgICAgICAgIC AgICAgICAgICAgICAgICAgICAgICAgICAgICANCiAg ICAgICAgICAgICAgICAgICAgICAgICAgICAgICAgICAgICAgICAgICAgICAgICAgICAgICAgICAgICAg ICAgICAgICAgICAgICAgICAgICAgICAgICAgICAgICAgICAgICANCiAgICAgICAgICAgICAgICAgICAg ICAgICAgICAgICAgICAgICAgICAgICAgICAgICAgIC AgICAgICAgICAgICAgICAgICAgICAgICAgICAgICAgICAgICAgICAgICAgICAgICANCiAgICAgICAgIC AgICAgICAgICAgICAgICAgICAgICAgICAgICAgICAgICAgICAgICAgICAgICAgICAgICAgICAgICAgIC AgICAgICAgICAgICAgICAgICAgICAgICAgICAgICAN CiAgICAgICAgICAgICAgICAgICAgICAgICAgICAgICAgICAgICAgICAgICAgICAgICAgICAgICAgICAg ICAgICAgICAgICAgICAgICAgICAgICAgICAgICAgICAgICAgICAgICANCiAgICAgICAgICAgICAgICAg ICAgICAgICAgICAgICAgICAgICAgICAgICAgICAgIC AgICAgICAgICAgICAgICAgICAgICAgICAgICAgICAgICAgICAgICAgICAgICAgICAgICANCjw/eHBhY2 fhlMUxacB6Y9xiLm4GJc8GPE7xj3KdYKYxIQqihsSxQoaYAxYjATApClnNYxg6BXwrSQ6ByEPgM1FtW6 AhSOgsIN1EMZSjDEUwyPZrKGAxRWSiCtU2UIIsWYti LN3UpWJhCUddVRIgACThVC1DLNIyG219wtSeHC8CSu6JViVkNZ3tni9WEwDsJBLnSxsKDgx3AUgvIS1H yMBtwSRhBoAmZQWXOsOdC7dui3MuKxJsKXEUZRsfEK3Dw5DzyERlADu+Zc7YDC2bs3CzXNwaExQbIQ6c qt2NIDnZNqGjB2HvkRjnQNQzhSQswQ5kGHWUwuQplM 03URPpHcrrR0RzN4Q4VTnoa9wkrPxpGYSODJVwvQHkMqCsIuXlYtUqEGX0RCSbGB8sAHihOK7CACH1ZE roGJGiIWJvY7jSMyWiJLtxRMOthVfyCG4VVoMgR2GfgkYbgIGvJrDnXNGGMz0+ABsmdnOvLznBMuC4CP Gmb1IxLYq8ON0ZBDExCNggGY8MOBWrkM3kXNtwKH4S PzJwCCTyMBMHBmZvL68dnLLdNGd3P7FnPiXaZRHvJmdzNKPbWXqzNdKmVGHaAhCiJIbdLX1+ID4+DQog ES3KCBjosyPiLDIiQu4ZPIEoYSCdTP7gFGAeJCQcN3R7nYdxKFFAOiMeR6geruaxGT2pNTTnD334iRhg xvLaNTBbTWEuHx2XCRDwZBZ0PKFduNHaYwAsUTGFSR lvOY5InXKxEDF9xH9hGYlcRNKxPCViT8jLXdDzvJoyQH16nPkehfKqsKIvSRf+Iv8SEJ2yz2EvJEs6ca OcHCqaTCU0RUvdSANbWXGrZUVlVTO2TCY6DBQZMlGqQKHxWFFzIZpzRAEbEFMtso3ASMQdIRErNRHyGC PyVJDbISSbLQpbMDQfWIOpQkR4EZFxEVDbAH4ZRkWy DJCmEHAfFQtxZEFtNTHjca7ISPFpEYWmUAQ8HdNzYIKkXPMoHSscVOOxVARpAcT0LEPaVDLpNP5CYpHb UCYnSSLbBKXyAXKyWJZgps6DJZCcAKNfExLzByMyGMHlNUJlXWbhTJWwMITeZPzmAKLhOAXdAG0BJwOn RLJzTYW9QUImXCQaGWJzky9MCVPkDHIbMdb9PjGwHP KdNLYtBEowBJEmDSYqCWD0AOKjFVWnBJ0QFkItVQWfYXUbZarcQKHbFWVifo5JDBMdBKYgVhN1QWTpWT QbJXCpIVwdARDkRTQ1BERuGCVqBODuSW1XBjVyJRXwIAnwXSLuVLHjPTYcfq4YQRJuSRNrIuS0WBJfPL BrCFMnHFtqRQYgVHR0UXXtKOFcQNJyHZ9IUkTwCKPm FIhhHPQsIUDxOWIzzy2ZEBZfSVKaILA3ZABiDPAwEBZqDSgiKSKuXUF3MHT4UTUsVMBvVI3KFnTqVTPy MeGbOULmFTAtLRSypy0JUABsJGTpFPZuXCGzGLReSYPzWLkbUHCvIBSgISU4NVGtRKJkBS3AYmSlZAiw WEXSSrq3KNoqX1t1NSMgUZ4EL5Fsi9ZgGiKlMHNDEY lqMU7ohyOxPMDrIi7NB1xJBrmrJABqLVU1Ceq8WlY6LcNgFgE5Q5NbWjXgNoB9GTJpXC8iYLC6FhCbQB ouZoUuYOobNbG5NXb2NqXpSnX3GOPsY5T2NbJrKC1ABe2OBbF3FIK7eRWxWu3MJyG8EXWGQlHcDQ1CEA o= ID Date Data Source [id number] 09/29/2020 09:34:45 AM EST [facility] Name Value Range Interpretation Code Description Data Octavia rce(s) Supporting Document(s) Telephone Encounter [facility] MQRIGd2kFbNLXkUy69/SAUeyAQGrt3OgWLcdFDn9VUziNKEtT4PgQCG1rI9aNSU6UOvJYqMzQgRvCBXb lbm [file] NvVcBfOQswWzyxBKw4RbAyRRC6ElYgHpLlOW7VEu0UJeH5SBU6uALvJp0BOkU7QqVMJsMmNS5BZPo= ID Date Data Source [id number] 09/29/2020 09:33:00 AM EST [facility] Patient Name: BRIDGER ARAUJO : 1960 Sex: F Pt Unit #: [id number] Location:[place] Provider: Visit Date/Time: 09/29/20 Primary Insurance: [facility] Secondary Insurance: Self Pay Intake Vital Signs 09/29/20 09:33 Current Height 5 ft Current Weight 122 lb 4 oz Weight Measurement Method Standing Scale BMI 23.8 BP 100/64 Blood Pressure Location Lt brachial Position Sitting Respiration 16 Pulse 52 L Pulse Source Pulse Oximeter Temp 97.6 F Temp Source Oral Pulse Oximetry (%) 97 Intake Visit Reasons: Pre-operative H P Nurse Note: 59 year old female here for pre-op for lumpectomy on her right breast. Is scheduled 10-05-2020 with at [facility]. Pt. has questions regarding this surgery and is waiting to get answers from that Painting Manager Required: No Accompanied by: Self / Same as Patient Is patient in pain?: No Allergies Sulfa (Sulfonamide Antibiotics) Allergy (Verified 09/29/20 09:58) Medications - Last Reconciled 09/29/20 by Rl Santamaria DO alprazolam 0.25 mg PO TID MDD 3 sertraline 25 mg PO QDAY sumatriptan succinate (Imitrex) take 1 tab at onset of headache; if no relief may repeat 1 tab in 2hr; max = 4 tabs/day (24hr) PO 25 mg Fall Risk History of falls: No Ambulatory Aid:: None Gait/Transferring:: Normal Medications:: No High Risk Medications HIV Testing Offer - ages 13-64 HIV testing Offer: Yes Requirement for HIV testing offer been met?: Patient reports past refusal Do you need a note to return Do you need a note to return to daycare/school/sports/work: No Coronavirus Screening Screening Have you traveled outside of [facility] or [facility] in the last 14 days.: No Has patient experienced coronavirus symptoms: No [facility] History (Updated 09/29/20 @ 17:12 by Rl Santamaria DO) Breast mass, right pneumococcal 23-alonso ps vaccine Performing Provider: Rl Santamaria DO Administered by: Leigh Win on 09/29/20 10:50 Surgical History section History of - surgery History of - surgery Family History Mother Hyperlipidemia Father Alzheimer disease Social History Does the Patient have a Healthcare Proxy: No Does Patient have a DNR?: No Does Patient have a Living Will?: No Hx Recent Travel (where): No Smoking Status: Current every day smoker HPI Pre-Operative H P right lumpectomy, lymph nodes dissection Surgery Information Date of surgery: 10/05/20 Surgeon: dr. Coleman Anesthesia: general Covid Screening Pre-Op Covid testing ordered?: No Exercise tolerance Can climb one flight of stairs (12-13 steps) in less than 30 seconds without stopping and without symptoms: Yes Distance able to walk (blocks): 20 Risk factors Active cardiac conditions: none Active risk factors: smoking Sleep apnea risks: No Pertinent Past History Previous surgical complications: No Previous anesthesia intolerance: No Steroid use in last 6 months: No Allergies to meds or foods: Yes Other relevant history:: sulfa - hives Pertinent Family History Family hx adverse reaction to anesthesia: No Family history coagulopathy: No Menstrual History Menopausal?: Yes ?: No Nursing?: No Review of Systems Const Reports system reviewed and no additional complaints, except as documented Eyes Reports system reviewed and no additional complaints, except as documented ENT Reports system reviewed and no additional complaints, except as documented Card Reports system reviewed and no additional complaints, except as documented Resp Reports system reviewed and no additional complaints, except as documented GI Reports system reviewed and no additional complaints, except as documented Genitourinary: Reports system reviewed and no additional complaints, except as documented Musc Reports system reviewed and no additional complaints, except as documented Skin/Breast Reports as per HPI Neuro Reports system reviewed and no additional complaints, except as documented Psych Reports system reviewed and no additional complaints, except as documented Endo Reports system reviewed and no additional complaints, except as documented Dontrell/Lymph Reports as per HPI Aller/Immun Reports system reviewed and no additional complaints, except as documented Exam Const General: cooperative, healthy appearing, no acute distress, well developed and well groomed Nutritional Appearance: well nourished Orientation: alert, awake and oriented x3 HENMT Head: normal to inspection, normocephalic and atraumatic Ears: hearing grossly normal bilaterally General nose exam: external nose normal Face and sinus: normal facial exam Mouth: oral mucosae normal, lip normal and tongue normal Teeth and gingiva: dentition normal and gingiva normal Throat: posterior oropharynx normal Eyes General: appearance normal, both eyes and all related structures Periorbital: periorbital findings normal Eyelids: eyelids normal Conjunctivae: conjunctivae normal Sclera: sclerae normal Pupils: PERRL EOM: EOM intact bilaterally Direct ophthalmoscopy: normal light reflex Neck Neck: normal visual inspection, full ROM, no lymphadenopathy, supple and no JVD present Neck mass: No Thyroid: thyroid normal Carotids: normal carotid upstroke Resp Effort Inspection: normal respiratory effort Auscultation: clear to auscultation bilaterally Percussion: percussion normal Cardio Jugular venous pressure: no JVD Palpation: normal PMI Rate: bradycardic Rhythm: regular rhythm Heart Sounds: S1 normal and S2 normal Pulses: normal peripheral pulses GI Inspection: Yes normal to inspection Palpation: soft Auscultation: normal bowel sounds General: deferred Musc Cervical Spine: normal cervical lordosis and cervical ROM normal Thoracic/Lumbar Spine: thoracic and lumbar spine normal to inspection, thoraco-lumbar ROM normal andstraight leg raise negative bilaterally Pelvis: no pain with anterior- posterior compression and no pain with lateral compression Skin Lesions: no lesions Rashes: no rashes Hair: normal Nails: normal Neuro General: patient alert, patient awake, patient oriented x3, gait normal, moves all extremities and normal light touch, pain and propioception Cranial Nerves: CN's II-XII intact bilaterally Cognition: normal cognition Speech: speech normal Gait: normal gait Motor: muscle tone normal throughout and strength 5/5 throughout Sensory Exam: no sensory deficits noted Extrem General: normal to inspection, full ROM, capillary refill normal, no clubbing, cyanosis or edema andno muscle atrophy Psych Appearance: grossly normal and well kempt Mental Status: mental status grossly normal Speech and Movement: speech and movement normal Affect: normal affect Attitude: cooperative Thought Process: normal Thought Content: normal Insight: insight good Judgment: judgment good Immunizations pneumococcal 23-alonso ps vaccine Performing Provider: Rl Santamaria DO Administered by: Leigh Win on 09/29/20 10:50 Dose Route Admin Location Lot Number Expiration Date NDC Manufactu rer 0.5 mL IM Left arm [id number] 01/08/22 5911-9124-84 [employer] D VIS Given Date VIS Provided VIS Publication Date 09/29/20 Single Vaccine 19 Eligibility Eligibility Date Funding Source Not [facility] Eligible 09/29/20 Private Assessment Plan Assessment Plan (1) Pre- Operative Examination: Code(s): Z01.818 - Encounter for other preprocedural examination Plan - Rl Santamarai, DO: reviewed labs, chest xray, and ekg compared old ekg march 2014 - sinus bradycardia , no ischemic changes patient is sufficiently medical stable to intermediate risk right breast lumpectomy and excision lymph nodes (2) Tobacco use disorder: Status: Chronic Code(s): F17.200 - Nicotine dependence, unspecified, uncomplicated Category: Medical Plan - Rl Santamaria DO: counseled about three minutes she agrees to pneumonia vaccine Orders Other Orders: Orders: INJ - Pneumovax Vaccine Today Z23 Follow Up: 1 (breast cancer) Coding Level of Care Code 59821 Est Pt Extended Comp Exam Detailed Diagnoses Pre-Operative Examination Z01.818 Tobacco use disorder F17.200 CPT Codes Tobacco counseling - 19262 (76727) Tobacco cessation counseling Second Hand Smoke Smoking Plan: Benefits of Quitting As soon as you quit, your body begins to repair the damage caused by smoking. See the health benefits you'll experience as soon as 20 minutes to 15 years after quitting. 20 Minutes After Quitting: Your heart rate drops to a normal level. 12 Hours After Quitting: The carbon monoxide level in your blood drops to normal. 2 Weeks to 3 Months After Quitting: Your risk of having a heart attack begins to drop. Your lung function begins to improve. 1 to 9 Months After Quitting: Your coughing and shortness of breath decrease. 1 Year After Quitting: Your added risk of coronary heart disease is half that of a smoker's. 5 to 15 Years After Quitting: Your risk of having a stroke is reduced to that of a nonsmoker's. Your risk of getting cancer of the mouth, throat, or esophagus is half that of a smoker's. 10 Years After Quitting: Your risk of dying from lung cancer is about half that of a smoker's. Your risk of getting bladder cancer is half that of a smoker's. Your risk of getting cervical cancer or cancer of the larynx, kidney or pancreas decreases. 15 Years After Quitting: Your risk of coronary heart disease is the same as that of a nonsmoker. Tobacco * Identify a support program or team. * Talk with my doctor about ways to quit smoking/tobacco use. Ask about the patch or o ther medicine to help. * Set a quit date * Tobacco-proofing you home and car. Remove cigarettes, lighters, matches, and ashtrays so there are no reminders of smoking. This can help reduce your urges to smoke. * Recognizing danger situations. Identify events, feelings, or activities that increase your desire to smoke or going back to smokingonce you have quit. Examples: Being around other smokers, having an alcoholic drink, or having a cup of coffee first thing in the morning. Help Numbers [facility] - Alcohol and Substance Abuse [place] [facility]- National Suicide Prevention Lifeline - 212-863-BBTH (1367) [facility] Smokers' Quitline - 9-003-IG-QUITS [facility] Smokers' Quitline - http://www.[employer] [facility] Quit Smoking - <Electronically signed by Rl Santamaria DO> 09/29/20 1713 Name Value Range Interpretation Code Description Data Octavia rce(s) Supporting Document(s) ID Date Data Source [id number] 09/28/2020 10:42:00 AM EST [facility] [address] [place] [address] [phone] NAME SEX PT STATUS ACCOUNT NUMBER BRIDGER ARAUJO REG REF [id number] ORDERING PHYSICIAN LOCATION MEDICAL RECORD NO. Rl Santamaria DO EKG [id number] ATTENDING PHYSICIAN DATE OF DATE OF EXAM/TIME Danielle Robbins NP 1960 09/28/20 / 1016 TYPE / EXAM Xray Chest 2 view PA/LAT REASON FOR EXAM preop testing COMPARISON: None FINDINGS: The cardiac and mediastinal silhouettes appear normal and the lungs are clear. The bones and soft tissues are normal. The upper abdomen is unremarkable. IMPRESSION: No acute disease identifiable. Reported By Ariadna Cochran MD on 09/28/20 1042 Signed By Ariadna Cochran MD on 09/28/20 1042 Date Time CC: Danielle FLETCHER Rosendo; Ariadna Cochran MD Techn: CARR Trans Dt/Tm: Trans by: DT Prt Dt/Tm: 5237-7750: Total DLP = 0.00 mGy-cm Fluoroscopy Time (in secs): Name Value Range Interpretation Code Description Data Octavia rce(s) Supporting Document(s) ID Date Data Source [id number] 09/28/2020 10:27:00 AM EST [facility] Name Value Range Interpretation Code Description Data Octavia rce(s) Supporting Document(s) Leukocytes [#/volume] in Blood by Automated count 6.8 10*3/uL 4.45-10 .71 N [facility] Erythrocytes [#/volume] in Blood by Automated count 3.89 10*6/uL 4.20-5.40 Below low normal [facility] Hemoglobin [Moles/volume] in Blood 11.8 g/dL 10.7-15.4 N [facility] Hematocrit [Volume Fraction] of Blood by Automated count 36.5 % 37-47 Below low normal [facility] Erythrocyte mean corpuscular volume [Ent itic volume] in Cord blood by Automated count 93.8 fL 80-96 N [facility] Erythrocyte mean corpuscular hemoglobin [Entitic mass] by Automated count 30.3 pg 27-31 N [facility] Erythrocyte mean corpuscular hemoglobin concentration [Mass/volume] in Cord blood 32.3 g/dL 33-37 Below low normal [facility] Erythrocyte distribution width [Entitic volume] by Automated count 12 % 11-15 N [facility] Platelets [#/volume] in Blood by Automated count 228 10*3/uL 130-472 N [facility] Platelet mean volume [Entitic volume] in Blood 10.4 fL 9.1-13.1 N [facility] Neutrophils/100 leukocytes in Blood by Automated count 54.6 % 41- 77 [facility] Neutrophils [#/volume] in Blood by Automated count 3.7 U 1.7-7.6 N [facility] Lymphocytes/100 leukocytes in Blood by Automated count 29.9 % 14- 46 N [facility] Lymphocytes [#/volume] in Blood by Automated count 2.0 U 0.6-4.6 N [facility] Monocytes/100 leukocytes in Blood by Automated count 9.9 % 4-12 N [facility] Monocytes [#/volume] in Blood by Automated count 0.7 U 0.2-1.2 N [facility] Eosinophils/100 leukocytes in Blood by Automated count 4.6 % 0-7 N [facility] Eosinophils [#/volume] in Blood by Automated count 0.3 U 0.0-0.5 N [facility] Basophils/100 leukocytes in Blood by Automated count 0.9 % 0.4-1 .3 N [facility] Basophils [#/volume] in Blood by Automated count 0.1 U 0.0-0.2 N [facility] NUCLEATED RED BLOOD CELL 0 % [facility] NUCLEATED RED BLOOD CELL# [address] [facility] Immature granulocytes [Presence] in Blood by Automated count 0-2 N [facility] Immature granulocytes [#/volume] in Blood by Automated count 0.0 U 0-0.1 N [facility] Manual Differential panel - Blood NO [facility] ID Date Data Source [id number] 09/28/2020 11:28:00 AM EST [facility] Name Value Range Interpretation Code Description Data Octavia rce(s) Supporting Document(s) Urea nitrogen [Mass/volume] in Serum or Plasma 17 mg/dL 9-23 N [facility] Sodium [Moles/volume] in Serum or Plasma 142 mmol/L 132-146 N [facility] Potassium [Moles/volume] in Serum or Plasma 4.5 mmol/L 3.5-5.5 N [facility] Chloride [Moles/volume] in Serum or Plasma 109 mmol/L 99-109 N [facility] Carbon dioxide, total [Moles/volume] in Serum or Plasma 29 mmol/L 20 -31 N [facility] Anion gap in Serum or Plasma 9 mmol/L 8-16 N L [facility] Glucose [Mass/volume] in Serum or Plasma 95 mg/dL 74-106 N [facility] Creatinine 0.8 mg/dL 0.5-1.1 [facility] Glomerular filtration rate/1.73 sq M.pre dicted [Volume Rate/Area] in Serum or Plasma Greater Than 60 ABOVE 60 [facility] Alanine aminotransferase [Enzymatic acti vity/volume] in Serum or Plasma by With P-5'-P 21 U/L 10-49 N [facility] ital Aspartate aminotransferase [Enzymatic ac tivity/volume] in Serum or Plasma by With P-5'-P 13 U/L 0-33 N [facility] pital Alkaline phosphatase [Enzymatic activity/volume] in Serum or Plasma 74 U/L 45-129 N [facility] Calcium [Mass/volume] in Serum or Plasma 9.2 mg/dL 8.5-10.1 [facility] Bilirubin.total [Mass/volume] in Serum or Plasma 0.2 mg/dL 0.3-1.2 Below low normal [facility] Albumin [Mass/volume] in Serum or Plasma by Bromocresol purple (BCP) dye binding method 3.6 g/dL 3.2-4.8 N [facility] ital Protein [Mass/volume] in Serum or Plasma 7.0 g/dL 5.7-8.2 [facility] ID Date Data Source [id number] 09/20/2020 01:20:28 PM EST [facility] Name Value Range Interpretation Code Description Data Octavia rce(s) Supporting Document(s) Telephone Encounter [facility] ZKRCNe1uBiHXCzDf80/WLLyiJBSwb6NdLIvpMBx9JBiyRCHoC5HrLDJ7uZ8pKPK0CFyTRdXyFtDgAYX7 lb [file] AgICAgICAgICAgICAgICAgICAgICAgICAgICAgICAgICAgICAgICAgICAgICAgICAgICAgICAgICAgIC AgICAgICAgICAgICAgICAgICAgICAgICAgICAgICAg DQogICAgICAgICAgICAgICAgICAgICAgICAgICAgICAgICAgICAgICAgICAgICAgICAgICAgICAgICAg ICAgICAgICAgICAgICAgICAgICAgICAgICAgICAgICAgICAgICAgICAgDQogICAgICAgICAgICAgICAg ICAgICAgICAgICAgICAgICAgICAgICAgICAgICAgIC AgICAgICAgICAgICAgICAgICAgICAgICAgICAgICAgICAgICAgICAgICAgICAgICAgICAgDQogICAgIC AgICAgICAgICAgICAgICAgICAgICAgICAgICAgICAgICAgICAgICAgICAgICAgICAgICAgICAgICAgIC AgICAgICAgICAgICAgICAgICAgICAgICAgICAgICAg ICAgDQogICAgICAgICAgICAgICAgICAgICAgICAgICAgICAgICAgICAgICAgICAgICAgICAgICAgICAg ICAgICAgICAgICAgICAgICAgICAgICAgICAgICAgICAgICAgICAgICAgICAgDQogICAgICAgICAgICAg ICAgICAgICAgICAgICAgICAgICAgICAgICAgICAgIC AgICAgICAgICAgICAgICAgICAgICAgICAgICAgICAgICAgICAgICAgICAgICAgICAgICAgICAgDQogIC AgICAgICAgICAgICAgICAgICAgICAgICAgICAgICAgICAgICAgICAgICAgICAgICAgICAgICAgICAgIC AgICAgICAgICAgICAgICAgICAgICAgICAgICAgICAg ICAgICAgDQogICAgICAgICAgICAgICAgICAgICAgICAgICAgICAgICAgICAgICAgICAgICAgICAgICAg ICAgICAgICAgICAgICAgICAgICAgICAgICAgICAgICAgICAgICAgICAgICAgICAgDQogICAgICAgICAg ICAgICAgICAgICAgICAgICAgICAgICAgICAgICAgIC AgICAgICAgICAgICAgICAgICAgICAgICAgICAgICAgICAgICAgICAgICAgICAgICAgICAgICAgICAgDQ ogICAgICAgICAgICAgICAgICAgICAgICAgICAgICAgICAgICAgICAgICAgICAgICAgICAgICAgICAgIC AgICAgICAgICAgICAgICAgICAgICAgICAgICAgICAg TOTdSUFlTRZeESu8Y2xsSEEpWSUlTP0aJTa4Na8+EFxAOkHvJGM8vpFhcB3SPY2vh1CwHOsgYNLpg6Sf TLz6UL2RENCyNNnmHG2CAWufts7LNAGzLLFnnKHOu9aaUiHcRUK5XMZhZnqiDM9XTXHkG3nbqnWeJHEe SYWZIM0DPqZwO7MnwD45KRJWIi7+DQplbmRvYmoNCj GiCTUii2FpUUa8NH1PQGOiMuczc6AfLkHaLYIYSRjtQF8JHVB6NBGyOIRrCk6OVYWpW776tbYsVG6XBa 1UViSrHQ4bbr2PKpCyYOAwTsyBLna4HYpkOS4FpOQaIIiYIDcsfItaikWlHN9qs0CbkSWbGNE2LCYwrZ JzTIRKKAJsPAqgmRVxIB0OMSC8XEQpRX8vEJUwVKQn WpS1UXJHLT6XKCNcHMMuaAUoBUVvAHOLQQ8QGFpvZDP6XvocmuUjfCVbTFagDH1BKWUvbrYtSiCkZTLN DQo+Pm5KAI5ng2VtGLdgHVYhID5ltv5CAUkEHcTiW1A1lMLkK4R9JFcfSz8YWDGfNHWpDqLzKMGKXTva JS1POA4fjnG4JD6VtOXfSAZfPPSwnDFwSMg5N43olP IuMOugYW7JGCS+Mehdi+Ag4CBNKkOXUuXVDxTnAhQDTWXvBoD9VeJ5QDb9DnM4IhBX47oRxzcxAcMNjxBH 5XYC6oMZFpCSPNHO8KjEIrbX4gfqLpNnMdKCVWAzLbS26boTMjBCKvMFMvLTEnRp9LAZXhX0AktjGqhX opruSzJQSpDBSZAQ0SOBuriiUbhLDfjGsxNB40eYto JQ3SAc6TFdXqUF0rvk1BrVQfQi5DKTBtZJ7QXLHsJNZfTTOlZJY0SFMhNnSvCRkpBDLfFAKmZMK6RVUv YIPfFL3MOvYhZRIyCHo6JvUgLAQqPROlzx4WOHEpRDLmOCD6DnHxIHQpODCaAAkmEXLsLSHtFOG6IWVt NSCbQC3RIgNaDYUxKVR0QQMnGDIjYBQokn0QLNNfDN YrMNA8GBMmFIRnNQQsXXvxQEPlPNAiCtL6OEJcEEBmMO6YEcWcCCHdTQX0XTreTPVpQWIntq6SYOMdKJ JxZfJvDyWeUBEkAIHsLZnbXIAtRMOnHGQiPPWxFOUfRM0XGpUoLTOpXOIiASavEVYmUIFmuo8GUMPaOY KiGNU5EMHkKJGgMOOpMArvRBChUIV6XyzgJCTfFTEm QV3DGhFfYWNiOHagIPRsEUMhSMCpji7PGVMiQAVrTjIdTGXgMROhEQFkKUkcEOEeGRS1UVI1YVPsVBVe ZT0HJdTtPTFlFMc2LNXeDSYmKTQvew2IVDBvXSFzXEY6ZpShYUIlFEGgIYhoSLDoDVT5OrR6UTDxBZHs TG5HBbAkGTRlQXi0JWVqCRJaJHEgif6JQKWuSWUyRM KkQdTfAHKcQJLtYNdlJBXyBGCmCtS2AWLjRGOkTA2QItNrHKLeAmN2XjOlRPRmWMRvgv5SVSIrRZNiKA s2JXDyYBKxVNEcTMn0bxJnxWZrYAb7TQ0UV4FwjtYeMjLFCr5Bs513QSC6DYTcAu4IK6jhDd7kALArUU POYo7VPUg3EUMdCeI3ZhJ2IZC1ZoSwL7D2H8AmYKY9 RAW6LRYiTzj+SIkuVROpPbJ2XIn1YUyuFmHcVlF3LcJyNHcsKIO7EBO0UE8oECVPMa9+DQpzdGFydHhy ZWYVPyWrMiQ2BTpoZFIPFh6Y ID Date Data Source [id number] 09/15/2020 03:17:33 PM EST [facility] Patient: BRIDGER ARAUJO : 3 PACS [facility]: [facility] SK[facility] BASE TO MID THIGH Provider: [facility]/CTHISTORY: Initial treatment strategy. Right lateral breast cancer diagnosedOct.1: Solitary pulmonary noduleTECHNIQUE: Axial 3.75 mm images were obtained from the base of the skull to thebottom of the thighs with low-dose protocol CT. Following intravenousadministration 11.9 mCi of F-18 FDG PET scan was performed from base of skull toupper thighs. Co-registration was performed 3-D reconstructed imaging performed.COMPARISON: Chest CT 07/28/2020FINDINGS:HEAD AND NECK: No hypermetabolism is seen in the neck.THORAX: There is a nodule in the posterolateral right lower lobe, measuring 7 mmwhich is stable from previous exam. This does not have abnormal metabolicuptake. There is additional nodule in the posterior medial left lower lobemeasuring approximately 7 mm. This also does not have significant metabolicuptake. FINDINGS are stable from prior recent chest CT. No suspicious noduleshave developed. No hilar or mediastinal adenopathy is seen. No pleural effusionseen. The heart is not enlarged. No hypermetabolic activity is seen.ABDOMEN AND PELVIS:The liver is unremarkable. Gallbladder is unremarkable. Spleen isunremarkable. Pancreas is unremarkable. Kidneys are unremarkable. No bowel abnormality seen. No retroperitoneal or pelvic adenopathy is seen.No abnormal metabolic activity is seen.OSSEOUS STRUCTURES:Bony structures show no hypermetabolic focus to suggestmetastatic disease.No body wall lesion is identified.IMPRESSION: NODULES IN THE POSTERIOR LOWER LOBES DO NOT HAVE SIGNIFICANTMETABOLIC UPTAKE. FOLLOW-UP LOW DOSE CHEST CT IN ONE YEAR WOULD BE REASONABLE.Electronically Signed by Dr Rl Ibrahim MD 09/15/2020 3:17 PM Name Value Range Interpretation Code Description Data Octavia rce(s) Supporting Document(s) ID Date Data Source [id number] 09/08/2020 05:53:25 PM EST [facility] Name Value Range Interpretation Code Description Data Octavia rce(s) Supporting Document(s) Telephone Encounter [facility] XDIBKd1tXbUHFeXj60/AJVneBZBoe4FwNNzzZZl0MZcvYRUrO0TlRBI1aO9hQQM9TGfNGyPdCqLqFfYn [facility] [file] NTE+HX6kDMe+[id number]== ID Date Data Source [id number] 08/26/2020 02:04:00 PM [facility] Patient Name: BRIDGER ARAUJO : 1960 Sex: F Pt Unit #: [id number] Location:[place] Provider: Visit Date/Time: 08/26/20 Primary Insurance: [facility] Secondary Insurance: Self Pay ADDENDUM TIME SPENT: 20 MINUTES <Electronically signed by Danielle Robbins NP> 08/30/20 1525 Intake Intake Visit Reasons: Telemed Visit Nurse Note: pt is on telemed call for anxiety and depression pt is having issues with having custodyof grandchildren and cancer Is patient in pain?: No Allergies Sulfa (Sulfonamide Antibiotics) Allergy (Verified 06/11/20 09:34) Medications - Last Reconciled 08/26/20 by Danielle Robbins NP alprazolam 0.25 mg PO TID MDD 3 sertraline 25 mg PO QDAY sumatriptan succinate (Imitrex) take 1 tab at onset of headache; if no relief may repeat 1 tab in 2hr; max = 4 tabs/day (24hr) PO 25 mg Fall Risk History of falls: No Ambulatory Aid:: None Gait/Transferring:: Normal Medications:: Psychotropics PHQ-2/9 Over the last 2 weeks, how often have you been bothered by any of the following problems? 1. Little interest or pleasure in doing things: not at all 2. Feeling down, depressed, or hopeless: nearly every day Total score: 3 3. Trouble falling or staying asleep, or sleeping too much: nearly every day 4. Feeling tired or having little energy: not at all 5. Poor appetite or overeating: more than half the days 6. Feeling bad about yourself - or that you are a failure or have let yourself and your family down:more than half the days 7. Trouble concentrating on things, such as reading the newspaper or watching television: not at all 8. Moving or speaking so slowly that other people could have noticed? - Or the opposite - being so fidgety or restless that you have been moving around a lot more than usual: not at all 9. Thoughts that you would be better off or of hurting yourself in some way: not at all Total score: 10 If you checked off any problems, how difficult have these problems made it for you to do your work, take care of things at home, or get along with other people?: very difficult Source: Developed by Drs. Adair Mohamud, Sherice Bedolla, Scott Nunez and colleagues, with an educational daniel from [employer] HIV Testing Offer - ages 13-64 HIV testing Offer: Yes Requirement for HIV testing offer been met?: Patient reports past refusal Coronavirus Screeni ng Screening Have you traveled outside of [facility] or [facility] in the last 14 days.: No Has patient experienced coronavirus symptoms: No [facility] Medical History (Updated 08/26/20 @ 14:37 by Danielle Robbins NP) Breast mass, right Surgical History section History of - surgery History of - surgery Family History Mother Hyperlipidemia Father Alzheimer disease Social History Does the Patient have a Healthcare Proxy: No Does Patient have a DNR?: No Does Patient have a Living Will?: No Hx Recent Travel (where): No Smoking Status: Current every day smoker HPI Additional HPI HPI Details: TELEMED VISIT FOR ANXIETY RECHECK. RECENTLY DX'D WITH BREAST CANCER. SEEING ONCOLOGIST IN [place]. STATES WILL BE HAVING BRONCHOSCOPY NEXT WEEK. INCREASED STRESS D/T FAMILY I SSUES. HAS CUSTODY OF 2 YOUNG GRANDSONS. DIFFICULTY FINDING BABYSITTERS SO SHE CAN KEEP HER ONCOLOGY APPT. Review of Systems Const All systems reviewed are unremarkable except as noted in HPI and below Reports system reviewed and no additional complaints, except as documented, Denies chills, Denies fever(s) and Denies headache(s) Eyes Reports system reviewed and no additional complaints, except as documented ENT Reports system reviewed and no additional complaints, except as documented, Denies headache(s), Denies nasal congestion and Denies sore throat Card Reports system reviewed and no additional complaints, except as documented, Denies chest pain and Denies dyspnea Resp Reports system reviewed and no additional complaints, except as documented, Denies cough and Denies dyspnea GI Reports system reviewed and no additional complaints, except as documented, Denies constipation, Denies heartburn, Denies diarrhea, Denies nausea and Denies vomiting Genitourinary: Reports system reviewed and no additional complaints, except as documented; Denies dysuria, urinary frequency or urinary urgency Musc Reports system reviewed and no additional complaints, except as documented Skin/Breast Reports system reviewed and no additional complaints, except as documented Neuro Reports system reviewed and no additional complaints, except as documented and Denies headache(s) Psych Reports system reviewed and no additional complaints, except as documented, Reports anxiety and Reports depression Details: R/T RECENT DX OF BREAST CANCER AND FAMILY ISSUES Endo Reports system reviewed and no additional complaints, except as documented Dontrell/Lymph Reports system reviewed and no additional complaints, except as documented Aller/Immun Reports system reviewed and no additional complaints, except as documented Exam Const General: cooperative Quality Reporting Depression/Bipolar (159/160/161/169/177) Total score: 10 Assessment Plan Assessment Plan (1) Depression: Status: Acute Code(s): F32.9 - Major depressive disorder, single episode, unspecified SNOMED Code(s): 59478201 Category: Medical Qualifiers: Depression Type: major depressive disorder Major depression recurrence: unspecified whetherrecurrent Active/Remission status: currently active Major depression episode severity: moderate Qualified Code(s): F32.1 - Major depressive disorder, single episode, moderate (2) Anxiety: Status: Acute Code(s): F41.9 - Anxiety disorder, unspecified SNOMED Code(s): 69053151 Category: Medical 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 USING ALPRAZOLAM ONCE OR TWICE A DAY D/T INCREASED ANXIETY. HAS MULTIPLE APPT SCHEDULED WITH ONCOLOGY AND PULMONOLOGY. VERY STRESSED OVER FAMILY ISSUES. 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 WILL SCHEDULE OV IN ONE MONTH Orders Other Medications: Refilled: alprazolam 0.25 mg PO TID 30 tabs 0RF MDD 3 <Electronically signed by Danielle Robbins NP> 08/26/20 1440 Name Value Range Interpretation Code Description Data Octavia rce(s) Supporting Document(s) ID Date Data Source [id number] 08/26/2020 12:46:16 PM EST [facility] Name Value Range Interpretation Code Description Data Octavia rce(s) Supporting Document(s) Telephone Encounter [facility] CSCCEg9lKdEIDwHp41/FSZofNOCnf9ZbZYptNZh9GWazKGPmZ8BsOXF7dU0zJWG3IOxNMpDrJxXvKgLk lbm [file] AgICAgICAgICAgICAgICAgICAgICAgICAgICAgICAgICAgICAgICAgICAgICAgICAgICAgICAgICAgIC PyRROmDDIuTLBqDZFbAEHjWFEsDS9PWMOhGTEhLVOjUNPoZLHaQIMdGENpRFFrLOEwLYLmGCQzWTQjOP AgICAgICAgICAgICAgICAgICAgICAgICAgICAgICAg LZDqXQYrNZYrZZBhJRYdQFKjQYClNATlNLPrVJKgFL9BTHWaOHIeYYJmGDLjDNCtBGXuZNVdTICcXOYv ICAgICAgICAgICAgICAgICAgICAgICAgICAgICAgICAgICAgICAgICAgICAgICAgICAgICAgICAgICAg PSNxKWXoLNVmRUHpCA2HULOvYIClDJSeKKSaQGJmOS AgICAgICAgICAgICAgICAgICAgICAgICAgICAgICAgICAgICAgICAgICAgICAgICAgICAgICAgICAgIC NuAHReAFNcLZPfKXGgJCFiLQIgQOYsXH1PSGClSGDoFROgJFBpCPHiXUScPBJuEQYjRAHaFJNvVAWvNE AgICAgICAgICAgICAgICAgICAgICAgICAgICAgICAg AUWxIICsRWNhGKScUTCtSNKkBJQhINWmTEIyHFJyCCItXV2MRVXjDVNpOVHwAGHuKGImSGFrLFFyAILd ICAgICAgICAgICAgICAgICAgICAgICAgICAgICAgICAgICAgICAgICAgICAgICAgICAgICAgICAgICAg VUHdJOIuIPDmIOGkYTSsJO4HGNChNRUcGFFxGXTsJB AgICAgICAgICAgICAgICAgICAgICAgICAgICAgICAgICAgICAgICAgICAgICAgICAgICAgICAgICAgIC BaVNSwAGPrJRKzLMUrROWhEJPyCMZdMUAaEW6FCPHpIZDlUMEmJRNwSPZiJDBqLQXlVCMiBTAkUPQyCV AgICAgICAgICAgICAgICAgICAgICAgICAgICAgICAg TTRgQBBiZYVdSMHdKUZuPHReXVSqLITtGTCcJSPsEYApXWHoWT7RQXDjPRLzIHCgYUHkEIXyAPTyFLVj ICAgICAgICAgICAgICAgICAgICAgICAgICAgICAgICAgICAgICAgICAgICAgICAgICAgICAgICAgICAg HYAwRLOzQJZdLIWeVCNsZEMcAZ3HOBSuASHrYUOlMG AgICAgICAgICAgICAgICAgICAgICAgICAgICAgICAgICAgICAgICAgICAgICAgICAgICAgICAgICAgIC EzJPYoJXQsYSXiAQSwEBHaSSTjVCQjVLHsZHQnXL2SNM11nNVhz3B4HPFjAR8dwvw/Xq7CBKyfusHuuB UwGR6LPfBzVU3mlj0KNvAdST3aar5VUCyHNvZwN2K7 jDHvLHScISLWUiYtA85oGPfaLp23ZPuaNKMqOaWcSUq7Kx6BQiApH7gcJWVnXxV8KCQcFiWeQTxjQR5W x8GsfTWkOGn+Zj9LEB0hr5VqZPivUcGbGU1akw7YAOfUJiYrB1MaggW4OOQrAJYhOn1DWMDdWEBzaOQs WpHpVZFMQvBxG5FedC13RWQHOw7+DQplbmRvYmoNCj UaQLEvn7WxEQg5OK6FAHGkCQb2eGDdXGSeVPMue50tOPDdM248ijKzcjVcpXQUgFaxpWGsQAJ1cyRwfM qsKDMCZOAhwJHyZs7oXW0dMTXdASSjTkS6CBZPNU0AQCEzBRZicJNfYOSpHUZHUW8RGSecIEX7Uprpkc XbtULwUZngFU7FPBSuhjJtLpReAQYIVWi+Gh1KAG7j y6VrQFbgGNJxIY1vic4NBFaPRrDjQ7H8qRNuT6M5TCqlGm1GTALrLGLqYaVoTQEZJKhwGN5WQL1dklJ5 CZ4QoKXrADCyNBYuyAZbHKs6V19onXJgULbyXF5NSRL+Mehdi+In6OWKYoNLWjLKSuTmJpCSSLZwVfU0Qk R6AAv4NlF9MbKT75pLgatsJdEKhnBT2EFY4gRTNnKZ YZFZ0EyZHvrG5trdYnVqQzRRDLOeOrI24vrLWfVCIgZGAtNZOpDy4SPFSbQ1XlndRxiSuwjkTwITSgZZ LQBV2QPEqbcqLlsMVauFgeUO16nJsvBZ8PZx8CJiIgEY7xfm9PaTUpPw2RTAUvQV7SNISqDGGbGNYvUS G4LGHzPaFpVHusIVNeKDYiOAZ4XMPyZXEtFI7RKdDn QWTnSVm3BOorOKTvBULlka7CVQSmPONwBVR5JuMrLJBlJCAjJSkgWRCvTUGwRQW5IUWkNYKkTG8AHtMb BQYbORTpOWQtOPLsUPXsrw2OQGMoYHZwAPU8EEHtUQJjQKVmYXztHDXbYDAiLeUyYJTmGXBcOO5QTdQz NYYkSJG1BIBiDSExYJZpdp8PEDTvPSYqDxOyGEXgEZ HnSBCeXObzPNNkPXDoGXz1OPBrLDGlRR0MGzWfYRDfZPZ0PLIwXYYyFWXzxv3ILJOhZSNsMuc7TcBmLY AlQLKmDTodLOWgYWW5JjB9INKhNHMyQT7ABrNyDHQuWDO2ZwCgGOVcCUJbzd9KENZkEAKdFoo5EDFeQG EkNOCqBQktWVBkUCR9XCcdWFWvBWPmFE9PSgNxBOWv OPtfRxahYYMvUCOdqs3YIJKoPJMnPOE5VBHrBUDsCHYiTEvlMERmYAP1MsH7HEFePCPbWE6UFuXoPWJg RJq5ZehfZVDaSIJguj9MWVAuIZUoOOn3NdKgDBMbBUEuMJapCWVgHZAcAiwfAVDgCXTyXX9OXkYzJPDq LbV4ORCoGBNhIXTkyk2ENILvDUOtPAYzEKFtPOGxZX CzBWd1rgJubVRwGPv7IR8NW0FmsiHdEnGQVv9Gn339GFV1YJGiSi3YP2doGy7yIWCgPNTPZd4YJZc7IR UhOEIwJ1CzPWR3IGLoF9JuJMD9GKG5Wma8HoQnRHK+BCm1UTCiNMC8KyL3AcrxAKMvLeOfJzV0EZWeMW m0QnS4TX9vBZEDIq6+OTrogCTuiZdeFSCBAzBiAMLbWVwdHSSQNu8C ID Date Data Source [id number] 08/20/2020 05:33:05 PM EST [facility] Name Value Range Interpretation Code Description Data Octavia rce(s) Supporting Document(s) Progress Notes [facility] JFWPWh2vObIAIhMq27/LOBcuRPDhb2LlBPkfRZy5OBhoPQQyM6RgWES0zE9uTCZ9ZUsLAmLzTbKiRvI5 lbm ZtKsnAJeIvVGEyVtxZPlBaRRieQfebrFMyBY9QcYM1COFaR25zCQAsFDXlR8RyXKD9OaI+Tj1CLOAelB ReWP8KPveF6L7ICsnNNU9NWl3ZHCZteoHBcz+8xfGRuHLYQUle/IKRjEkwECHs+C9krdtA8Ks0Po5ryT lI6tUK2Vg8aUvKn4UF/ttY0WbkJBvV/P/Vd9DdmBG2 6oxzbNLmlty3M/8LqfNYGRtk6q8xfu6sbjV50mSAyreiLPXZkPdQWKMUcXbfHn8kzNWX42n2QJo/FSfd /EkV+S7ygNW5b4ovVHaFnHxfEgLHFU+65eKsSMxofO/QwVC2z4Mo2ecZBFzRFyyB4pg2eXY5yFIjme/E czac56wtHdYw4mKl/WI/Gkir5wgzXEUwAHIebO8u+m ibUe3q+10L6IS7mTF/ac6Y6WwRr16G8b8Q+S4eYWYSvdY8sdB6O3uqbJlUaKFb/Ir2fgZ6Hap7iGxQS4 bNnmd3hj0S3zyZaDX4RZKYfW0IMLV6zfe6F+wFoC/RfTB7Df5CGb1GW1cGR1tfP8WJePDuA4tlosm5ac PTq36kkEb4CfefxMZNXagkp6D6dixxqgkutblc/BJp [file] XSANCj4+SXqozLHlbJyhSVEMBvx3KsKIZfFvMM2JUYw= ID Date Data Source [id number] 08/19/2020 02:42:52 PM EST [facility] Name Value Range Interpretation Code Description Data Octavia rce(s) Supporting Document(s) Telephone Encounter [facility] FGIMXu4aJyMEXuIn33/XCLvhWYNfb9YoYObfHAa9WOkzOBLsP5IpLSN7lQ8xAMH2GBmLKjBjFwVzTiQr lbm [file] W2MUL9A0N8PGUdRZstSyVrWYFuGMP7NNAbMjMyJT 3CRb3YEnG5UWO1sYFhCv3NSxSzJgYZVdXxUQ6VNSl= ID Date Data Source [id number] 08/19/2020 10:04:49 AM EST [facility] Name Value Range Interpretation Code Description Data Octavia rce(s) Supporting Document(s) Progress Notes [facility] ZDPMOc8gQuREPcPs63/PTJkjEAUts7YlUGftIEn2JZowLUDeG6HpIXR9vQ6cGSY8EKhJHjAzPaFgTyTd lbm [file] ICAgICAgICAgICAgICAgICAgICAgICAgICAgICAgICAgICAgICAgICAgICAgICAgICAgICAgICAgICAg ICAgICAgICAgICAgICAgICAgICAgICAgICAgICAgICAgICAgDQogICAgICAgICAgICAgICAgICAgICAg ICAgICAgICAgICAgICAgICAgICAgICAgICAgICAgIC AgICAgICAgICAgICAgICAgICAgICAgICAgICAgICAgICAgICAgICAgICAgICAgDQogICAgICAgICAgIC AgICAgICAgICAgICAgICAgICAgICAgICAgICAgICAgICAgICAgICAgICAgICAgICAgICAgICAgICAgIC AgICAgICAgICAgICAgICAgICAgICAgICAgICAgDQog ICAgICAgICAgICAgICAgICAgICAgICAgICAgICAgICAgICAgICAgICAgICAgICAgICAgICAgICAgICAg ICAgICAgICAgICAgICAgICAgICAgICAgICAgICAgICAgICAgICAgDQogICAgICAgICAgICAgICAgICAg ICAgICAgICAgICAgICAgICAgICAgICAgICAgICAgIC AgICAgICAgICAgICAgICAgICAgICAgICAgICAgICAgICAgICAgICAgICAgICAgICAgDQogICAgICAgIC AgICAgICAgICAgICAgICAgICAgICAgICAgICAgICAgICAgICAgICAgICAgICAgICAgICAgICAgICAgIC AgICAgICAgICAgICAgICAgICAgICAgICAgICAgICAg DQogICAgICAgICAgICAgICAgICAgICAgICAgICAgICAgICAgICAgICAgICAgICAgICAgICAgICAgICAg ICAgICAgICAgICAgICAgICAgICAgICAgICAgICAgICAgICAgICAgICAgDQogICAgICAgICAgICAgICAg ICAgICAgICAgICAgICAgICAgICAgICAgICAgICAgIC AgICAgICAgICAgICAgICAgICAgICAgICAgICAgICAgICAgICAgICAgICAgICAgICAgICAgDQogICAgIC AgICAgICAgICAgICAgICAgICAgICAgICAgICAgICAgICAgICAgICAgICAgICAgICAgICAgICAgICAgIC AgICAgICAgICAgICAgICAgICAgICAgICAgICAgICAg ICAgDQogICAgICAgICAgICAgICAgICAgICAgICAgICAgICAgICAgICAgICAgICAgICAgICAgICAgICAg WERqQRJhCFCbIQVfZTTqAJIaBEIkCYLkOFJlNGXqUFNfIHTkISBzCWYaURLiAPa5I5suZUAkDCUsEA5c STx6Ot1+RGvOSvWkIDH1ucLrhZ1AYG0xi6CiVKxwUV Nnv2GiASj6VZ6OVROfOCvfJV4FFWyyzi5WYGPqXFPxaUTKt9cdIyYjJXA4JEPtFxtdVO0CHUOmY0zluh PwEQFhIOPLWBseKOLDHSftLSKJVLQgEQOrWxEzHAbzTC5Dz1HoeHJ5SOe+Hg4SJB4it4AsKHf8UYDuOB 6xph4HSAwFEmHeX2NcnvO9XGW3NRBqAs2ASMYsVENe jHQ6VwQxSHNPInCrM6IjoW19UYQVIg2+BRwdomRwVwzUBuW4MISkl5SnCOg0MY0UTVEdOCu2iEFoNPJy Z0Qli6GoHf59GYXgUyldXFihL7gpFNEhlGAsA0nyLStrICNiDUInJTGuNr8pOLPzMTIsIzQ6UUXHJV5Q MNOsHCKkjDChOJTsCEWTBN6KVRuuPXN1HxemcvXvyO FpITteVB9PFEBqqpAsABNlASTLUFb+Fq3AIX6aa5BqERe2QdRqHH1kkc2QEJxWTuBdU2M4eGEoH1S6RA qoLo0XOYTnMURpGFZzCTXAUAfwBY9GRE7liaF2KM3QgWGwUDZpOILsmTAhHHq0E74kwFCwYMciSC0YWA A+Mehdi+Ts7EJVOiMQVlJJJjTmZtTIMJKfUvC0QzQ8ZL i4GmP5WqVR79iDycnpIwEIgbHH4RIH4vPNKzCHWGKJ5DhPJdzB4ftiI3FQBlCBULEoCxH43jrNUmBCUf ZCR0FZBqKm2KDCDlG0MmvsExrKgkoaTuABMlYYHXFP7DULtmyiUotFIpzMlxOE34bMzyGW8TQz7LWwUc GQ7qxn7BnREmYv1TPWK9RV3LJCBtWFYtHJXsZFF5SB TiGsToYOboGUUlKUFjGCX2JHHgDYTqDE4ZEfEfBVBlMLVeCPSoAYKpTSBwei3ZKVSuIHI9ZLteDTVoHR GqQYIhEUmvBHUuCEPvGRD6EJYdQLNzFA6RJvZyIYNbVAA0AbApOUTuDXWbjq6DPPYrOOMhIFH4TBJkPC XnVMNxHAopOEKxESO2VWHhZQSxYCTcMW7QLlGsTFFb HEC0KWYdTOFhOJThag5RMJDyVBIdIDB9VDDrTYWbHWVxSAfkMQFfGXN7UDS5FECuZFDkEQ9WMqQpVZZp ZRDzWROtUMCaPIUmff5SRKWnIKLvNbM0QKTdEWZmHBLvAAnyUAVeTVLtRaQ1ALMoNSAhFM3POpLoBGSo TKZ2DVYgDJFxNLWzev0MZEMhEXSdJvdoLCDyLCBuAJ VvNHcjJWHwBWG3Onb6ASAwURCgOK3ABuWkYLAcSIY5WRDmYNHkTSTpvy9POYHqHBDnGEO7UEYiORVfMT NkXPdaNCYzUFS5WJV6VLInXNYrCA6ARqDsLEXgMvz2YKKqDZPjWBOkex7UIFEyRLOeFzc5FjJyIWVoKK IpZCpaPCTgYKB5SWclYBAoQIIqZB7GSdQlDBQgOkmh VhesYWPcQNYypb5JJNUrPKSyXGE3NPZmFORaFJQdIOuyZRXmMRV2EVy5DMVrRWMyBS2KRgHdFYEvRsu2 OzTxGJRkALGrhp5ZSECzVDSpKPKtDjNxGVPgGKGmGOjsWRYnPULrNdo2ZJQgBFZxMV4JSiQvARJdHgF4 BzNiMITpTGBwfy7AAKQqDNHxLYotMJBiGOVdCGGoJY wdIDYcSJOxOEGwMPXyQYYxOY4JSoMxNYHwYqHeWfJtVKNuEDNavk7QNUOiAMR3DFF8BlAtMPUxMZBxZC dmFFWnIZDoWOY9TPIhTAYuDW4RStBgIZTbHDQ6LLAmNNAzPJIzvq2NPCImKAA4UXTrOnJjMNDjLCBxPR piCPJcVRXnOLBnFVKqPXYdSL8ULoMwTICyPMNaETIh KAAjNCLfav2IXSPhLLG5JxG5RcGvMTIeKDCjQRnxTWPtUAGiXcYuOPPoVJAeUB1FBnGdLHKbCIW1EQZi DSLuWWWsav2FEZLaVBZ9Xyd5EOWgOSGeGWBkYZodHLEdWOQ0WNI7SYTgVCTsSS9HXeWqWTGiAUP4XeUd KHLbFONrop1MHIMjAUR1ObEzGZBpKFRfROLoAImrVE ZqPYG3UWx5CBWkZHCkEC8LAfWbTLRsNFDlOLHdDVCjFXQkcx1MmUHfhJrtex2UKWrBHy0AeYsfSQQ3QR peTc0duOC6JrUvCSCHAi3ZvgEoLJVtEQGKVEtdAVBcLEK8PCYuYQMuVzMjUtOwVDBpG9E0JWk9CuW5Oj ScSNPkEqS0TAEiXHYpBjNgKsDrGzBqOfSwEam2WCE7 NDhmYWNhNDE+KX2zCTq+Ma5Fv8JvigU4efLxALh6MzS1LN8JALSPD5FBWq== ID Date Data Source [id number] 07/29/2020 03:29:00 PM [facility] Patient Name: BRIDGER ARAUJO : 1960 Sex: F Pt Unit #: [id number] Location:[place] Provider: Visit Date/Time: 07/29/20 Primary Insurance: [facility] Secondary Insurance: Self Pay Intake Vital Signs 07/29/20 15:29 Current Height 5 ft Current Weight 115 lb 8 oz Weight Measurement Method Standing Scale BMI 22.5 BP 108/54 Blood Pressure Location Lt brachial Position Sitting Respiration 18 Pulse 59 L Pulse Source Pulse Oximeter Pulse Oximetry (%) 98 Oxygen Delivery Method room air Intake Visit Reasons: Anxiety Nurse Note: 59 year old female in for test results follow up which is causing the anxiety. Pt states that she is very overwhelmed with home life and concerns over her health, denies suicidal ideation. Painting Manager Required: No Accompanied by: Self / Same as Patient Is patient in pain?: Yes (headache) Pain scale (1-10): 7 Allergies Sulfa (Sulfonamide Antibiotics) Allergy (Verified 06/11/20 09:34) Medications acetaminophen-codeine 300-15 mg 1 tab PO TID PRN alprazolam 0.25 mg PO TID MDD 3 methylprednisolone (Medrol (Joel)) orally per package directions sertraline 25 mg PO QDAY sumatriptan succinate (Imitrex) take 1 tab at onset of headache; if no relief may repeat 1 tab in 2hr; max = 4 tabs/day (24hr) PO 25 mg Is last menstrual period known: No Post menopausal: Yes Patient : No Fall Risk History of falls: No Ambulatory Aid:: None Gait/Transferring:: Normal HIV Testing Offer - ages 13- 64 Requirement for HIV testing offer been met?: Patient reports past refusal SBIRT Annual Questionnaire Are you currently in recovery for alcohol or substance use?: No How many times in the past year have you had 4 or more drinks in a day?: None How many times in the past year have you used a recreational drug or used a prescription medication for nonmedical reasons?: 1 or more Do you need a note to return Do you need a note to return to daycare/school/sports/work: No Coronavirus Screening Screening Have you traveled outside of [facility] or [facility] in the last 14 days.: No Has patient experienced coronavirus symptoms: No [facility] Medical History (Updated 07/29/20 @ 16:15 by Danielle Robbins NP) Breast mass, right Surgical History section History of - surgery History of - surgery Family History Mother Hyperlipidemia Father Alzheimer disease Social History Does the Patient have a Healthcare Proxy: N o Does Patient have a DNR?: No Does Patient have a Living Will?: No Hx Recent Travel (where): No Smoking Status: Current every day smoker HPI Additional HPI HPI Details: RECHECK. NEEDS MED REFILLS FEELS A LITTLE BETTER. NOT IRRITABLE. LOTS OF LIFE STRESS. RECENTLY DX WITH BREAST CANCER. Review of Systems Const All systems reviewed are unremarkable except as noted in HPI and below Reports system reviewed and no additional complaints, except as documented Eyes Reports system reviewed and no additional complaints, except as documented ENT Reports system reviewed and no additional complaints, except as documented Card Reports system reviewed and no additional complaints, except as documented Resp Reports system reviewed and no additional complaints, except as documented GI Reports system reviewed and no additional complaints, except as documented Genitourinary: Reports system reviewed and no additional complaints, except as documented Musc Reports system reviewed and no additional complaints, except as documented Skin/Breast Reports system reviewed and no additional complaints, except as documented Neuro Reports system reviewed and no additional complaints, except as documented Psych Reports system reviewed and no additional complaints, except as documented Endo Reports system reviewed and no additional complaints, except as documented Dontrell/Lymph Reports system reviewed and no additional complaints, except as documented Aller/Immun Reports system reviewed and no additional complaints, except as documented Exam Const General: cooperative, healthy appearing, no acute distress, well developed and well groomed Nutritional Appearance: well nourished Orientation: alert, awake and oriented x3 Neck Neck: normal visual inspection and full ROM Neck mass: No Thyroid: thyroid normal Carotids: normal carotid upstroke Resp Effort Inspection: normal respiratory effort Auscultation: clear to auscultation bilaterally Percussion: percussion normal Cardio Rate: regular rate Rhythm: regular rhythm Heart Sounds: S1 normal and S2 normal Pulses: normal peripheral pulses GI Inspection: Yes normal to inspection Palpation: soft General: No CVA tenderness Musc Cervical Spine: normal cervical lordosis and cervical ROM normal Thoracic/Lumbar Spine: thoracic and lumbar spine normal to inspection and thoraco-lumbar ROM normal Skin Lesions: no lesions Rashes: no rashes Hair: normal Nails: normal Neuro General: patient alert, patient awake, patient oriented x3 and gait normal Cranial Nerves: CN's II-XII intact bilaterally Cognition: normal cognition Speech: speech normal Gait: normal gait Motor: muscle tone normal throughout and strength 5/5 throughout Sensory Exam: no sensory deficits noted Extrem General: normal to inspection and full ROM Psych Appearance: grossly normal and well kempt Mental Status: mental status grossly normal Speech and Movement: speech and movement normal Affect: normal affect Attitude: cooperative Thought Process: normal Thought Content: normal Insight: insight good Judgment: judgment good Assessment Plan Assessment Plan (1) Depression: Status: Acute Code(s): F32.9 - Major depressive disorder, single episode, unspecified SNOMED Code(s): 55575287 Category: Medical Qualifiers: Depression Type: major depressive disorder Major depression recurrence: unspecified whetherrecurrent Major depression episode severity: moderate Active/Remission status: currently active Qualified Code(s): F32.1 - Major depressive disorder, single episode, moderate Orders Other Medications: New: sumatriptan succinate (Imitrex) take 1 tab at onset of headache; if no relief may repeat 1 tab in 2hr; max = 4 tabs/day (24hr) PO 25 mg 10 tabs 3RF Refilled: sertraline 25 mg PO QDAY 30 tabs 2RF <Electronically signed by Danielle Robbins NP> 07/29/20 1617 Name Value Range Interpretation Code Description Data Octavia rce(s) Supporting Document(s) ID Date Data Source [id number] 07/05/2020 01:52:41 PM EDT [facility]Name: Bridger AraujoDOB: 1960Provider: Elías Baig: 07/02/2020 Reason For VisitBridger Araujo is an established patient here for follow up. Patient states left lower extremity radiation with numbness at times. W.C. DOI: 03.12.13. The patient has not had a course of physical therapy for greater than 4 weeks. The patient has not had a course of NSAIDs for greater than 4 weeks. ([facility] ). Patient is not working at this time due to this problem. History of Present IllnessThis is a 59-year-old female who tells me that she had an acute onset of back pain after bending forward about 3 weeks ago. She was subsequently seen in the emergency department and given steroids. Her pain did get much better after receiving steroids. She still has a fair amount of lower back pain that radiates into the right buttock, but it is improving. She has used hydrocodone very sparingly in the past which does help. Assessment 1. Lower back pain (724.2) (M54.5) 2. Disc degeneration, lumbar (722.52) (M51.36) Plan Start: HYDROcodone-Acetaminophen 5-325 MG Oral Tablet; 1 tab po TID PRN MDD:3TDD:3 Rx By: Tito Baig; Dispense: 0 Days ; #:21 Tablet; Refill: 0;For: Lower back pain, Lumbar radiculopathy; LISA = N; Sent To: [id number]; Msg to Pharmacy: Reference #:[id number] W/C 03/12/13; Last Updated By: Sera Nelson; 07/02/2020 9:21:43 AM You need to quit smoking.; Status:Complete; Done: [id number] Last Updated By:Brant Burkett; 07/02/2020 9:07:42 AM;Ordered; For:SocHx: Current every day smoker; Ordered By:Tito Baig; Plan, Assessment and Recommendation(s) She was given a small supply of hydrocodone but she understands that we will no longer be prescribing this. If she needs any further medication I am happy to refer her to pain management. Otherwise follow-up in 6 months. Work / School NoteThe incident described by the patient is a competent medical cause of this injury. The patient's complaints are consistent with the history of the injury/illness. The patient's history of the injury/illness is consistent with my objective findings. The percentage of temporary impairment is 50%. 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 Bridger Araujo is on permanent partial disability moderate. This document was dictated and electronically signed using AppCard software. A reasonable attempt at proof reading has been made to minimize errors. Please call with any questions. Signatures Electronically signed by : Leia Rangel; Jul 02 2020 10:50AM EST (Author) Electronically signed by : Jaime Rosas M.D.; Jul 05 2020 1:52PM EST Name Value Range Interpretation Code Description Data Octavia rce(s) Supporting Document(s) ID Date Data Source [id number] 07/01/2020 02:33:00 PM EDT [facility] Patient Name: BRIDGER ARAUJO : 1960 Sex: F Pt Unit #: [id number] Location:[place] Provider: Visit Date/Time: 07/01/20 Primary Insurance: [facility] Secondary Insurance: Self Pay Intake Vital Signs 07/01/20 14:34 Current Height 5 ft Current Weight 110 lb Weight Measurement Method Standing Scale BMI 21.4 BP 132/80 Blood Pressure Location Lt brachial Position Sitting Respiration 18 Pulse 82 Pulse Strength Normal Pulse Source Pulse Oximeter Pulse Oximetry (%) 98 Oxygen Delivery Method room air Intake Visit Reasons: Annual Physical Nurse Note: PT IS HERE TODAY FOR DISCUSSION PT HAS JUST BEEN DIAGNOSED WITH BREAST CANCER AND IS VERY UP SET AND WOULD LIKE TO GO OVER HER FOLDER Is patient in pain?: No Allergies Sulfa (Sulfonamide Antibiotics) Allergy (Verified 06/11/20 09:34) Medications acetaminophen- codeine 300-15 mg 1 tab PO TID PRN alprazolam 0.25 mg PO TID MDD 3 methylprednisolone (Medrol (Joel)) orally per package directions sertraline 25 mg PO QDAY HIV Testing Offer - ages 13-64 Requirement for HIV testing offer been met?: Patient reports past refusal Coronavirus Screening Screening Have you traveled outside of [facility] or [facility] in the last 14 days.: No Has patient experienced coronavirus symptoms: No PFSH Medical History (Updated 07/01/20 @ 16:00 by Danielle Robbins NP) Breast mass, right Surgical History section History of - surgery History of - surgery Family History Mother Hyperlipidemia Father Alzheimer disease Social History Does the Patient have a Healthcare Proxy: No Does Patient have a DNR?: No Does Patient have a Living Will?: No Hx Recent Travel (where): No Smoking Status: Current every day smoker HPI Additional HPI HPI Details: RECHECK. ON SERTRALINE. NOT WORKING WELL. RECENTLY DIAGNOSED WITH BREAST CANCER. VERY UPSET/ANXIOUS. CRYING FREQUENTLY. TEARFUL IN OFFICE. Review of Systems Const All systems reviewed are unremarkable except as noted in HPI and below Reports system reviewed and no additional complaints, except as documented Eyes Reports system reviewed and no additional complaints, except as documented ENT Reports system reviewed and no additional complaints, except as documented Card Reports system reviewed and no additional complaints, except as documented Resp Reports system reviewed and no additional complaints, except as documented GI Reports system reviewed and no additional complaints, except as documented Genitourinary: Reports system reviewed and no additional complaints, except as documented Musc Reports system reviewed and no additional complaints, except as documented Skin/Breast Details: RECENTLY DIAGNOSED WITH BREAST CANCER. SEEING [place] BREAST SURGEONS. WOULD LIKE TO SEE ONCOLOGIST [place]. Neuro Reports system reviewed and no additional complaints, except as documented Psych Reports system reviewed and no additional complaints, except as documented Endo Reports system reviewed and no additional complaints, except as documented Dontrell/Lymph Reports system reviewed and no additional complaints, except as documented Aller/Immun Reports system reviewed and no additional complaints, except as documented Exam Const General: cooperative, healthy appearing, no acute distress, well developed and well groomed Nutritional Appearance: well nourished Orientation: alert, awake and oriented x3 HENMT Head: normal to inspection, normocephalic and atraumatic Ears: hearing grossly normal bilaterally, external ears normal, TM's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 menstrual period known: No Post menopausal: N o Patient : No Vision Wearing glasses?: No Fall Risk History of falls: No Ambulatory Aid:: None Gait/Transferring:: Normal Medications:: No High Risk Medications HIV Testing Offer - ages 13-64 HIV testing Offer: No Requirement for HIV testing offer been met?: Patient reports past refusal Hep C Testing Offered: No Hep C Requirement met: Patient reports past refusal SBIRT Annual Questionnaire Are you currently in recovery for alcohol or substance use?: No How many times in the past year have you had 4 or more drinks in a day?: None How many times in the past year have you used a recreational drug or used a prescription medication for nonmedical reasons?: None Do you need a note to return Do you need a note to return to daycare/school/sports/work: No Coronavirus Screening Screening Have you traveled outside of [facility] or [facility] in the last 14 days.: No Has patient experienced coronavirus symptoms: No PFS Medical History (Updated 05/07/20 @ 14:32 by CHANCE Soler) Breast mass, right Surgical History section History of - surgery History of - surgery Family History Mother Hyperlipidemia Father Alzheimer disease Social History Does the Patient have a Healthcare Proxy: No Does Patient have a DNR?: No Does Patient have a Living Will?: No Hx Recent Travel (where): No HPI Additional HPI HPI Details: HPI as presented in nurse's intake note. Found this lump in shower yesterday. She feels that it is bigger today. No pain no discharge. She had a hysterectomy in the distant past. Her last mammogram was about three years ago at this facility. She has no current PCP last one was in [place], [place]. She said she had one lump in the past and knows it wasn't cancer. Review of Systems Const Reports system reviewed and no additional complaints, except as documented Details: general health good Exam Const General: cooperative, healthy appearing, well developed and acute distress Orientation: alert, awake and oriented x3 HENMT Head: normocephalic Ears: hearing grossly normal bilaterally Eyes Alignment and Position: alignment normal Conjunctivae: conjunctivae normal Sclera: sclerae n ormal Neck Lymphatic: no lymphadenopathy noted Chest Breast/Axilla Inspection: normal inspection of the breasts and normal inspection of the axillae Breast/Axilla Palpation: normal palpation of the axillae, no axillary lymphadenopathy and abnormal palpation of the breast (small lesion firm, immobile non-tender 1 cm round at 9 o'clock right) Resp Auscultation: clear to auscultation bilaterally Other: respiratory rate in normal range Cardio Rate: regular rate Rhythm: regular rhythm Heart Sounds: S1 normal and S2 normal Other: heart rate in normal range Musc Other: walks in Skin Hair: normal Nails: normal Other: warm and dry, skin texture normal, color good Psych Appearance: grossly normal Mental Status: mental status grossly normal Mood: congruent mood Affect: normal affect Attitude: cooperative Thought Process: normal Assessment Plan Assessment Plan (1) Breast mass, right: Status: Acute Code(s): N63.10 - Unspecified lump in the right breast, unspecified quadrant SNOMED Code(s): 74920841 Category: Medical Plan - CHANCE Soler: patient advised, I will order a diagnostic mammogram. She has been given an appointment to establishwith Danielle Robbins in May. We will call results to her. I will facilitate follow up as needed after we get results. Orders: Orders: 3D DIG MAMMO DIAG RT Today Electronically Signed By: <Electronically signed by Yee FLETCHER> Date/Time Signed: 05/07/20 1436 Name Value Range Interpretation Code Description Data Octavia rce(s) Supporting Document(s) ID Date Data Source [id number] 01/28/2020 08:03:45 AM EDT [facility] PCName: Bridger AraujoDOB: 1960Provider: TimurCarolina celestinFERN: 01/05/2020 Chief ComplaintLumbar spine pain Reason For VisitVerbal consent obtained from the patient for telemedicine visit. This assessment was done using telemedicine as a result of social distancing due to the outbreak of COVID-19. 8 minutes Bridger Araujo is an established patient here for follow up. Rebecca DOI: 03/12/13. History of Present IllnessThis is a pleasant 59-year-old female who presents today for a virtual visit. She does discuss that she has continued pain in her lower back. She denies a lot of radicular symptoms. She does have some pain up in her thoracic spine as well. She has used occasional hydrocodone which is very helpful for her. She does also have Flexeril however she does have fairly significant sedation with this medication. Physical ExamThe patient is alert and oriented 3. She is in no acute distress. She is moving around freely during the discussion today. ROM is limited in all directions. She does have pain to the touch over the lumbar spine, beltline area and some pain under and to the right of her left scapular region. Assessment 1. Lower back pain (724.2) (M54.5) 2. Lumbar radiculopathy (724.4) (M54.16) PlanPlan, Assessment and Recommendation(s) Worker's Compensation. She has been instructed to call the office if any problems occur. The nature of narcotic medication was discussed today. The need to abstain from driving, alcohol use, operating machinery, performing important work, and other high risk activities was reviewed. Prescriptions cannot be renewed by telephone. The patient does have continued lower back pain. She is going to contact the office when she is able to get down here for some injections. The injections she's had in the past have been helpful for her. She was given a small prescription for hydrocodone today. Ultimately she may have to be established at the pain clinic for nonsurgical treatment and long-term medication management. Work / School NoteThe incident described by the patient is a competent medical cause of this injury. The patient's complaints are consistent with the history of the injury/illness. The patient's history of the injury/illness is consistent with my objective findings. The percentage of temporary impairment is 50%. The patient is not working at this time. Bridger Araujo is on permanent partial disability moderate. DisclaimersThis document was dictated and electronically signed using AppCard software. A reasonable attempt at proof reading has been made to minimize errors. Please call with any questions. Signatures Electronically signed by : Carolina Biggs NP; Jan 05 2020 1:05PM EST (Co-author) Electronically signed by : Jaime Rossa M.D.; Jan 05 2020 2:14PM EST Electronically signed by : Carolina Biggs NP; Jan 23 2020 9:15AM EST (Co-author) Electronically signed by : Jaime Rosas M.D.; Jan 23 2020 3:15PM EST Electronically signed by : Carolina Biggs NP; Jan 27 2020 2:08PM EST (Co-author) Electronically signed by : Jaime Rosas M.D.; Jan 28 2020 8:03AM EST Name Value Range Interpretation Code Description Data Octavia rce(s) Supporting Document(s) Procedure Social History Code Duration Value Status Description Data Source(s ) Alcohol intake 09/15/2020 12:00:00 AM EST Ex-drinker (finding) comp leted Ex- drinker (finding) [facility] Cigarette pack-years 09/15/2020 12:00:00 AM EST UNK completed [facility] Cigarettes smoked current (pack per day) - Reported 09/15/20 12:00:00 AM EST UNK completed [facility] Smoking 09/15/2020 12:00:00 AM EST Current every day smoker co mpleted Current every day smoker [facility] 08/30/2020 08:32:00 AM EST No completed No [facility] 08/30/2020 08:32:00 AM EST No completed No [facility] 08/30/2020 08:32:00 AM EST Current every day smoker co mpleted Current every day smoker [facility] Smoking 08/30/2020 08:32:00 AM EST Current every day smoker co mpleted Current every day smoker [facility] Smoking 06/11/2020 10:38:00 AM EDT Current every day smoker co mpleted Current every day smoker [facility] Smoking 06/11/2020 10:38:00 AM EDT Current every day smoker co mpleted Current every day smoker [facility] 06/11/2020 09:38:57 AM EDT No completed No [facility] 06/11/2020 09:38:57 AM EDT No completed No [facility] 06/11/2020 09:38:57 AM EDT Current every day smoker co mpleted Current every day smoker [facility] 06/11/2020 09:38:57 AM EDT No completed No [facility] 06/11/2020 09:38:57 AM EDT No completed No [facility] 06/11/2020 09:38:57 AM EDT Current every day smoker co mpleted Current every day smoker [facility] 06/11/2020 09:38:57 AM EDT No completed No [facility] 06/11/2020 09:38:57 AM EDT No completed No [facility] 06/11/2020 09:38:57 AM EDT Current every day smoker co mpleted Current every day smoker [facility] 06/11/2020 09:38:57 AM EDT No completed No [facility] 06/11/2020 09:38:57 AM EDT No completed No [facility] 06/11/2020 09:38:57 AM EDT Current every day smoker co mpleted Current every day smoker [facility] Smoking 06/11/2020 09:38:00 AM EDT Current every day smoker co mpleted Current every day smoker [facility] Smoking 06/11/2020 09:38:00 AM EDT Current every day smoker co mpleted Current every day smoker [facility] Vital Signs ID Date Data Source UNK Name Value Range Interpretation Code Description Data Source(s) Diastolic blood pressure 68 mm[Hg] 68 mm[Hg] eCW1 ([facility]) Systolic blood pressure 132 mm[Hg] 132 mm[Hg] e CW1 ([facility]) Body temperature 97.1 [degF] 97.1 [degF] eCW1 ( [facility]) Respiratory rate 18 /min 18 /min eCW1 ([facility]) Heart rate 64 /min 64 /min eCW1 ([facility]) Body mass index (BMI) [Ratio] 22.03 kg/m2 22.03 kg/m2 eCW1 ([facility]) Body height 60 [in_i] 60 [in_i] eCW1 ([facility]) Body weight 51.17 kg 51.17 kg eCW1 ([facility]) Body weight 112.8 [lb_av] 112.8 [lb_av] eCW1 ([facility]) Patient Treatment Plan of Care Planned Activity Planned Date Details Description Data Source (s) Lidocaine 25 MG/ML / Prilocaine 25 MG/ML Topical Cream 09/27/2020 12:00:00 AM EST eCW1 ([facility]) anastrozole 1 MG Oral Tablet 09/08/2020 12:00:00 AM EST [facility] Sertraline 25 MG Oral Tablet 08/03/2020 12:00:00 AM EST [facility] Sumatriptan 25 MG Oral Tablet 07/29/2020 12:00:00 AM EST [facility] Acetaminophen 300 MG / Codeine Phosphate 15 MG Oral Ta blet 06/11/2020 12:00:00 AM EDT [facility]
--- OUTSIDE RECORDS SUMMARY | 2020-10-05 06:41 | CCD ---
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 Name Role Phone Tricia Coleman Unavailable PROBLEMS Type Condition ICD9-CM Code NQP91-OD Code Onset Dates Condition S tatus SNOMED Code Notes Problem Smoker F17.200 Active 85635509 Problem Malignant neoplasm of unspecified site of right female breast C50.911 Active 150119265 Problem Malignant neoplasm of right female breast, unspecified estrogen receptor status, unspecified site of breast C50.911 Active 3 95493000 ALLERGIES Allergen (clinical drug ingredient) Drug/Non Drug Allergy do cumented on EMR Reaction Allergy Type Onset Date Status Sulfacet-R Hives Drug Allergy Active ENCOUNTERS from 1960 to 2020-07-18 Encounter Location Date Provider Diagnosis [facility] [address] [place] [address] Jun, Tricia Coleman Hilar adenopathy R59.0 ; Palpable lymph node R59.9 and Malignant neoplasm of unspecified site of right female breast C50.911 IMMUNIZATIONS No Information SOCIAL HISTORY Sex Assigned At : Social History Observation Description Sex Assigned At Unknown REASON FOR REFERRAL No Information VITAL SIGNS No information MEDICATIONS Medication SIG (Take, Route, Frequency, Duration) Start Date En d Date Status Zoloft 25 MG 1 tablet Orally Once a day A ctive PROCEDURES No Information RESULTS No Results REASON FOR VISIT MRI results Goals Section No Information Health Concerns No Information MEDICAL EQUIPMENT No Information MENTAL STATUS No Information FUNCTIONAL STATUS No Information ASSESSMENTS Encounter Date Diagnosis Notes Jun, Palpable lymph node (ICD-10 - R59.9) Jun, Hilar adenopathy (ICD-10 - R59.0) Jun, Malignant neoplasm of unspec ified site of right female breast (ICD- 10 - C50.911) PLAN OF TREATMENT Treatment Notes Test Name Order Date [facility] Chest with contrast 2020-07-18 [facility] US GUIDANCE NEEDLE PLACEMENT (Lymph Node Biopsy) 2020-07-18 Next Appt Details Provider Name:Tricia Coleman, 06-08-02 07:00:00 AM, [address] [place] [address], [id number], Provider Name:Tricia Coleman, 06-08-09 10:00:00 AM, [address] [place] [address], [id number], Insurance Providers Payer Name Payer Address Payer Phone Insured Name Patient Relati onship to Insured Coverage Start Date Coverage End Date FORMERLY [facility] [employer] [facility] [address] [facility] [phone] BRIDGER CHAPARRO self
[2020-10-05] MEDS ORDERED: ROCURONIUM BROMIDE 50 MG/5 ML VIAL As Ordered ONE (07:15)
[2020-10-05] MEDS ORDERED: LIDOCAINE 2% 100MG/5ML SDV (FOR ANES.) As Ordered ONE (07:15)
[2020-10-05] MEDS ORDERED: propofoL 200 MG/20 ML VIAL As Ordered ONE ×2 (07:15→07:17)
[2020-10-05] MEDS ORDERED: MIDAZOLAM INJ 2MG/2ML VIAL (J2250 PER 1MG) As Ordered ONE (07:16)
[2020-10-05] MEDS ORDERED: fentaNYL 250 MCG/5 ML INJECTION (J3010) As Ordered ONE (07:16)
[2020-10-05] MEDS ORDERED: LIDOCAINE 1% SDV 30ML VIAL As Ordered ONE (07:19)
[2020-10-05] MEDS ORDERED: BUPIVACAINE HCL 0.25% 30ML VIAL As Ordered ONE (07:19)
[2020-10-05] MEDS ORDERED: SCOPOLAMINE 1MG TRANSDERMAL PATCH TOP ONE (08:15)
--- NOTE | 2020-10-05 11:30 | REP ---
INDICATION: RIGHT BREAST CA. COMPARISON: None. TECHNIQUE/RADIOTRACER AND DOSE: This procedure was performed by Victoria Chau [facility], under the direct supervision of Dr. Bai. Images were reviewed with Dr. Bai prior to dictation. The risks and benefits of the procedure were explained to the patient and informed consent was obtained both orally and written. Directly prior to the start of the procedure, a formal timeout was done in the exam room. Using topical anesthetic and sterile technique 1.034 mCi of filtered Technetium-99m sulfur colloid was injected subdermally in 8 fractionated periareolar injections. FINDINGS: Images obtained 1 hour after injection show a dominant right axilla focus with a less intense adjacent foci. IMPRESSION: There is a dominant right axillary focus with a less intense adjacent foci. <Electronically signed by Victoria Chau > 10/05/20 0923 <Electronically signed by Jose C Bai > 10/05/20 112
--- NOTE | 2020-10-05 16:15 | REP ---
INDICATION: RIGHT LUMPECTOMY W/ INTRAOP NEEDLE PLACEMENT, R- SENT.BIOPSY. COMPARISON: Multiple prior exams dating back to 05/12/2020. TECHNIQUE: Real-time sonographic evaluation of right breast performed. FINDINGS: Ultrasound guidance was provided for Dr. Coleman for wire localization of a HydroMARK clip in the lateral aspect of the right breast. IMPRESSION: Ultrasound guidance for wire localization of HydroMARK clip lateral right breast. RECOMMENDATION: Clinical follow-up. <Electronically signed by Jose C Bai > 10/05/20 8501
--- NOTE | 2020-10-05 16:58 | REP ---
INDICATION: RIGHT SENTINEL LYMPHNODE BIOPSY. COMPARISON: 06/16/2020. TECHNIQUE: Specimen radiograph performed. FINDINGS: Biopsy clip is seen centrally within the specimen. There adjacent microcalcifications. Closest margin of the specimen from the microcalcifications is approximately 7 mm. Localizing wire is seen within the specimen. IMPRESSION: Successful lumpectomy. RECOMMENDATION: Clinical follow-up. <Electronically signed by Jose C Bai > 10/05/20 0334
[2020-10-05] MEDS ORDERED: dexameTHASONE 4 MG/ML 1ML VIAL (J1100 PER 1MG) As Ordered ONE (17:41)
[2020-10-05] MEDS ORDERED: ONDANSETRON 4MG/2ML VIAL As Ordered ONE ×2 (17:41→17:49)
[2020-10-05] MEDS ORDERED: oxyCODONE 5MG TAB As Ordered ONE (17:43)
[2020-10-05] MEDS ORDERED: fentaNYL 100 MCG/2 ML INJECTION (J3010) As Ordered ONE (17:43)
[2020-10-05] MEDS: fentaNYL 100 MCG/2 ML INJECTION (J3010) IV PRN ×4 (17:45→18:02)
[2020-10-05] MEDS ORDERED: ULTR50TA8 PO (17:45)
[2020-10-05] MEDS ORDERED: oxyCODONE 5MG TAB PO PRN (18:30)
[2020-10-05] MEDS ORDERED: ONDANSETRON 4MG/2ML VIAL IV PRN (18:30)
[2020-10-05] MEDS ORDERED: MEPERIDINE INJ 25 MG/ML VIAL (J2175) IV PRN (18:30)
[2020-10-05] MEDS ORDERED: LR 1,000 ML IV SCH (18:30)
[2020-10-05] MEDS ORDERED: METOCLOPRAMIDE INJ 10MG/2ML VIAL (J2765 PER 1) IV PRN (18:30)
[2020-10-05 20:20] VITALS: BP 116/60
--- NOTE | 2020-10-07 16:25 | ROOPDOC ---
[facility] Report Of Operation Report of Operation DATE OF PROCEDURE: 10/05/20 PREPROCEDURE DIAGNOSES: Right breast cancer POSTPROCEDURE DIAGNOSES: right breast cancer PROCEDURE: Right lumpectomy with right sentinel lymph node biopsy and intraop wire placement SURGEON: Beryl Crespo ANESTHESIA: general ESTIMATED BLOOD LOSS: Approximately 100 mL. COMPLICATIONS: none REMARKS: the wire, the clip and the calcs are seen in the specimen DESCRIPTION OF PROCEDURE: INDICATIONS: Ms. Nataly Araujo is a 59-year-old woman who was found to have a suspicious right breast palpable mass with suspicious calcifications at the site of palpable abnormality seen on mammogram. Sonographic correlate was identified and US guided biopsy was done. 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 On sono exam there was a right axillary lymph node identified with some thickening of the cortex. The US guided bx of the lymph node was done and was negative for malignancy. MRI of the breast did not show suspicious lymph nodes and there was no need for excision of the biopsied lymph node. Surgical options were discussed with the patient and she opted for breast conservative surgery with sentinel lymph node biopsy on the right. She was medically cleared for surgery by her primary care doctor. Risks and possible complications of surgical procedure including bleeding, infection and injury to surrounding structures were explained to the patient and she wished to proceed. Consent was signed. My initials were placed on the operative site. Subcutaneous injection of 5000 units of heparin was done in Preop. The injection of radioactive tracer was done in radiology department preoperatively. Lymphoscintigraphy imaging was reviewed in preop. DETAILS: Patient was taken to the operating room and placed on the operating room table. A sign in was called stating patients name, date of and the procedure to be done. Preoperative antibiotics were infused. Smooth induction of general anesthesia was done. Patients hands were extended on arm rests. Care was taken not to over extend the arms. Pillow was placed under the knees and a foam was placed under the heels. Sequential compression devices were placed and assured to function correctly. Procedure was started with right breast intraop wire localization. Appropriate time out was done and patients name, date of , and the procedure to be done were confirmed. Right breast was cleaned by me. Intraoperative ultrasound was used to confirm location of the Hydromark clip. Location of the clip was marked on the skin as well. 21 G Kopans Breast Lesion Localization Needle was used to place 25 cm wire through the lesion. The wire was placed through the clip and the end of the wire was passed a centimeter deep. The images were captured confirming adequate placement of the localizing wire. Supervisor Claims assisted with the wire placement. Next, patients right breast and axilla were prepped and draped in the usual fashion. Care was taken not to displace the wire. Appropriate time out was done again prior second part of the procedure. Patients name, date of , and the procedure to be done were confirmed. Procedure was started with sentinel lymph node biopsy. Neoprobe was used to locate area of maximum intensity of the signal. Local anesthetic using 1% lidocaine and 0.25 % Marcaine 50/50 mix was injected. An incision was made with scalpel number 15 at the inferior aspect of axillary hair line in the right axilla where the maximum signal was identified. The sharp and blunt dissection was continued through the subcutaneous adipose tissue. Clavipectoral fascia was opened. Neoprobe was used to guide the dissection. First sentinel lymph node was identified and excised. The ex-vivo 10 second count was 5947. Second sentinel lymph node was identified and excised as well. The ex-vivo 10 second count was [id number]. There were a few additional lymph nodes with some tracer in the axilla however their signal value was below the 10% cut off of the highest signal node. The specimens were labeled with patients name and sent to pathology. The 10 second count of the background was 349. Adequate hemostasis was assured. Additional local anesthetic was injected into surrounding tissues. Wound was irrigated. Clavipectoral fascia was closed with 3-0 Vicryl interrupted suture. Dermal layer was closed at the end of the case with 3-0 Monocryl and skin was closed with 4-0 Monocryl. Surgical glue was applied to the incision at the end of the procedure. Next, our attention was turned toward the right breast. Local anesthetic using 1% lidocaine and 0.25 % Marcaine 50/50 mix was injected at the site of planned right periareolar incision. The incision was made with the scalpel. Subcutaneous skin flaps were raised and the guide wire was carefully pulled into the wound. Dissection was carries along the wire until the previously marked on the skin area of target lesion location was encountered. At this point, wider excision of the tissue surrounding the wire was done. The Hydromark clip was identified in the tissue with intraoperative hockey stick ultrasound probe. The end of the wire was identified with palpation. The lumpectomy specimen was carefully removed from the breast keeping its proper orientation and moved to the back table where margins were marked with the surgical inking kit following the standard colors recommendations except for the medial margin which was marked with black ink and posterior margin which was marked by yellow ink. Specimen was then placed on the grid and placed in [employer] [employer] [facility]. The image revealed the wire, the Hydromark and the targeted calcifications in the specimen. The specimen was labeled with patients name and right lumpectomy and sent to pathology. Next, four additional margins were taken: deep, inferior, superior, and medial. Lateral margin was not taken as the remaining subcutaneous tissue was thin and the anterior margin was not taken as the specimens calcifications were felt to be at adequate depth away from the anterior margin. All new margins, defined as margin farthest away from lumpectomy cavity, were marked with black ink. Each margin was sent as a separate specimen with appropriate labeling. Wound was thoroughly irrigated. Adequate hemostasis was assured. Additional local anest hetic was injected into surrounding tissues. Clips were placed to paco the cavity. space was approximated with 2-0 Vicryl. The dermis was closed with 3-0 Monocryl and skin was closed with 4-0 Monocryl. Surgical glue was placed over the incision. Patient emerged from the anesthesia without any problems. Fluffs were placed over the operative site and patients chest was wrapped snuggly in the ASHLEY wrap. Sponge and instrument counts were done and were correct. Patient tolerated procedure well and was taken to recovery unit in stable condition. BERYL CRESPO DO Oct 07, 2020 16:25
== END 2020-10-05 20:35 | disposition home or self-care (01) ==
LOC: M SDC 06:35
PROVIDERS: ATTEND Surgery
DX: C50.911 Malignant neoplasm of unspecified site of right female breast (principal); Z17.0 Estrogen receptor positive status [ER+]; Z92.21 Personal history of antineoplastic chemotherapy; F17.218 Nicotine dependence, cigarettes, with other nicotine-induced disorders; Z88.2 Allergy status to sulfonamides; I95.9 Hypotension, unspecified; Z79.899 Other long term (current) drug therapy
CPT/HCPCS: 19125; 36415; 38525; 78195; 86850; 86900; 86901; 88305; 88307; A9541; J0690; J1100; J1644; J2250; J2405; J3010

== ENCOUNTER → 2020-10-26 | Outpatient (CLI) | payer OTHER ==
[~2020-10-26] MED LIST changes: -HEPARIN SOD (PORCINE) 5000UNITS/ML 1ML VIAL/SYRINGE SQ ONE; -LR 1,000 ML IV ONE; -NS 1,000 ML IV SCH; +ULTR50TA8 PO; -ceFAZolin SOD 2 GM in IV 1 EA IV ONE
--- NOTE | 2020-10-26 14:15 | RADONC.CN ---
Radiation Oncology Hx/Consult Radiation Oncology Consult Date of Service: Oct 26, 2020 Pt Identifier Nataly Aruajo is a 59 year old female current smoker with a history of right breast cancer pT1bN0(sn)M0 ER/MO+ HER2- Grade 2 IDC s/p lumpectomy and SLNB on 10/05/[address] Crespo. She is seen for consideration of adjuvant RT. Diagnosis/Treatment History Oncologic History Patient originally palpated a lower outer quadrant right breast mass 05/12/20 Mammogram and US showing lesion 8:00-9:00 biopsy showing IDC ER/MO+ HER2- Axillary LN biopsy negative. 07/09/20 MRI cT1N0. Some concern for hilar adenopathy 09/15/20 PET-CT negative for disease in chest, recommend ongoing CT screening in a smoker 10/05/20 Lumpectomy and SLNB pT1bN0(sn)M0 Interval History Feels well. Has started letrozole. Having hot flashes as only side effect. Minimal pain at the surgical site and axillary tenderness. Appetite good, energy and weight stable. Past Medical History: Lung nodules Head trauma 1996 Right rotator cuff surgery 2018 Breast history: OCP use 3 years No HRT 1st @ 21 Menses @ 15 Menopause (surgical 39) Past Surgical History: Tubal ligation C sections Family History: Mother alive breast cancer Social History: Current 1 ppd smoker 30+ pack years Drinks 1 drink per week Exposed to lead Allergies / Meds Allergies: Coded Allergies: Sulfa (Sulfonamide Antibiotics) (Verified Allergy, Intermediate, hives, 10/05/20) Home Meds Reported Medications Sumatriptan Succinate (Sumatriptan Succinate) 25 Mg Tablet, 25 MG PO PRN PRN for MIGRAINE, TAB 09/29/20 Sertraline HCl (Sertraline HCl) 25 Mg Tablet, 25 MG PO DAILY, TAB 09/29/20 Discontinued Scripts Tramadol HCl (Ultram) 50 Mg Tablet, 50 MG PO Q6HP PRN for pain MDD 4 Tablet(s) for 3 Days, #10 TAB Prov:BERYL CRESPO DO 10/05/20 Review of Systems Constitutional: Denies: Chills, Fever, Night Sweats Eyes: Denies: Pain, Vision change HEENT: Denies: Head Aches, Dysphagia, Sore Throat Skin: Denies: Rash, Lesions, Bruising Pulmonary: Denies: Dyspnea, Cough Cardiovascular: Denies: Chest Pain, Palpitations, Edema Gastrointestinal: Denies: Nausea, Vomiting, Abdominal Pain, Diarrhea Genitourinary: Denies: Dysuria, Frequency, Incontinence Hematologic: Reports: Bruising (Surgical site right breast); Denies: Petecchia, Enlarged Lymph Nodes Musculoskeletal: Denies: Neck pain, Back pain Neurological: Denies: Weakness, Numbness, Incoordination Psych: Reports: Mood Normal; Denies: Memory Issues, Thoughts of Self Harm Vital Signs Ht 60" Wt 120 lbs BMI 23 T 98 P 54 RR 18 BP 128/81 O2 99% Pain 0 Fatigue 1 General Exam: Positive: Alert, Cooperative, No Acute Distress Eye Exam: Positive: PERRLA, EOMI ENT EXAM: Positive: Mucous membr. moist/pink, Pharynx Normal Neck Exam: Negative: Thyromegaly, Lymphadenopathy Chest Exam: Positive: Normal air movement; Negative: Rales, Rhonchi, Wheezing Heart Exam: Positive: Rate Normal, Regular Rhythm Breast Exam: Positive: Symmetric Bilaterally; Negative: Lumps or Masses (palpable seroma right inferolateral breast), Nipple Retraction, Nipple Discharge, Skin Changes (Healing right lateral periareolar incision and right axillary incision) Abdomen Exam: Positive: Soft; Negative: Tenderness, Mass Extremity Exam: Negative: Edema, Tenderness Skin Exam: Positive: Nl turgor and temperature; Negative: Rash Neuro Exam: Positive: Normal Gait, Normal Speech, Cranial Nerves 3-12 NL Psych Exam: Positive: Mental status NL, Mood NL, Memory Intact Diagnostic and Laboratory Diagnostic Review Radiologic images, relevant labs and pathology reports were personally reviewed and discussed with Ms. Araujo. Assessment and Plan Impression Ms. Aarujo is a 59 year old female current smoker with a history of right breast cancer pT1bN0(sn)M0 ER/MO+ HER2- Grade 2 IDC s/p lumpectomy and SLNB on 10/05/[address] Crespo. She is seen for consideration of adjuvant RT. Stage Right lower outer breast cancer cT1bN0(sn)M0 ER/MO+ HER2- Grade 2 stage IA Performance Status ECOG 0 Plan We had an extensive discussion with Ms. Araujo regarding the diagnosis at hand and available therapeutic options. She is healing well from her surgery and has started the AI without much difficulty except for hot flashes. She has some intermittent discomfort at the surgical site, not overly bothersome. She has a completely resected early stage cancer and is appropriate for APBI per VAMSI guidelines. I offered her 26 Gy in 5 fractions with VMAT given her desire to minimize time a nd round trips for treatment (she takes care of her kids during the day). This is per the recently resulted FAST FORWARD study. I did offer the alternative of 40 Gy in 15 fractions to the partial breast, which is based on studies with longer follow up, however she much prefers the shorter regimen which is entirely reasonable. We discussed the logistics of receiving radiation therapy in detail including the need for a 1-time planning session which can occur in the next 1-2 weeks. We reviewed the side effects of treatment including fatigue, skin reaction and late fibrosis. After discussing the risks, benefits and alternatives to radiation therapy, Ms. Araujo was amenable to pursuing radiotherapy. All questions were answered to the patient's satisfaction. We instructed the patient that if there were any questions,concerns or changes in clinical status in the interim to contact us. Total time of (33) minutes was spent preparing for the visit (2), obtaining HPI (4), examining the patient (3), reviewing diagnostic tests (7), discussing management options (10), coordinating care (1), and writing this note (6). Recommendations 26 Gy in 5 fractions to the right partial breast with VMAT Simulation in the coming 1-2 weeks Tolerating AI so OK to continue during RT ROLA MARTINEZ MD Oct 26, 2020 14:15
== END ==
LOC: M ONCR 13:01
PROVIDERS: ATTEND General Practice
DX: C50.911 Malignant neoplasm of unspecified site of right female breast (principal); F17.200 Nicotine dependence, unspecified, uncomplicated; R23.2 Flushing; Z48.3 Aftercare following surgery for neoplasm

== ENCOUNTER 2020-11-04 13:55 | Outpatient (RCR) | payer OTHER ==
[~2020-11-04 13:55] MED LIST changes: +ACET-897 PO
== END 2020-11-14 ==
LOC: M ONCR 13:55
PROVIDERS: ATTEND General Practice
DX: C50.511 Malignant neoplasm of lower-outer quadrant of right female breast (principal)

== ENCOUNTER → 2020-11-10 | Outpatient (CLI) | payer OTHER ==
--- NOTE | 2020-11-10 18:07 | REP ---
INDICATION: ABNORMAL FINDING OF LUNG FIELD. COMPARISON: CT chest with contrast 07/28/2020. TECHNIQUE: Noncontrast imaging through the chest with coronal and sagittal reconstructions. [employer] [employer] protocol was followed. FINDINGS: On image 54 in the right lower lobe there is a 7 mm subpleural nodule without calcification. This is unchanged. In the medial basal segment of the left lower lobe is a 9 mm solid nodule without calcification, also unchanged. This is on image 57. Some minor dependent atelectatic changes deep sulcus left lower lobe. I do not see new suspicious nodules, masses or acute infiltrates. Some emphysematous changes in the mid and upper lung zones are noted. No pleural effusion, pleural thickening, calcified pleural plaque or pleural based mass there is a 2 mm calcified nodule on image 46 in the right upper lobe unchanged. The heart is not enlarged there is no pericardial thickening or effusion. The aorta is without aneurysm. Small amount of fluid superior pericardial recess is noted. No pathologic sized AP window, precarinal, right paratracheal adenopathy. Hilar nodes on the previous study are difficult to assess in the absence of contrast and with prominent pulmonary arteries centrally. I do not see any calcified nodes about the right hilum on this study likely contrast in azygos vein at the time of the contrast CT. There are degenerative changes in the spine without compression deformity or focal lesion. The sternum, manubrium, medial clavicles, AC joints, scapulae and humeral heads as well as the visualized ribs are without acute finding. The upper abdomen shows that portion of liver intact also the gallbladder and pancreas are seen in part and were unremarkable. No splenomegaly or focal lesion. No ascites. No hiatal hernia. Aorta with some calcification but no aneurysm. Adrenal glands normal. Upper poles kidneys intact. Bowel loops unremarkable. IMPRESSION: 1. Stable 7 mm right lower lobe and a 9 mm left lower lobe pulmonary nodules peripherally. A 2 mm calcified granuloma also seen. Emphysematous changes in the mid and upper lung zones. 2. Pulmonary arteries are mildly prominent and mediastinal nodes are seen, all less than cm in short axis. The hilar nodes are difficult to evaluate in the absence of IV contrast. I would add that there is no evidence of a calcified hilar node. What was felt to be calcified nodes on the previous contrast study represented contrast in different portions of the azygos vein. 3. No other significant or acute finding. <Electronically signed by Filiberto Nolasco > 11/10/20 [id number]
== END ==
LOC: M RAD 15:04
PROVIDERS: ATTEND Internal Medicine Pulmonary Disease
DX: R91.8 Other nonspecific abnormal finding of lung field (principal)

== ENCOUNTER 2020-11-19 13:00 | Outpatient (RCR) | payer OTHER | END 2020-12-15 | LOC: M ONCR 13:00 | PROVIDERS: ATTEND General Practice | DX: C50.511 Malignant neoplasm of lower-outer quadrant of right female breast (principal) ==

== ENCOUNTER → 2021-07-01 | Outpatient (CLI) | payer OTHER ==
--- NOTE | 2021-07-01 11:33 | REP ---
INDICATION: ABN FINDING OF LUNG COMPARISON: Multiple the latest 11/10/2020 also without contrast TECHNIQUE: Standard helical technique without contrast FINDINGS: Once again, there are multiple borderline mediastinal lymph nodes. There is no gross hilar adenopathy, however, the pulmonary nilton are difficult to evaluate without intravenous contrast administration. The do not appear to be significantly changed compared to the prior exam. There are no pleural or pericardial effusions. There is no significant change in appearance of the imaged upper abdomen or imaged osseous structures. Evaluation of the lung fernando shows a stable 7 mm size nodule in the right lower lobe. There is a stable 9 mm size nodule in the left lower lobe. Mild bibasilar subsegmental atelectatic changes/fibrotic changes are again seen increased minimally. There is a stable 5 mm sized pleural based nodule seen in the left upper lobe. There is a stable 5 mm size nodule in the left upper lobe abutting the major fissure. Mild emphysematous changes are noted status quo. No new abnormal nodules, masses, or opacities have developed. IMPRESSION: Stable CT examination of the chest with findings as described above. <Electronically signed by Rob Tate > 07/01/21 [id number]
== END ==
LOC: M RAD 10:36
PROVIDERS: ATTEND Internal Medicine Pulmonary Disease
DX: R91.8 Other nonspecific abnormal finding of lung field (principal)

== ENCOUNTER → 2021-08-01 | Outpatient (CLI) | payer OTHER ==
--- NOTE | 2021-08-01 10:24 | REP ---
INDICATION: DIAG BILATERAL RIGHT BREAST CA S/P RADIATION. COMPARISON: Screening mammogram, 05/12/2020. TECHNIQUE: 2D and 3D cc and MLO views of both breasts were obtained. An additional exaggerated CC view of the right breast was obtained. Targeted ultrasound evaluation of the right breast was performed. FINDINGS: [facility] volumetric breast density pattern is C, the breasts are heterogeneously dense, which may obscure small masses. There is a radiopaque triangle marking the location of the palpable abnormality in the right breast. There are surgical clips in the right breast consistent with partial mastectomy. In the posterior 3rd of the right breast, directly deep to and lateral to the nipple, at the 9 o'clock position, there is an oval, circumscribed, fat density mass, measuring 1.8 cm in diameter. The mass corresponds the palpable abnormality. Right breast ultrasound: 9 o'clock, 6 cm from the nipple, 15 x 13 x 7 mm cyst containing a macrolobulated isoechoic nodule, measuring 7 x 7 x 5 mm. There is a surgical clip within the mass. IMPRESSION: BIRADS/ACR : Category 4: Suspicious abnormality. The patient letter being requested is M0. RECOMMENDATION: Biopsy of the intracystic solid nodule in the right breast. <Electronically signed by Henry Garcia > 08/01/21 [id number]
--- NOTE | 2021-08-02 19:37 | REP ---
INDICATION: DIAG BILATERAL RIGHT BREAST CA S/P RADIATION. COMPARISON: Screening mammogram, 05/12/2020. TECHNIQUE: 2D and 3D cc and MLO views of both breasts were obtained. An additional exaggerated CC view of the right breast was obtained. Targeted ultrasound evaluation of the right breast was performed. FINDINGS: [facility] volumetric breast density pattern is C, the breasts are heterogeneously dense, which may obscure small masses. There is a radiopaque triangle marking the location of the palpable abnormality in the right breast. There are surgical clips in the right breast consistent with partial mastectomy. In the posterior 3rd of the right breast, directly deep to and lateral to the nipple, at the 9 o'clock position, there is an oval, circumscribed, fat density mass, measuring 1.8 cm in diameter. The mass corresponds the palpable abnormality. Right breast ultrasound: 9 o'clock, 6 cm from the nipple, 15 x 13 x 7 mm cyst containing a macrolobulated isoechoic nodule, measuring 7 x 7 x 5 mm. There is a surgical clip within the mass. IMPRESSION: BIRADS/ACR : Category 4: Suspicious abnormality. RECOMMENDATION: Biopsy of the intracystic solid nodule in the right breast. <Electronically signed by Henry Garcia > 08/02/211932
== END ==
LOC: M WHC 07:44
PROVIDERS: ATTEND Surgery
DX: C50.911 Malignant neoplasm of unspecified site of right female breast (principal)
CPT/HCPCS: 76642; 77066; G0279

== ENCOUNTER → 2021-08-10 | Outpatient (CLI) | payer OTHER ==
[~2021-08-10] MED LIST changes: +ALPR0.25 PO; +SERT25TA85 PO; +VITAD400CA FT
[2021-08-10 11:24] VITALS: BP 114/72
== END ==
LOC: M WHCPRO 09:34
PROVIDERS: ATTEND Surgery
DX: D24.1 Benign neoplasm of right breast (principal)
CPT/HCPCS: 19083; 77065; 88305; G0279

== ENCOUNTER → 2025-07-14 | Outpatient (REF) | LOC: M PLAIMG 15:11 | PROVIDERS: ATTEND Internal Medicine | DX: R52 Pain, unspecified (principal) ==